=== PATIENT | female | born 1965 | race African-American/Black ===

== ENCOUNTER 2017-01-31 20:48 | Inpatient (IN) ==
--- NOTE | 2017-01-31 21:48 | General Surgery Consult Note ---
Assessment and Plan (1) ESRD on hemodialysis Status: Acute Assessment and plan: Impression: Bleeding left AV fistula Plan: Site of bleeding was oversewn in the emergency room. See the operative report. Patient had near syncopal episode and appeared disoriented for a brief time. She is being admitted. Current Visit: No History of Present Illness Chief complaint: Bleeding AV fistula History of present illness: Ms. Jiménez is a 51 year old female who presented to the emergency room with bleeding from an AV fistula. Reportedly patient lost 1-1-1/2 L of blood prior to arrival. There is currently a pressure dressing in place and it is not bleeding through. Home Medications Medication Instructions Recorded Confirmed Type Acetaminophen Tab [Tylenol Tab] 650 mg PO Q4H PRN 01/16/17 01/16/17 History Aspirin 325 mg PO DAILY 01/16/17 01/16/17 History Atorvastatin Calcium 40 mg PO BEDTIME 01/16/17 01/16/17 History Epoetin Bony [Procrit] 10,000 unit SUBCUT PRN PRN 01/16/17 01/16/17 History Fluticasone Propionate [Flonase 1 spray BOTH NARES BID 01/16/17 01/16/17 History Allergy Relief] HYDROcodone/ACETAMIN 5-325 [[place] 1 tablet PO Q4H PRN 01/16/17 01/16/17 History 5-325] Heparin Sodium,Porcine [Heparin 10 ml IV PRN PRN 01/16/17 01/16/17 History Sodium] Mag Hydrox/Aluminum Hyd/Simeth 30 ml PO Q6HR PRN 01/16/17 01/16/17 History [Maalox Maximum Strength Susp] Magnesium Hydroxide Susp [Milk of 45 ml PO PRN PRN 01/16/17 01/16/17 History Magnesia] OLANZapine [Olanzapine] 5 mg PO BEDTIME 01/16/17 01/16/17 History Sertraline HCl 50 mg PO DAILY 01/16/17 01/16/17 History Apixaban [Eliquis] 2.5 mg PO BID tablet 01/29/17 Rx hydrALAZINE TAB [Apresoline Tab] 75 mg PO BID tablet 01/29/17 Rx Allergies Allergy/AdvReac Type Severity Reaction Status Date / Time No Known Allergies Allergy Verified 01/16/17 11:43 Medical,Surgical,& Family Hx - Medical History Cardio: History of: Hypertension Neurology: History of: Cerebrovascular Accident HEENT: History of: Eye Problem (cataracts bilaterally) Endocrine: History of: Dyslipidemia Respiratory: History of: Bronchitis, Pneumonia Renal: History of: Renal Failure (Left upper graft, on Dialysis since 2002, goes --, followed by Dr. Caputo) Genitourinary: History of: Recurring Urinary Tract Infections Gastrointestinal: History of: GERD, Hemorrhoids, Hepatitis (Hepatitis C from blood transfusion) Musculoskeletal: History of: Musculoskeletal Problems (Left sided paralysis r/t stroke) Hematology: History of: Anemia (Previous blood transfusion) No history of: Blood Transfusion Reaction Reproductive: History of: Sexually Transmitted Disorders (Trichomoniasis) Other: No history of: Anesthesia Reactions - Surgical History Abdominal Surgeries: Surgical HX of: Abdominal Surgery (Peg tube placement and removal), EGD Reproductive Surgeries: Surgical HX of;: Section, Hysterectomy - Family History Family History: Reports;: Family Hypertension, Family Stroke (father) Denies;: Family Anesthesia Reaction, Family Cancer, Family Diabetes, Family Psychiatric Problems - Social History Smoking Status: Former smoker Frequency of Alcohol Use: None Type of Drug Use: None Exam - Constitutional Vitals: Period Temp Pulse Resp BP Sys/Vera Pulse Ox Last 24 Hr 98.1 F-98.1 F 104-106 17-17 100/53 100 General appearance: mild distress - Extremities Exam Extremities exam: Present: other (A pressure dressing was taken down there was active brisk bleeding from the left AV fistula. This was oversewn. See the operative report.) - Neurological Exam Neurological exam: Present: alert Speech: Present: normal Results - Labs Labs: Labs are pending
--- NOTE | 2017-01-31 21:48 | Emergency Department Note ---
ICamacho Mantricia, am scribing for, and in the presence of, Doreen Lozano DO 21:38. IBlake Debra, DO, personally performed the services described in this documentation, ascribed by Loulou Sauer in my presence, and it is both accurate and complete . Arrival - Arrival Chief Complaint: Non-Specific Stated Complaint: Bleeding ED Nursing Triage Note: Patient is a transfer from [facility] in [place]. Nurse states that patient bump her arm on the wall and her AV fistula began bleeding and would not stop. Reports that patient lost about 1/2 liter of blood. Hx HTN, ESRD, dialysis, CVA with left sided weakness. 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 Nurses report that pt bumped her arm on a wall and her AV fistula began to bleed and would not stop. They report that pt bled about 20 minutes before EMS and lost about a liter of blood. Pt dialyzes every M/W/F . Pt arrived to ED with a pressure dressing but blood is still visible. Pt states that she has been recently complaining that the area around her AV fistula has been swelling. While in ED, pt is diaphoretic but awake and alert and states that she is scared. Pt has a blood pressure of 100/ 53 taken on her let thigh. She is a Brown pt; however, she was brought to ED. Pt has a PMHx of HTN, ESRD, dialysis, and CVA with left sided weakness. No other complaints were reported to ED. Onset (ago): hour(s) Consistency: constant Severity: severe Date of Last Menstrual Period: hysterectomy Allergies/Adverse Reactions: Allergies Allergy/AdvReac Type Severity Reaction Status Date / Time No Known Allergies Allergy Verified 01/16/17 11:43 Home Medications: Home Medications Medication Instructions Recorded Confirmed Type Acetaminophen Tab [Tylenol Tab] 650 mg PO Q4H PRN 01/16/17 01/16/17 History Aspirin 325 mg PO DAILY 01/16/17 01/16/17 History Atorvastatin Calcium 40 mg PO BEDTIME 01/16/17 01/16/17 History Epoetin Bony [Procrit] 10,000 unit SUBCUT PRN PRN 01/16/17 01/16/17 History Fluticasone Propionate [Flonase 1 spray BOTH NARES BID 01/16/17 01/16/17 History Allergy Relief] HYDROcodone/ACETAMIN 5-325 [[place] 1 tablet PO Q4H PRN 01/16/17 01/16/17 History 5-325] Heparin Sodium,Porcine [Heparin 10 ml IV PRN PRN 01/16/17 01/16/17 History Sodium] Mag Hydrox/Aluminum Hyd/Simeth 30 ml PO Q6HR PRN 01/16/17 01/16/17 History [Maalox Maximum Strength Susp] Magnesium Hydroxide Susp [Milk of 45 ml PO PRN PRN 01/16/17 01/16/17 History Magnesia] OLANZapine [Olanzapine] 5 mg PO BEDTIME 01/16/17 01/16/17 History Sertraline HCl 50 mg PO DAILY 01/16/17 01/16/17 History Apixaban [Eliquis] 2.5 mg PO BID tablet 01/29/17 Rx hydrALAZINE TAB [Apresoline Tab] 75 mg PO BID tablet 01/29/17 Rx Review of System - Review of System 12 point system: reviewed and no additional remarkable complaints except as stated - Review of System Constitutional: Present: diaphoresis, other (AV fistula bleed). Absent: chills , fever Respiratory: Absent: cough Cardiovascular: Absent: chest pain Gastrointestinal: Absent: abdominal pain, nausea, vomiting, diarrhea Musculoskeletal: Present: other (LUE swelling). Absent: arm pain, back pain, leg pain, neck pain Medical,Surgical,& Family Hx - Medical History Cardio: History of: Hypertension Neurology: History of: Cerebrovascular Accident HEENT: History of: Eye Problem (cataracts bilaterally) Endocrine: History of: Dyslipidemia Respiratory: History of: Bronchitis, Pneumonia Renal: History of: Renal Failure (Left upper graft, on Dialysis since 2002, goes --, followed by Dr. Caputo) Genitourinary: History of: Recurring Urinary Tract Infections Gastrointestinal: History of: GERD, Hemorrhoids, Hepatitis (Hepatitis C from blood transfusion) Musculoskeletal: History of: Musculoskeletal Problems (Left sided paralysis r/t stroke) Hematology: History of: Anemia (Previous blood transfusion) No history of: Blood Transfusion Reaction Reproductive: History of: Sexually Transmitted Disorders (Trichomoniasis) Other: No history of: Anesthesia Reactions - Surgical History Abdominal Surgeries: Surgical HX of: Abdominal Surgery (Peg tube placement and removal), EGD Reproductive Surgeries: Surgical HX of;: Section, Hysterectomy - Family History Family History: Reports;: Family Hypertension, Family Stroke (father) Denies;: Family Anesthesia Reaction, Family Cancer, Family Diabetes, Family Psychiatric Problems - Social History Smoking Status: Former smoker Frequency of Alcohol Use: None Type of Drug Use: None Exam Vital Signs: Vital Signs Temperature 98.1 F 01/31/17 20:48 Pulse Rate 89 01/31/17 22:26 Respiratory Rate 19 01/31/17 22:26 Blood Pressure 89/53 01/31/17 22:26 O2 Sat by Pulse Oximetry 100 01/31/17 22:26 - General General appearance: alert, in distress (mild), obese - Head Head exam: Present: atraumatic, normocephalic - Eye Eye exam: Present: normal appearance, PERRL, EOMI - ENT ENT exam: Present: normal exam - Neck Neck exam: Present: normal inspection - Chest Chest inspection: Present: normal inspection - Respiratory Respiratory exam: Present: normal lung sounds bilaterally - Cardiovascular Cardiovascular exam: Present: regular rate, normal rhythm, normal heart sounds - Abdominal Exam Abdominal exam: Present: soft. Absent: distention, tenderness, guarding, rebound - Extremities Exam Extremities exam: Present: tenderness, other (open lacerations to left AV fistula; actively bleeding). Absent: normal capillary refill - Back Exam Back exam: Present: normal inspection - Neurological Exam Neurological exam: Present: alert, oriented X3, CN II-XII intact - Psychiatric Psychiatric exam: Present: normal affect, normal mood - Skin Skin exam: Present: warm, dry, intact, normal color Course Course Narrative: pt will be admitted to hospitalist for anemia. Results - Labs CBC & BMP: 01/31/17 21:38 Lab Results: I have reviewed the patients labs - EKG EKG results: interpreted by JAXON, sinus rhythm EKG shows: tachycardia Disposition Clinical Impression: Anemia Case discussed with: patient Disposition: Still a Patient Condition: Stable Time of Disposition: 22:34
--- NOTE | 2017-01-31 21:54 | Operative Note ---
Date of procedure: 01/31/17 Pre-op diagnosis: Hemorrhage from left AV fistula Post-op diagnosis: same Procedure: Procedure performed: Repair of bleeding AV fistula Procedure in detail: When the dressing was removed Betadine was quickly applied and pressure held proximal and distal to the active bleeding site on the fistula. This helped control the fistula bleeding somewhat. A 2-0 nylon suture was then used to repair the bleeding site by oversewing the skin and [id number] fashion. Pressure was released and there was no further bleeding. There is no evidence of hematoma formation. A thrill was auscultated in the fistula both proximal and distal to the repair site. Pressure dressing applied patient tolerated the procedure well. Anesthesia: none Surgeon / Physician: William Kilgore Estimated blood loss: other (50 cc) Specimens: none sent Condition: stable Disposition: no change Discharge Plan - Discharge Medications No Action Sertraline HCl 50 mg PO DAILY OLANZapine [Olanzapine] 5 mg PO BEDTIME HYDROcodone/ACETAMIN 5-325 [[place] 5-325] 1 tablet PO Q4H PRN PRN Reason: Pain Moderate To Severe (4-10) Acetaminophen Tab [Tylenol Tab] 650 mg PO Q4H PRN PRN Reason: Pain Mild (1-3) And/Or Fever Epoetin Bony [Procrit] 10,000 unit SUBCUT PRN PRN PRN Reason: Dialysis Heparin Sodium,Porcine [Heparin Sodium] 10 ml IV PRN PRN PRN Reason: Dialysis Mag Hydrox/Aluminum Hyd/Simeth [Maalox Maximum Strength Susp] 30 ml PO Q6HR PRN PRN Reason: Indigestion Magnesium Hydroxide Susp [Milk of Magnesia] 45 ml PO PRN PRN PRN Reason: Indigestion Fluticasone Propionate [Flonase Allergy Relief] 1 spray BOTH NARES BID Atorvastatin Calcium 40 mg PO BEDTIME Aspirin 325 mg PO DAILY Apixaban [Eliquis] 2.5 mg PO BID tablet hydrALAZINE TAB [Apresoline Tab] 75 mg PO BID tablet - Follow Up or Referral - Forms/Instructions
[2017-01-31 22:17] LABS: Basophils % 0.2 % (0.0-0.8); Eosinophils # 0.2 10*3/uL (0.0-0.87); Eosinophils % 1.4 % (0.00-10.9); Hematocrit 18.5 VOL% (35.7-47.0); Immature Granulocytes % 0.6 %; Immature Granulocytes Absolute 0.08 #; Lymphocytes # 2.1 10*3/uL (1.4-4.0); Lymphocytes % 15.3 % (21.3-54.2); Mean Corpuscular HGB Conc 31.4 GM/DL (32-36); Mean Corpuscular Hemoglobin 32 PG (27-34); Mean Corpuscular Volume 102.8 FL (87-102); Mean Platelet Volume 9.2 FL (9.6-12.0); Monocytes # 0.8 10*3/uL (0.11-0.8); Monocytes % 5.5 % (1.7-12.7); Neutrophils # 10.7 10*3/uL (1.4-7.4); Platelet Count 352 T/CUMM (130-400); Red Cell Distribution Width 14.7 % (9.3-17.3); White Blood Count 13.8 T/CUMM (4-12)
[2017-01-31 22:19] LABS: Hemoglobin 5.8 GM/DL (12.0-16.0)
[2017-01-31] MEDS ORDERED: ACETAMINOPHEN 325 MG TABLET PO PRN (22:45)
[2017-01-31] MEDS ORDERED: SODIUM CHLORIDE 0.9% 250 ML IV PRN (22:45)
[2017-01-31 22:46] LABS: Alanine Aminotransferase 14 U/L (13-56); Alkaline Phosphatase 67 U/L (45-117); Aspartate Amino Transferase 20 U/L (0-37); Bilirubin,Total < 0.39 MG/DL (0.2-1.0); Blood Urea Nitrogen 44 MG/DL (7-18); Calcium 7.2 MG/DL (8.5-10.1); Glucose 142 MG/DL (74-106); Osmolality,Calculated 287.7 MOS/KG (273-304); Sodium 138 MMOL/L (136-145); Total Protein 5.5 G/DL (6.4-8.3)
[2017-01-31 22:48] LABS: Troponin I Only 0.102 NG/ML (0.00-0.045)
[2017-01-31 22:49] LABS: Potassium 6.4 MMOL/L (3.5-5.1)
[2017-01-31] MEDS ORDERED: DEXTROSE 50% 25 GM/50 ML SYRINGE IV STA (23:05)
[2017-01-31] MEDS ORDERED: INSULIN REGULAR 100 UNIT/ML IV STA (23:06)
[2017-01-31] MEDS ORDERED: SODIUM POLYSTYRENE SULFATE 15 GM/60 ML BOTTLE PO STA (23:07)
[2017-01-31] MEDS ORDERED: ACETAMINOPHEN 325 MG TABLET ONE (23:08)
[2017-01-31] MEDS ORDERED: ONDANSETRON 4 MG/2 ML VIAL IV PRN (23:23)
[2017-01-31] MEDS ORDERED: GLUCAGON 1 MG VIAL IM PRN (23:31)
[2017-01-31] MEDS ORDERED: DEXTROSE 50% 25 GM/50 ML SYRINGE IV PRN (23:31)
--- NOTE | 2017-01-31 23:48 | Hospitalist History & Physical ---
Assessment and Plan (1) Bleeding Status: Acute Assessment and plan: Patient is a status post AV fistula repair after bleeding from injury. To be followed by Dr. Kilgore Current Visit: Yes (2) Anemia Status: Acute Assessment and plan: Patient has chronic anemia but now acute worsening due to left AV fistula bleeding . Packed RBCs being transfused will monitor hemoglobin and hematocrit Current Visit: Yes (3) Chest pain Status: Acute Assessment and plan: Patient had transient chest pain probably due to hypotension she was severe anemia with bleeding troponins seem to be elevated but patient has end-stage renal disease status and on dialysis will order serial EKG and cardiac enzymes Current Visit: Yes (4) Diabetes Status: Chronic Assessment and plan: Monitor blood sugar with a short acting insulin on as needed Current Visit: No (5) Hyperkalemia Status: Acute Assessment and plan: Patient has end-stage liver disease status and noted hyperkalemia will need to be monitored closely to not see any changes on EKG. Patient was given IV insulin and D50. Kayexalate was also given. Nephrology consulted for need of dialysis Current Visit: Yes (6) ESRD on hemodialysis Status: Chronic Assessment and plan: Nephrology consulted. 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 Jiménez is a 51 year old female with history of hypertension dyslipidemia CVA end-stage renal disease and anemia she has been on dialysis for 12 years and has left upper extremity AV fistula. She was recently admitted after stroke with left-sided weakness and resident at a half-way in [place]. She accidentally bumped her left arm with the food tray and started having bleeding from AV fistula she was reported to have profuse bleeding and approximately 1 L to 1.5 L of blood loss. Pressure dressing was applied prior to coming to the hospital. Patient was seen by Dr. Kilgore and immediately performed repair of a bleeding AV fistula. Bleeding has stopped now. Patient has been hypeotensive and she complained of chest pain which was resolved spontaneously. She had a lab work done which showed hemoglobin 5.8 hematocrit 18.5. This is low compared to recent hemoglobin of 8.2. Her chemistry was significant for potassium 6.4 and creatinine 7.10 and glucose 142 [id number] glucose was 188. EKG was done and did not show any obvious sign of hypokalemia. IV regular insulin and dextrose 50% was ordered along with Kayexalate to treat hypokalemia. Patient blood pressure was improved after fluid given in the ER. Blood was ordered and she is being transfused in the ER. She has no symptoms shortness of breath fever nausea vomiting. She does mention some loose stool today. She has been on dialysis for 12 years and does not make any urine. Home Medications Medication Instructions Recorded Confirmed Type Acetaminophen Tab [Tylenol Tab] 650 mg PO Q4H PRN 01/16/17 01/16/17 History Aspirin 325 mg PO DAILY 01/16/17 01/16/17 History Atorvastatin Calcium 40 mg PO BEDTIME 01/16/17 01/16/17 History Epoetin Bony [Procrit] 10,000 unit SUBCUT PRN PRN 01/16/17 01/16/17 History Fluticasone Propionate [Flonase 1 spray BOTH NARES BID 01/16/17 01/16/17 History Allergy Relief] HYDROcodone/ACETAMIN 5-325 [[place] 1 tablet PO Q4H PRN 01/16/17 01/16/17 History 5-325] Heparin Sodium,Porcine [Heparin 10 ml IV PRN PRN 01/16/17 01/16/17 History Sodium] Mag Hydrox/Aluminum Hyd/Simeth 30 ml PO Q6HR PRN 01/16/17 01/16/17 History [Maalox Maximum Strength Susp] Magnesium Hydroxide Susp [Milk of 45 ml PO PRN PRN 01/16/17 01/16/17 History Magnesia] OLANZapine [Olanzapine] 5 mg PO BEDTIME 01/16/17 01/16/17 History Sertraline HCl 50 mg PO DAILY 01/16/17 01/16/17 History Apixaban [Eliquis] 2.5 mg PO BID tablet 01/29/17 Rx hydrALAZINE TAB [Apresoline Tab] 75 mg PO BID tablet 01/29/17 Rx Allergies Allergy/AdvReac Type Severity Reaction Status Date / Time No Known Allergies Allergy Verified 01/16/17 11:43 Medical,Surgical,& Family Hx - Medical History Cardio: History of: Hypertension Neurology: History of: Cerebrovascular Accident HEENT: History of: Eye Problem (cataracts bilaterally) Endocrine: History of: Dyslipidemia Respiratory: History of: Bronchitis, Pneumonia Renal: History of: Renal Failure (Left upper graft, on Dialysis since 2002, goes -W-, followed by Dr. Caputo) Genitourinary: History of: Recurring Urinary Tract Infections Gastrointestinal: History of: GERD, Hemorrhoids, Hepatitis (Hepatitis C from blood transfusion) Musculoskeletal: History of: Musculoskeletal Problems (Left sided paralysis r/t stroke) Hematology: History of: Anemia (Previous blood transfusion) No history of: Blood Transfusion Reaction Reproductive: History of: Sexually Transmitted Disorders (Trichomoniasis) Other: No history of: Anesthesia Reactions - Surgical History Abdominal Surgeries: Surgical HX of: Abdominal Surgery (Peg tube placement and removal), EGD Reproductive Surgeries: Surgical HX of;: Section, Hysterectomy - Family History Family History: Reports;: Family Hypertension, Family Stroke (father) Denies;: Family Anesthesia Reaction, Family Cancer, Family Diabetes, Family Psychiatric Problems - Social History Smoking Status: Former smoker Frequency of Alcohol Use: None Type of Drug Use: None 12 point system: reviewed and no additional remarkable complaints except as stated (Mentioned in HPI) Exam - Constitutional Vitals: Period Temp Pulse Resp BP Sys/Vera Pulse Ox Last 24 Hr 98.1 F-98.6 F 87-106 17-19 80-104/45-66 98-100 General appearance: no acute distress, over weight - Head Head exam: Present: normal inspection, normocephalic, atraumatic - Eye Eye exam: Present: EOMI. Absent: conjunctival injection Pupils: Present: NEEL, normal accommodation - ENT ENT exam: Present: other (pale oral mucosa otherwise no significant abnormalities) - Neck Neck exam: Present: other (Supple) - Respiratory Respiratory exam: Present: clear to auscultation bilaterally. Absent: rales, rhonchi - Cardiovascular Cardiovascular exam: Present: regular rate and rhythm. Absent: tachycardia - GI/Abdominal GI/Abdominal exam: Present: normal bowel sounds, soft. Absent: distended, tenderness - Extremities Exam Extremities exam: Present: normal inspection. Absent: edema - Neurological Exam Neurological exam: Present: alert, oriented X3, motor sensory deficit (Left- sided weakness ) - Psychiatric Psychiatric exam: Present: normal affect, normal mood - Skin Skin exam: Present: pallor Results - Labs CBC & BMP: 01/31/17 21:38 01/31/17 21:38 Lab Results: I have reviewed the past 24 hour labs Quality Measures - VTE Contraindication to Pharmacological VTE Prophylaxis: Already on Theraputic Agent , No Prophylaxis Needed
[2017-02-01] MEDS ORDERED: INSULIN REGULAR 100 UNIT/ML ONE (00:06)
[2017-02-01] MEDS ORDERED: SODIUM POLYSTYRENE SULFATE 15 GM/60 ML BOTTLE ONE (00:06)
[2017-02-01] MEDS ORDERED: DEXTROSE 50% 25 GM/50 ML SYRINGE IV ONE (00:07)
--- NOTE | 2017-02-01 03:14 | Order Completion Report ---
See report scanned to EMR
[2017-02-01 03:34] LABS: Basophils % 0.3 % (0.0-0.8); Eosinophils % 0.1 % (0.00-10.9); Hematocrit 20.7 VOL% (35.7-47.0); Immature Granulocytes % 0.4 %; Immature Granulocytes Absolute 0.03 #; Lymphocytes # 0.6 10*3/uL (1.4-4.0); Lymphocytes % 8.2 % (21.3-54.2); Mean Corpuscular HGB Conc 30.9 GM/DL (32-36); Mean Corpuscular Hemoglobin 30 PG (27-34); Mean Corpuscular Volume 96.3 FL (87-102); Mean Platelet Volume 9.7 FL (9.6-12.0); Monocytes # 0.4 10*3/uL (0.11-0.8); Monocytes % 5.7 % (1.7-12.7); Neutrophils # 6.6 10*3/uL (1.4-7.4); Neutrophils % 85.3 % (38.7-73.9); Platelet Count 200 T/CUMM (130-400); Red Blood Count 2.15 MC/CUMM (3.8-5.5); Red Cell Distribution Width 19.3 % (9.3-17.3); White Blood Count 7.7 T/CUMM (4-12)
[2017-02-01 03:39] LABS: Hemoglobin 6.4 GM/DL (12.0-16.0)
[2017-02-01 03:51] LABS: Potassium 6.3 MMOL/L (3.5-5.1)
[2017-02-01] MEDS ORDERED: INSULIN REGULAR 100 UNIT/ML IV STA (03:53)
[2017-02-01] MEDS ORDERED: DEXTROSE 50% 25 GM/50 ML SYRINGE IV STA (03:55)
[2017-02-01 04:02] LABS: Albumin 2.3 G/DL (3.4-5.0); Calcium 9.5 MG/DL (8.5-10.1); Osmolality,Calculated 287.7 MOS/KG (273-304); Phosphorous 5.9 MG/DL (2.5-4.9)
[2017-02-01 04:18] LABS: Potassium 6.2 MMOL/L (3.5-5.1)
[2017-02-01] MEDS: INSULIN LISPRO 100 UNIT/ML SUBCUT SCH ×4 (07:08→20:52)
--- NOTE | 2017-02-01 08:46 | Order Completion Report ---
See report scanned to EMR
[2017-02-01] MEDS: PANTOPRAZOLE 40 MG TABLET PO SCH (09:41)
[2017-02-01] MEDS: ASPIRIN 325 MG TABLET PO SCH (09:41)
[2017-02-01] MEDS: FLUTICASONE 50 MCG NASAL SPRAY 16 GM BOTTLE BOTH NARES SCH ×2 (09:41→21:05)
[2017-02-01] MEDS: SERTRALINE 50 MG TABLET PO SCH (09:41)
[2017-02-01 10:38] LABS: Hematocrit 20.6 VOL% (35.7-47.0)
[2017-02-01 10:59] LABS: Calcium 9.4 MG/DL (8.5-10.1)
[2017-02-01 11:06] LABS: Potassium 6.2 MMOL/L (3.5-5.1)
[2017-02-01] MEDS ORDERED: SODIUM POLYSTYRENE SULFATE 15 GM/60 ML BOTTLE PO ONE ×2 (11:08→14:00)
--- NOTE | 2017-02-01 11:16 | Hospitalist Progress Note ---
Assessment and Plan (1) ESRD on hemodialysis Status: Chronic Assessment and plan: Patient is on hemodialysis Thursday. Nephrology is on the case Current Visit: No (2) Acute CVA (cerebrovascular accident) Status: Acute Current Visit: No (3) Anemia Status: Acute Current Visit: Yes Qualifiers: Anemia type: other cause Other causes of anemia: acute posthemorrhagic Qualified Code(s): D62 - Acute posthemorrhagic anemia (4) Hyperkalemia Status: Acute Assessment and plan: Patient will receive Kayexalate for now. Nephrology is attending to this at this point. Current Visit: Yes Hospitalist: Subjective Interval history: Patient has been seen interviewed and examined and chart has been reviewed. Admitted overnight following traumatic injury to dialysis fistula in the left upper extremity. Patient reported got hit in this area with a food tray. There was uncontrollable bleeding being that the patient was alert anticoagulated with anti-factor 10 product. This anticoagulant has since been discontinued. Patient is no longer bleeding. Repeat hematocrit at this point is around 21. Patient however maintains a high potassium and a nephrology is on the case to know about it. No other symptoms. Exam - Constitutional Vitals: Period Temp Pulse Resp BP Sys/Vera Pulse Ox Last 24 Hr 97.4 F-98.6 F 86-106 14-22 80-186/45-87 92-100 General appearance: over weight - Head Head exam: Present: normocephalic - Eye Eye exam: Present: other (Patient has a history of stroke with left-sided weakness of the facets.) - Respiratory Respiratory exam: Present: clear to auscultation bilaterally (Poor inspiratory pool) - Cardiovascular Cardiovascular exam: Present: regular rate and rhythm - Extremities Exam Extremities exam: Present: full ROM - Neurological Exam Neurological exam: Present: other (Chou is not vocalizing) - Skin Skin exam: Present: normal color, warm, dry Results - Labs CBC & BMP: 02/01/17 10:02 02/01/17 10:02 Lab Results: I have reviewed the past 24 hour labs Quality Measures - VTE Contraindication to Pharmacological VTE Prophylaxis: Already on Theraputic Agent , No Prophylaxis Needed
--- NOTE | 2017-02-01 11:34 | Nephrology Consult Note ---
History of Present Illness Chief complaint: End-stage renal disease History of present illness: Ms. Jiménez is a 51 year old female with history of end-stage renal disease due to hypertension diabetes currently dialyzes at the [facility] on a Thursday schedule. She presented on yesterday after her AV graft started hemorrhaging. She emergently had the dialysis site secured by surgery. She has received packed red blood cells and hemoglobin is now 7.0. Serum potassium noted to be 6.2. She is getting scheduled Kayexalate. She mentions that she is feeling better since since last night. No shortness of breath or chest pain. Nephrology is been consulted for renal issues. At this time plan to continue with Kayexalate. We will repeat potassium lab draw this afternoon. If potassium is below 5.9 will plan for hemodialysis on tomorrow. Patient appears to be hemodynamically stable. Home Medications Medication Instructions Recorded Confirmed Type Acetaminophen Tab [Tylenol Tab] 650 mg PO Q4H PRN 01/16/17 01/31/17 History Aspirin 325 mg PO DAILY 01/16/17 01/31/17 History Atorvastatin Calcium 40 mg PO BEDTIME 01/16/17 01/31/17 History Epoetin Bony [Procrit] 10,000 unit SUBCUT PRN PRN 01/16/17 01/31/17 History Fluticasone Propionate [Flonase 1 spray BOTH NARES BID 01/16/17 01/31/17 History Allergy Relief] HYDROcodone/ACETAMIN 5-325 [[place] 1 tablet PO Q4H PRN 01/16/17 01/31/17 History 5-325] Heparin Sodium,Porcine [Heparin 10 ml IV PRN PRN 01/16/17 01/31/17 History Sodium] Mag Hydrox/Aluminum Hyd/Simeth 30 ml PO Q6HR PRN 01/16/17 01/31/17 History [Maalox Maximum Strength Susp] Magnesium Hydroxide Susp [Milk of 45 ml PO PRN PRN 01/16/17 01/31/17 History Magnesia] OLANZapine [Olanzapine] 5 mg PO BEDTIME 01/16/17 01/31/17 History Sertraline HCl 50 mg PO DAILY 01/16/17 01/31/17 History Apixaban [Eliquis] 2.5 mg PO BID tablet 01/29/17 01/31/17 Rx hydrALAZINE TAB [Apresoline Tab] 75 mg PO BID tablet 01/29/17 01/31/17 Rx Allergies Allergy/AdvReac Type Severity Reaction Status Date / Time No Known Allergies Allergy Verified 01/16/17 11:43 Medical,Surgical,& Family Hx - Medical History Cardio: History of: Hypertension Neurology: History of: Cerebrovascular Accident HEENT: History of: Eye Problem (cataracts bilaterally) Endocrine: History of: Dyslipidemia Respiratory: History of: Bronchitis, Pneumonia Renal: History of: Renal Failure (Left upper graft, on Dialysis since 2002, goes --, followed by Dr. Caputo) Genitourinary: History of: Recurring Urinary Tract Infections Gastrointestinal: History of: GERD, Hemorrhoids, Hepatitis (Hepatitis C from blood transfusion) Musculoskeletal: History of: Musculoskeletal Problems (Left sided paralysis r/t stroke) Hematology: History of: Anemia (Previous blood transfusion) No history of: Blood Transfusion Reaction Reproductive: History of: Sexually Transmitted Disorders (Trichomoniasis) Other: No history of: Anesthesia Reactions - Surgical History Abdominal Surgeries: Surgical HX of: Abdominal Surgery (Peg tube placement and removal), EGD Reproductive Surgeries: Surgical HX of;: Section, Hysterectomy - Family History Family History: Reports;: Family Hypertension, Family Stroke (father) Denies;: Family Anesthesia Reaction, Family Cancer, Family Diabetes, Family Psychiatric Problems - Social History Smoking Status: Former smoker Frequency of Alcohol Use: None Type of Drug Use: None Review of Systems Constitutional: fatigue, no anorexia, no fever(s), no lethargy Nose, mouth and throat: no dysphagia Cardiovascular: no chest pain at rest, no chest pain with activity, no dyspnea Respiratory: no dyspnea Exam - Vital Signs Vital signs: Period Temp Pulse Resp BP Sys/Vera Pulse Ox Last 24 Hr 97.4 F-98.6 F 86-106 14-22 80-186/45-87 92-100 - General Appearance General appearance: well-developed, well-nourished EENT: ATNC Neck: supple Respiratory: clear Cardiology: edema, regular rate, regular rhythm Gastrointestinal: normoactive bowel sounds, no tenderness Neurologic: alert and oriented x3, CN 3-12 intact Musculoskeletal: no clubbing Psychiatric: mood/affect appropriate Results - Labs CBC & BMP: 02/01/17 10:02 02/01/17 10:02
[2017-02-01 15:13] LABS: Calcium 9.8 MG/DL (8.5-10.1); Osmolality,Calculated 291.5 MOS/KG (273-304); Potassium 5.5 MMOL/L (3.5-5.1)
[2017-02-01 19:46] LABS: Calcium 9.9 MG/DL (8.5-10.1); Osmolality,Calculated 292.4 MOS/KG (273-304); Potassium 4.3 MMOL/L (3.5-5.1)
[2017-02-01] MEDS: OLANZapine 5 MG TABLET PO SCH (21:05)
[2017-02-01] MEDS: ATORVASTATIN 40 MG TABLET PO SCH (21:06)
[2017-02-02 08:21] LABS: Basophils % 0.3 % (0.0-0.8); Eosinophils # 0.1 10*3/uL (0.0-0.87); Immature Granulocytes % 0.3 %; Immature Granulocytes Absolute 0.01 #; Lymphocytes # 0.4 10*3/uL (1.4-4.0); Lymphocytes % 11.6 % (21.3-54.2); Mean Corpuscular Hemoglobin 30 PG (27-34); Mean Corpuscular Volume 91.7 FL (87-102); Mean Platelet Volume 9.3 FL (9.6-12.0); Monocytes # 0.3 10*3/uL (0.11-0.8); Monocytes % 8.5 % (1.7-12.7); Neutrophils # 2.7 10*3/uL (1.4-7.4); Neutrophils % 77.3 % (38.7-73.9); Platelet Count 150 T/CUMM (130-400); Red Blood Count 1.92 MC/CUMM (3.8-5.5); Red Cell Distribution Width 19.8 % (9.3-17.3); White Blood Count 3.5 T/CUMM (4-12)
[2017-02-02] MEDS: INSULIN LISPRO 100 UNIT/ML SUBCUT SCH ×4 (08:30→20:38)
[2017-02-02 08:35] LABS: Hematocrit 17.6 VOL% (35.7-47.0); Hemoglobin 5.8 GM/DL (12.0-16.0)
[2017-02-02 08:43] LABS: Alanine Aminotransferase 16 U/L (13-56); Albumin 2.2 G/DL (3.4-5.0); Alkaline Phosphatase 44 U/L (45-117); Aspartate Amino Transferase 22 U/L (0-37); Bilirubin,Total < 0.39 MG/DL (0.2-1.0); Blood Urea Nitrogen 55 MG/DL (7-18); Calcium 9.2 MG/DL (8.5-10.1); Glucose 85 MG/DL (74-106); Magnesium 2.2 MG/DL (1.8-2.4); Osmolality,Calculated 288.7 MOS/KG (273-304); Phosphorous 6.8 MG/DL (2.5-4.9); Potassium 3.8 MMOL/L (3.5-5.1); Sodium 138 MMOL/L (136-145); Total Protein 5.8 G/DL (6.4-8.3)
--- NOTE | 2017-02-02 09:27 | Hospitalist Progress Note ---
Assessment and Plan (1) Anemia Status: Acute Assessment and plan: Hemoglobin and hematocrit noted at 5.8/17.6. The patient is scheduled for hemodialysis this a.m. Nephrology to manage. Current Visit: Yes Qualifiers: Anemia type: other cause Other causes of anemia: acute posthemorrhagic Qualified Code(s): D62 - Acute posthemorrhagic anemia (2) Hyperkalemia Status: Acute Assessment and plan: Potassium noted at 3.8 today. We agree with nephrology's plan for hemodialysis today. Current Visit: Yes (3) ESRD on hemodialysis Status: Chronic Assessment and plan: Nephrology to manage. Current Visit: No Hospitalist: Subjective Interval history: Patient seen and examined; chart reviewed. No significant overnight events reported per staff. Potassium 3.8 today; hemodialysis scheduled per nephrology. Exam - Constitutional Vitals: Period Temp Pulse Resp BP Sys/Vera Pulse Ox Last 24 Hr 98.3 F-99.3 F 94-106 17-20 116-140/61-87 95-98 General appearance: normal weight, no acute distress - Head Head exam: Present: normal inspection, normocephalic, atraumatic - Eye Eye exam: Present: EOMI. Absent: conjunctival injection Pupils: Present: NEEL, normal accommodation - ENT ENT exam: Present: normal exam, normal external ear exam, normal oropharynx - Neck Neck exam: Present: normal inspection. Absent: lymphadenopathy, meningismus, tenderness, thyromegaly - Respiratory Respiratory exam: Absent: rales, rhonchi - Cardiovascular Cardiovascular exam: Present: regular rate and rhythm - GI/Abdominal GI/Abdominal exam: Present: normal bowel sounds - Extremities Exam Extremities exam: Present: normal inspection, normal capillary refill, other ( AV fistula noted to left upper arm; positive bruit and thrill) - Back Exam Back exam: Present: normal inspection - Neurological Exam Neurological exam: Present: alert, oriented X3, CN II-XII intact - Psychiatric Psychiatric exam: Present: flat affect - Skin Skin exam: Present: normal color, warm, dry Results - Labs CBC & BMP: 02/02/17 08:03 02/02/17 08:03 Lab Results: I have reviewed the past 24 hour labs Quality Measures - VTE Contraindication to Pharmacological VTE Prophylaxis: Already on Theraputic Agent , No Prophylaxis Needed
--- NOTE | 2017-02-02 11:55 | Dialysis Note ---
Dialysis Note - Dialysis Note Ms. Lindquist is seen during her hemodialysis. Her blood pressures 200/90 and we are going to give her some clonidine 0.1 mg p.o. She is receiving packed cells. Overall she is stable. Her access is not bleeding.
[2017-02-02] MEDS ORDERED: cloNIDine 0.1 MG TABLET PO ONE (12:01)
[2017-02-02 13:35] LABS: Hemoglobin 7.4 GM/DL (12.0-16.0)
[2017-02-02] MEDS: ASPIRIN 325 MG TABLET PO SCH (15:10)
[2017-02-02] MEDS: PANTOPRAZOLE 40 MG TABLET PO SCH (15:31)
[2017-02-02] MEDS: FLUTICASONE 50 MCG NASAL SPRAY 16 GM BOTTLE BOTH NARES SCH ×2 (15:31→20:39)
[2017-02-02] MEDS: SERTRALINE 50 MG TABLET PO SCH (15:31)
[2017-02-02] MEDS: ACETAMINOPHEN 325 MG TABLET PO PRN (17:33)
[2017-02-02] MEDS: ATORVASTATIN 40 MG TABLET PO SCH (20:39)
[2017-02-02] MEDS: OLANZapine 5 MG TABLET PO SCH (20:39)
[2017-02-03 07:40] LABS: Basophils % 0.3 % (0.0-0.8); Eosinophils # 0.1 10*3/uL (0.0-0.87); Hematocrit 18.1 VOL% (35.7-47.0); Immature Granulocytes % 0.5 %; Immature Granulocytes Absolute 0.02 #; Lymphocytes # 0.5 10*3/uL (1.4-4.0); Mean Corpuscular HGB Conc 33.1 GM/DL (32-36); Mean Corpuscular Hemoglobin 31 PG (27-34); Mean Corpuscular Volume 92.3 FL (87-102); Mean Platelet Volume 9.6 FL (9.6-12.0); Monocytes # 0.4 10*3/uL (0.11-0.8); Monocytes % 9.3 % (1.7-12.7); Neutrophils % 75.9 % (38.7-73.9); Platelet Count 160 T/CUMM (130-400); Red Blood Count 1.96 MC/CUMM (3.8-5.5); Red Cell Distribution Width 18.2 % (9.3-17.3)
[2017-02-03 08:13] LABS: Albumin 2.1 G/DL (3.4-5.0); Bilirubin,Total 0.5 MG/DL (0.2-1.0); Calcium 9.4 MG/DL (8.5-10.1); Magnesium 1.9 MG/DL (1.8-2.4); Osmolality,Calculated 284.5 MOS/KG (273-304); Phosphorous 6.6 MG/DL (2.5-4.9); Potassium 3.4 MMOL/L (3.5-5.1); Total Protein 5.8 G/DL (6.4-8.3)
[2017-02-03] MEDS: PANTOPRAZOLE 40 MG TABLET PO SCH (08:28)
[2017-02-03] MEDS: INSULIN LISPRO 100 UNIT/ML SUBCUT SCH ×4 (08:28→20:52)
[2017-02-03] MEDS: FLUTICASONE 50 MCG NASAL SPRAY 16 GM BOTTLE BOTH NARES SCH ×2 (08:28→22:21)
[2017-02-03] MEDS: SERTRALINE 50 MG TABLET PO SCH (08:28)
[2017-02-03] MEDS: ASPIRIN 325 MG TABLET PO SCH (08:29)
--- NOTE | 2017-02-03 09:13 | Hospitalist Progress Note ---
<Anna Tomlinson - Last Filed: 02/03/17 09:10> Assessment and Plan (1) Anemia Status: Acute Assessment and plan: Hemoglobin and hematocrit noted at 5.8/17.6. The patient is scheduled for hemodialysis this a.m. Nephrology to manage. 02/03-hemoglobin hematocrit noted at 6.0/18.1. The patient was transfused during hemodialysis on yesterday and her hemoglobin and hematocrit level improved to 7.4/22.0. No obvious signs of bleeding noted. We will type and screen and transfuse 2 additional units of PRBCs today if okay with nephrology. Current Visit: Yes Qualifiers: Anemia type: other cause Other causes of anemia: acute posthemorrhagic Qualified Code(s): D62 - Acute posthemorrhagic anemia (2) Hyperkalemia Status: Acute Assessment and plan: Potassium noted at 3.8 today. We agree with nephrology's plan for hemodialysis today. Current Visit: Yes (3) ESRD on hemodialysis Status: Chronic Assessment and plan: Nephrology to manage. Current Visit: No Exam - Constitutional Vitals: Period Temp Pulse Resp BP Sys/Vera Pulse Ox Last 24 Hr 98.7 F-100.1 F 81-108 18-20 115-150/59-88 93-97 General appearance: normal weight, no acute distress - Head Head exam: Present: normal inspection, normocephalic, atraumatic - Eye Eye exam: Present: EOMI. Absent: conjunctival injection Pupils: Present: NEEL, normal accommodation - ENT ENT exam: Present: normal exam, normal external ear exam, normal oropharynx - Neck Neck exam: Present: normal inspection. Absent: lymphadenopathy, meningismus, thyromegaly - Respiratory Respiratory exam: Present: clear to auscultation bilaterally. Absent: rales, rhonchi, stridor - Cardiovascular Cardiovascular exam: Present: regular rate and rhythm. Absent: carotid bruit, diastolic murmur, gallop, JVD, rubs, systolic murmur - GI/Abdominal GI/Abdominal exam: Present: normal bowel sounds, soft - Extremities Exam Extremities exam: Present: normal inspection, other (AV fistula noted to left upper arm; positive bruit positive thrill) - Back Exam Back exam: Present: normal inspection - Neurological Exam Neurological exam: Present: alert, oriented X3, CN II-XII intact - Psychiatric Psychiatric exam: Present: normal affect, normal mood - Skin Skin exam: Present: normal color, warm, dry Results - Labs CBC & BMP: 02/03/17 05:31 02/03/17 05:31 Lab Results: I have reviewed the past 24 hour labs Quality Measures - VTE Contraindication to Pharmacological VTE Prophylaxis: Already on Theraputic Agent , No Prophylaxis Needed <Jarred Phillips - Last Filed: 02/03/17 10:47> Hospitalist: Subjective Interval history: I have interviewed and examined the patient and reviewed all available laboratory and radiographic test results. I agree with the assessment and plans as per nurse practitioner Anna Tomlinson. Exam - Constitutional Vitals: Period Temp Pulse Resp BP Sys/Vera Pulse Ox Last 24 Hr 98.7 F-100.1 F 81-108 18-20 115-150/59-88 93-97 Results - Labs CBC & BMP: 02/03/17 05:31 02/03/17 05:31
[2017-02-03] MEDS ORDERED: SODIUM CHLORIDE 0.9% 250 ML IV PRN (11:05)
--- NOTE | 2017-02-03 15:39 | Nephrology Progress Note ---
Nephrology - PN: Subj Interval history: Patient is resting. She did have low-grade temperature today. Hematocrit is still trending down. No active signs of bleeding. Tolerated dialysis on yesterday. Plan for dialysis tomorrow. Will transfuse 2 units packed red blood cells on dialysis tomorrow. Blood cultures are pending. Exam (PN)-Nephrology - Vital Signs Vital signs: Period Temp Pulse Resp BP Sys/Vera Pulse Ox Last 24 Hr 98.6 F-100.1 F 81-108 18-20 115-159/59-88 93-97 - General Appearance General appearance: well-developed, well-nourished EENT: ATNC Neck: supple Respiratory: clear Cardiology: regular rate, regular rhythm Gastrointestinal: normoactive bowel sounds, no tenderness, no guarding Neurologic: alert and oriented x3 Musculoskeletal: no clubbing Psychiatric: mood/affect appropriate - Lab 02/03/17 05:31 02/03/17 05:31 Most recent lab results Calcium 9.4 MG/DL (8.5-10.1) 02/03/17 05:31 Phosphorus 6.6 MG/DL (2.5-4.9) H 02/03/17 05:31 Magnesium 1.9 MG/DL (1.8-2.4) 02/03/17 05:31 Assessment and Plan (1) ESRD on hemodialysis Status: Chronic Current Visit: No (2) Anemia Status: Acute Current Visit: Yes Qualifiers: Anemia type: other cause Other causes of anemia: acute posthemorrhagic Qualified Code(s): D62 - Acute posthemorrhagic anemia (3) Bleeding Status: Acute Current Visit: Yes
[2017-02-03] MEDS ORDERED: EPOETIN ALFA 10,000 UNIT/1 ML VIAL SUBCUT ONE (15:40)
[2017-02-03] MEDS: ACETAMINOPHEN 325 MG TABLET PO PRN ×2 (15:43→20:52)
--- NOTE | 2017-02-03 16:41 | XRay Report ---
Exam: XR chest 1V portable Indication: Fever Comparison study: January 29, 2017 Findings: Cardiac silhouette is mildly enlarged, similar to prior . There has been development of minimal perihilar and right basilar interstitial airspace opacities. There is no focal consolidation, pneumothorax or pleural effusion identified. Prominent degenerative changes noted at the right glenohumeral joint appear similar to prior. No acute osseous abnormality. Impression: Similar mild cardiomegaly and development of slight prominence in the perihilar regions with right more so than left basilar interstitial airspace opacities may represent developing atelectasis or infectious/inflammatory infiltrates. Trace pleural effusions are also suspected. PROCEDURE INTERPRETED AT [facility] DEPARTMENT OF RADIOLOGY Final Report Signed by: Mika Boone
[2017-02-03] MEDS ORDERED: AZITHROMYCIN INJ 500 MG in SODIUM CHLORIDE 0.9% 250 ML IV SCH (18:30)
[2017-02-03] MEDS: LEVALBUTEROL 1.25 MG/3 ML NEB RESP TX SCH ×2 (19:38→23:34)
[2017-02-03] MEDS: ATORVASTATIN 40 MG TABLET PO SCH (20:52)
[2017-02-03] MEDS: OLANZapine 5 MG TABLET PO SCH (20:52)
[2017-02-04] MEDS: LEVALBUTEROL 1.25 MG/3 ML NEB RESP TX SCH ×6 (04:00→23:56)
[2017-02-04 06:43] LABS: Basophils % 0.2 % (0.0-0.8); Eosinophils % 0.5 % (0.00-10.9); Immature Granulocytes % 0.7 %; Immature Granulocytes Absolute 0.03 #; Lymphocytes # 0.5 10*3/uL (1.4-4.0); Lymphocytes % 11.6 % (21.3-54.2); Mean Corpuscular HGB Conc 33.7 GM/DL (32-36); Mean Corpuscular Hemoglobin 31 PG (27-34); Mean Platelet Volume 9.4 FL (9.6-12.0); Monocytes # 0.4 10*3/uL (0.11-0.8); Monocytes % 9.4 % (1.7-12.7); Neutrophils # 3.2 10*3/uL (1.4-7.4); Neutrophils % 77.6 % (38.7-73.9); Platelet Count 150 T/CUMM (130-400); Red Blood Count 1.87 MC/CUMM (3.8-5.5); Red Cell Distribution Width 17.2 % (9.3-17.3); White Blood Count 4.2 T/CUMM (4-12)
[2017-02-04 06:55] LABS: Hematocrit 17.2 VOL% (35.7-47.0); Hemoglobin 5.8 GM/DL (12.0-16.0); Magnesium 1.9 MG/DL (1.8-2.4); Phosphorous 7.8 MG/DL (2.5-4.9)
[2017-02-04] MEDS: ASPIRIN 325 MG TABLET PO SCH (09:18)
[2017-02-04] MEDS: PANTOPRAZOLE 40 MG TABLET PO SCH (09:18)
[2017-02-04] MEDS: SERTRALINE 50 MG TABLET PO SCH (09:18)
[2017-02-04] MEDS: INSULIN LISPRO 100 UNIT/ML SUBCUT SCH ×4 (09:18→20:39)
[2017-02-04] MEDS: FLUTICASONE 50 MCG NASAL SPRAY 16 GM BOTTLE BOTH NARES SCH ×2 (09:18→20:08)
[2017-02-04] MEDS: ACETAMINOPHEN 325 MG TABLET PO PRN ×2 (09:19→21:31)
--- NOTE | 2017-02-04 09:57 | General Surgery Consult Note ---
Assessment and Plan (1) Hemorrhage of arteriovenous fistula Status: Acute Assessment and plan: At this time, we will plan for AV fistula ligation and placement of a tunneled hemodialysis catheter. We will proceed after blood transfusion which is currently in progress per Current Visit: Yes History of Present Illness Chief complaint: bleeding left av fistula History of present illness: Ms. Jiménez is a 51 year old female with end-stage renal disease on hemodialysis who required oversewing of left AV fistula site on 01/31/2017. She was noted to have persistent bleeding from the AV fistula she is currently receiving packed red blood cell transfusion. Of note T-max 100.2 overnight and patient is on Rocephin and Zithromax with blood cultures pending. Home Medications Medication Instructions Recorded Confirmed Type Acetaminophen Tab [Tylenol Tab] 650 mg PO Q4H PRN 01/16/17 01/31/17 History Aspirin 325 mg PO DAILY 01/16/17 01/31/17 History Atorvastatin Calcium 40 mg PO BEDTIME 01/16/17 01/31/17 History Epoetin Bony [Procrit] 10,000 unit SUBCUT PRN PRN 01/16/17 01/31/17 History Fluticasone Propionate [Flonase 1 spray BOTH NARES BID 01/16/17 01/31/17 History Allergy Relief] HYDROcodone/ACETAMIN 5-325 [[place] 1 tablet PO Q4H PRN 01/16/17 01/31/17 History 5-325] Heparin Sodium,Porcine [Heparin 10 ml IV PRN PRN 01/16/17 01/31/17 History Sodium] Mag Hydrox/Aluminum Hyd/Simeth 30 ml PO Q6HR PRN 01/16/17 01/31/17 History [Maalox Maximum Strength Susp] Magnesium Hydroxide Susp [Milk of 45 ml PO PRN PRN 01/16/17 01/31/17 History Magnesia] OLANZapine [Olanzapine] 5 mg PO BEDTIME 01/16/17 01/31/17 History Sertraline HCl 50 mg PO DAILY 01/16/17 01/31/17 History Apixaban [Eliquis] 2.5 mg PO BID tablet 01/29/17 01/31/17 Rx hydrALAZINE TAB [Apresoline Tab] 75 mg PO BID tablet 01/29/17 01/31/17 Rx Allergies Allergy/AdvReac Type Severity Reaction Status Date / Time No Known Allergies Allergy Verified 01/16/17 11:43 Medical,Surgical,& Family Hx - Medical History Cardio: History of: Hypertension Neurology: History of: Cerebrovascular Accident HEENT: History of: Eye Problem (cataracts bilaterally) Endocrine: History of: Dyslipidemia Respiratory: History of: Bronchitis, Pneumonia Renal: History of: Renal Failure (Left upper graft, on Dialysis since 2002, goes --, followed by Dr. Caputo) Genitourinary: History of: Recurring Urinary Tract Infections Gastrointestinal: History of: GERD, Hemorrhoids, Hepatitis (Hepatitis C from blood transfusion) Musculoskeletal: History of: Musculoskeletal Problems (Left sided paralysis r/t stroke) Hematology: History of: Anemia (Previous blood transfusion) No history of: Blood Transfusion Reaction Reproductive: History of: Sexually Transmitted Disorders (Trichomoniasis) Other: No history of: Anesthesia Reactions - Surgical History Abdominal Surgeries: Surgical HX of: Abdominal Surgery (Peg tube placement and removal), EGD Reproductive Surgeries: Surgical HX of;: Section, Hysterectomy - Family History Family History: Reports;: Family Hypertension, Family Stroke (father) Denies;: Family Anesthesia Reaction, Family Cancer, Family Diabetes, Family Psychiatric Problems - Social History Smoking Status: Former smoker Frequency of Alcohol Use: None Type of Drug Use: None - Constitutional Constitutional: Present: fever(s), other (Currently feels very weak with severe anemia) - Cardiovascular Cardiovascular: Absent: chest pain at rest - Gastrointestinal Gastrointestinal: Absent: diarrhea, nausea, vomiting Exam - Constitutional Vitals: Period Temp Pulse Resp BP Sys/Vera Pulse Ox Last 24 Hr 98.3 F-102.9 F 65-115 16-20 122-179/63-99 92-99 - Respiratory Respiratory exam: Present: clear to auscultation bilaterally - Cardiovascular Cardiovascular exam: Present: RRR - GI/Abdominal GI/Abdominal exam: Present: normal bowel sounds, soft. Absent: distended, tenderness - Extremities Exam Extremities exam: Present: other (Oozing from left AV fistula site) - Neurological Exam Neurological exam: Present: alert, oriented X3 Speech: Present: normal - Skin Skin exam: Present: normal color Quality Measures - VTE Contraindication to Pharmacological VTE Prophylaxis: Already on Theraputic Agent , No Prophylaxis Needed Results - Labs CBC & BMP: 02/04/17 05:41 02/03/17 05:31 Lab Results: I have reviewed the past 24 hour labs
[2017-02-04] MEDS ORDERED: DEXTROSE 50% 25 GM/50 ML VIAL IV PRN (11:00)
--- NOTE | 2017-02-04 11:00 | Hospitalist Progress Note ---
<Anna Tomlinson - Last Filed: 02/04/17 10:58> Assessment and Plan (1) Anemia Status: Acute Assessment and plan: Hemoglobin and hematocrit noted at 5.8/17.6. The patient is scheduled for hemodialysis this a.m. Nephrology to manage. 02/03-hemoglobin hematocrit noted at 6.0/18.1. The patient was transfused during hemodialysis on yesterday and her hemoglobin and hematocrit level improved to 7.4/22.0. No obvious signs of bleeding noted. We will type and screen and transfuse 2 additional units of PRBCs today if okay with nephrology. 02/04-blood transfusion placed on hold on yesterday. Hemoglobin and hematocrit noted 5.8/17.2 today. The patient will be transfused during the hemodialysis treatment today per nephrology order. Current Visit: Yes Qualifiers: Anemia type: other cause Other causes of anemia: acute posthemorrhagic Qualified Code(s): D62 - Acute posthemorrhagic anemia (2) Hyperkalemia Status: Acute Assessment and plan: Potassium noted at 3.8 today. We agree with nephrology's plan for hemodialysis today. Current Visit: Yes (3) ESRD on hemodialysis Status: Chronic Assessment and plan: Nephrology to manage. 02/04-noted bloody drainage from left upper extremity AV fistula. General surgery has been consulted to evaluate for Vas-Cath placement. We appreciate the input. We will await further directions. Current Visit: No Exam - Constitutional Vitals: Period Temp Pulse Resp BP Sys/Vera Pulse Ox Last 24 Hr 98.3 F-102.9 F 65-115 16-20 122-179/63-99 92-99 General appearance: normal weight, no acute distress - Head Head exam: Present: normal inspection, normocephalic, atraumatic - Eye Eye exam: Present: EOMI. Absent: conjunctival injection Pupils: Present: NEEL, normal accommodation - ENT ENT exam: Present: normal exam, normal external ear exam, normal oropharynx - Neck Neck exam: Present: normal inspection. Absent: lymphadenopathy, meningismus, tenderness, thyromegaly - Respiratory Respiratory exam: Present: decreased breath sounds - Cardiovascular Cardiovascular exam: Present: regular rate and rhythm. Absent: carotid bruit, diastolic murmur, gallop, JVD, rubs, systolic murmur - GI/Abdominal GI/Abdominal exam: Present: normal bowel sounds, soft - Extremities Exam Extremities exam: Present: edema (Edema noted to left upper AV fistula site; small amount of bloody drainage noted) - Back Exam Back exam: Present: normal inspection - Neurological Exam Neurological exam: Present: alert, oriented X3, altered - Psychiatric Psychiatric exam: Present: normal affect, normal mood - Skin Skin exam: Present: normal color, warm, dry Results - Labs CBC & BMP: 02/04/17 05:41 02/03/17 05:31 Lab Results: I have reviewed the past 24 hour labs Quality Measures - VTE Contraindication to Pharmacological VTE Prophylaxis: Already on Theraputic Agent , No Prophylaxis Needed <Jarred Phillips - Last Filed: 02/04/17 14:22> Hospitalist: Subjective Interval history: Patient was seen and examined by me. I agree with the assessment and plans as per nurse practitioner Anna Tomlinson. Nephrology continues to manage her hemodialysis and anemia. Exam - Constitutional Vitals: Period Temp Pulse Resp BP Sys/Vera Pulse Ox Last 24 Hr 98.3 F-102.9 F 65-115 16-21 122-179/63-99 92-99 Results - Labs CBC & BMP: 02/04/17 05:41 02/03/17 05:31
[2017-02-04] MEDS ORDERED: HEPARIN 5,000 UNIT/1 ML VIAL ONE (12:19)
[2017-02-04] MEDS ORDERED: LIDOCAINE 1%/EPI INJ 20 ML VIAL ONE (12:20)
[2017-02-04] MEDS ORDERED: THROMBIN TOPICAL (RECOMBINANT) 5,000 UNIT VIAL TOP ONE (12:20)
[2017-02-04 12:54] LABS: Hepatitis A Ab IgM Quant 0.12 Index; Hepatitis A Ab IgM Result Negative (Negative); Hepatitis B Core IgM Quant 0.14 Index; Hepatitis B Core IgM Result Negative (Negative); Hepatitis B Surface Ag Quant 0.19 Index; Hepatitis B Surface Ag Result Negative (Negative); Hepatitis C Virus Ab Quant > 11.00 Index; Hepatitis C Virus Ab Result Positive (Negative)
[2017-02-04 12:55] LABS: HIV Antigen/Antibody Result Nonreactive (Nonreactive)
[2017-02-04] MEDS ORDERED: VANCOMYCIN INJ 2,000 MG in SODIUM CHLORIDE 0.9% 500 ML IV ONE ×2 (14:30→21:30)
[2017-02-04] MEDS ORDERED: PROPOFOL 200 MG/20 ML VIAL IV ONE (15:37)
[2017-02-04] MEDS ORDERED: KETAMINE 500 MG/10 ML VIAL ONE (15:38)
[2017-02-04] MEDS ORDERED: fentaNYL 100 MCG/2 ML VIAL ONE (15:38)
[2017-02-04] MEDS ORDERED: MIDAZOLAM 2 MG/2 ML VIAL ONE (15:38)
--- NOTE | 2017-02-04 15:54 | Operative Note ---
Date of procedure: 02/04/17 Pre-op diagnosis: End-stage renal disease, history of bleeding left aVF Post-op diagnosis: same Procedure: Procedure performed: #1 attempted right internal jugular hemodialysis catheter # 2 attempted left internal jugular hemodialysis catheter #3 left internal jugular venogram #4 attempted right femoral hemodialysis catheter #5 attempted left femoral hemodialysis catheter #6 venogram left iliac Procedure in detail: After informed consent was obtained the patient was taken operating suite and laid supine on the operating table. After monitored anesthesia was induced the bilateral neck and chest were prepped and draped in usual sterile fashion. After procedural pause the patient was placed in Trendelenburg position and ultrasound brought over through a sterile sleeve cover. Ultrasound the right neck revealed a dilated but compressible right internal jugular vein. The right internal jugular vein was then accessed using an 18-gauge Seldinger needle under ultrasound guidance. There was return of nonpulsatile dark red blood. Guidewire inserted with some resistance at approximately 3-4 cm beyond the expected tip of the needle. Ultrasound confirmed the guidewire to be in the right internal jugular vein and as I followed it down more proximally the right internal jugular vein collapsed. There was obvious stenosis at this level. The needle and guidewire were removed. Ultrasound of the left neck revealed a patent and compressible left internal jugular vein. Left internal jugular vein was accessed using an 18- gauge Seldinger needle under ultrasound guidance on the first attempt. Again the guidewire went easily at first and then encountered resistance. The guidewire was removed and contrast infused through the needle fluoroscopy demonstrated the left internal jugular vein field but collapsed more proximally indicating severe stenosis. There was either a small open area of the left internal jugular vein or collateralization to another vein that filled retrograde extending up the neck and could have been an anterior jugular. The needle and guidewire were removed. Sterile dressings applied to the bilateral neck. Next the bilateral groins were prepped and draped. Ultrasound again brought over in ultrasound the right groin revealed multiple collaterals confluencing into a predominant vein that appeared to be the femoral vein based on its location to the artery. This vein was accessed using an 18-gauge Seldinger needle under ultrasound guidance on the first attempt and there was return of nonpulsatile dark red blood. As the guidewire was advanced into the needle resistance was met. Attempted to reorient the needle but there was return of more bright red and pulsatile blood. The needle was removed and direct pressure was held at the right groin. There was never any hematoma formation. No active bleeding. The left femoral vein was identified and accessed in the same manner as the previous veins. There is nonpulsatile dark red blood. Again resistance was met at about 10 cm or so. The needle was removed and a smallest dilator was placed over the guidewire under Seldinger technique and fluoroscopic guidance. The guidewire was removed and contrast infused through the dilator. This demonstrated the left iliac vein had stenosis and occlusion with collateralization meandering over to what appeared to be either the right iliac or inferior vena cava. I was never able to get a guidewire in that region. The attempt at access was aborted. Because I was unsuccessful I elected not to ligate the left AV fistula which is not currently bleeding at this time. Sterile dressings applied to all access attempt sites. I placed in pressure dressing on the area of the left AV fistula. Again there is no hematoma in that region there are aneurysmal areas with excoriated skin. I discussed the case with Dr. Boone in interventional radiology who will attempt hemodialysis access. I suspect the bleeding from the left AV fistula is a combination of both repeated sticks and an aneurysmal segment as well as possible outflow stenosis creating increased pressure. There is no evidence of infection of her left arm access at this time. Anesthesia: MAC, local Surgeon / Physician: William Kilgore Estimated blood loss: other (Less than 25 cc) Specimens: none sent Condition: stable Disposition: PACU Results - Labs CBC & BMP: 02/04/17 05:41 02/03/17 05:31 Discharge Plan - Discharge Medications No Action Sertraline HCl 50 mg PO DAILY OLANZapine [Olanzapine] 5 mg PO BEDTIME HYDROcodone/ACETAMIN 5-325 [[place] 5-325] 1 tablet PO Q4H PRN PRN Reason: Pain Moderate To Severe (4-10) Acetaminophen Tab [Tylenol Tab] 650 mg PO Q4H PRN PRN Reason: Pain Mild (1-3) And/Or Fever Epoetin Bony [Procrit] 10,000 unit SUBCUT PRN PRN PRN Reason: Dialysis Heparin Sodium,Porcine [Heparin Sodium] 10 ml IV PRN PRN PRN Reason: Dialysis Mag Hydrox/Aluminum Hyd/Simeth [Maalox Maximum Strength Susp] 30 ml PO Q6HR PRN PRN Reason: Indigestion Magnesium Hydroxide Susp [Milk of Magnesia] 45 ml PO PRN PRN PRN Reason: Indigestion Fluticasone Propionate [Flonase Allergy Relief] 1 spray BOTH NARES BID Atorvastatin Calcium 40 mg PO BEDTIME Aspirin 325 mg PO DAILY Apixaban [Eliquis] 2.5 mg PO BID tablet hydrALAZINE TAB [Apresoline Tab] 75 mg PO BID tablet - Follow Up or Referral - Forms/Instructions
[2017-02-04] MEDS ORDERED: LABETALOL 20 MG/4 ML SYRINGE IV ONE ×3 (16:00→16:31)
--- NOTE | 2017-02-04 16:10 | XRay Report ---
XR chest 1V portable Indication: Multiple attempts for dialysis catheter Comparison: Chest x-ray February 03, 2017 Technique: Single frontal view of the chest. Findings: Continued mild cardiomegaly. Continued right infrahilar atelectasis/consolidation. Small pleural fluid not excluded. No pneumothorax. Visualized osseous and surrounding soft tissue structures appear grossly unchanged. IMPRESSION: No significant interval change. PROCEDURE INTERPRETED AT [facility] DEPARTMENT OF RADIOLOGY Final Report Signed by: Dr Tanner Back
--- NOTE | 2017-02-04 16:53 | Event Note ---
Ms. Lindquist is seen in the recovery room. She could not have her dialysis catheter placed after valiant attempts. She will be undergoing a fistulogram with hopeful salvage of the fistula tomorrow versus placement of a dialysis catheter. In any event she will have dialysis tomorrow. All been discussed with Dr. Boone and he has discussed the plan with the patient. She will be n.p.o. after midnight tonight
--- NOTE | 2017-02-04 17:08 | Inventional Radiology Consult ---
Assessment and Plan - Time spent with patient Time spent with patient: Less than 30 minutes (1) Hemorrhage of arteriovenous fistula Problem details: likely due to central venous stenosis Status: Acute Assessment and plan: will attempt central vein recannilzation tomorrow or place TDC if unsuccessful Current Visit: Yes (2) ESRD on hemodialysis Problem details: does not need dialylsis today Status: Chronic Assessment and plan: plan for dialysis tomorrow when access issues are resolved Current Visit: No IR Consult - Data of Consult Patient: new to practice Consult date: 02/04/17 Requesting Physician: William Kilgore - Consult Narrative Reason for consult: ESRD with excessvie bleeding from AVF and cntl venous stenosis History of present illness: Jessy is a 51 year old F with history of end-stage renal disease and multiple failed dialysis access cc requiring intervention and multiple placement of dialysis catheters and the bilateral neck and bilateral groin in the past. Recently she was admitted with excessive bleeding from the left arm arteriovenous fistula. This was treated with conservative measures but the bleeding recurred. Attempts at ligation of the fistula were aborted when a dialysis catheter could not be placed due to extensive central venous stenosis/ occlusions. Pressure dressing was placed at the fistula bleeding site with control of the hemorrhage. I discussed the case with Dr. Kilgore and will attempt fistulogram as the central venous stenosis is also likely causing excessive bleeding from the fistula. If the central veins can be recannulated, maybe this dialysis access can be preserved. If this is not possible, dialysis catheter placement will be pursued by any means necessary including transhepatic or translumbar. I discussed the risks with patient and she agrees to proceed. Patient is n.p.o. after midnight. - Home Medications and Allergies Home Medications: Home Medications Medication Instructions Recorded Confirmed Type Acetaminophen Tab [Tylenol Tab] 650 mg PO Q4H PRN 01/16/17 01/31/17 History Aspirin 325 mg PO DAILY 01/16/17 01/31/17 History Atorvastatin Calcium 40 mg PO BEDTIME 01/16/17 01/31/17 History Epoetin Bony [Procrit] 10,000 unit SUBCUT PRN PRN 01/16/17 01/31/17 History Fluticasone Propionate [Flonase 1 spray BOTH NARES BID 01/16/17 01/31/17 History Allergy Relief] HYDROcodone/ACETAMIN 5-325 [[place] 1 tablet PO Q4H PRN 01/16/17 01/31/17 History 5-325] Heparin Sodium,Porcine [Heparin 10 ml IV PRN PRN 01/16/17 01/31/17 History Sodium] Mag Hydrox/Aluminum Hyd/Simeth 30 ml PO Q6HR PRN 01/16/17 01/31/17 History [Maalox Maximum Strength Susp] Magnesium Hydroxide Susp [Milk of 45 ml PO PRN PRN 01/16/17 01/31/17 History Magnesia] OLANZapine [Olanzapine] 5 mg PO BEDTIME 01/16/17 01/31/17 History Sertraline HCl 50 mg PO DAILY 01/16/17 01/31/17 History Apixaban [Eliquis] 2.5 mg PO BID tablet 01/29/17 01/31/17 Rx hydrALAZINE TAB [Apresoline Tab] 75 mg PO BID tablet 01/29/17 01/31/17 Rx Allergies/Adverse Reactions: Allergies Allergy/AdvReac Type Severity Reaction Status Date / Time No Known Allergies Allergy Verified 01/16/17 11:43 12 point system: reviewed and no additional remarkable complaints except as stated - Neurological Neurological: Present: other (left arm weakness) Medical,Surgical,& Family Hx - Medical History Cardio: History of: Hypertension Neurology: History of: Cerebrovascular Accident No history of: Seizures HEENT: History of: Eye Problem (cataracts bilaterally) Endocrine: History of: Dyslipidemia Respiratory: History of: Bronchitis, Pneumonia Renal: History of: Renal Failure (Left upper graft, on Dialysis since 2002, goes -, followed by Dr. Caputo) Genitourinary: History of: Recurring Urinary Tract Infections Gastrointestinal: History of: GERD, Hemorrhoids, Hepatitis (Hepatitis C from blood transfusion) Musculoskeletal: History of: Musculoskeletal Problems (Left sided paralysis r/t stroke) Hematology: History of: Anemia (Previous blood transfusion) No history of: Blood Transfusion Reaction Reproductive: History of: Sexually Transmitted Disorders (Trichomoniasis) Other: No history of: Anesthesia Reactions - Surgical History Abdominal Surgeries: Surgical HX of: Abdominal Surgery (Peg tube placement and removal), EGD Reproductive Surgeries: Surgical HX of;: Section, Hysterectomy - Family History Family History: Reports;: Family Hypertension, Family Stroke (father) Denies;: Family Anesthesia Reaction, Family Cancer, Family Diabetes, Family Psychiatric Problems - Social History Smoking Status: Former smoker Frequency of Alcohol Use: None Type of Drug Use: None Exam - Labs CBC & BMP: 02/04/17 05:41 02/03/17 05:31 - Constitutional Vitals: Period Temp Pulse Resp BP Sys/Vera Pulse Ox Last 24 Hr 98.3 F-102.9 F 65-115 16-21 122-195/63-99 96-100 General appearance: over weight, morbidly obese - Eye Eye exam: Present: EOMI - Respiratory Respiratory exam: Present: clear to auscultation bilaterally - Cardiovascular Cardiovascular exam: Present: regular rate and rhythm - GI/Abdominal GI/Abdominal exam: Present: normal bowel sounds - Expanded Left Upper Extremity Upper Arm exam: Present: swelling Forearm wrist exam: Present: swelling (bandaging in place so could not assess the fistula directly.) - Neurological Exam Neurological exam: Present: alert, oriented X3 - Psychiatric Psychiatric exam: Present: normal affect, normal mood - Skin Skin exam: Present: normal color, dry
[2017-02-04] MEDS: cloNIDine 0.1 MG TABLET PO PRN (17:33)
--- NOTE | 2017-02-04 17:35 | Anesthesia Post-Op ---
Anesthesia Post OP - Post Ansesthetic Evaluation Patient seen in post op: Yes Resp: within normal limits CV: within normal limits Mental: within normal limits Temp: within normal limits [id number]: within normal limits Nausea and Vomiting: within normal limits Pain: within normal limits
[2017-02-04 19:32] LABS: Hematocrit 27.8 VOL% (35.7-47.0)
[2017-02-04 19:35] LABS: Hemoglobin 9.6 GM/DL (12.0-16.0)
--- NOTE | 2017-02-04 19:42 | Nephrology Progress Note ---
Nephrology - PN: Subj Interval history: Patient is resting. She did have low-grade temperature today. Hematocrit is still trending down. No active signs of bleeding. Tolerated dialysis on yesterday. Plan for dialysis tomorrow. Will transfuse 2 units packed red blood cells on dialysis tomorrow. Blood cultures are pending. 02/04/2017. The patient had an temp of a dialysis catheter placed today however she has several areas of stenosis and could not be placed. At this time interventional radiology has been consulted and making further preparations for a fistulogram and possible preserve the fistula that is in place. If not, a lumbar catheter or transhepatic catheter will be placed. Exam (PN)-Nephrology - Vital Signs Vital signs: Period Temp Pulse Resp BP Sys/Vera Pulse Ox Last 24 Hr 98.3 F-102.9 F 68-115 16-21 122-195/63-99 96-100 - General Appearance General appearance: well-developed EENT: ATNC Neck: supple Respiratory: clear Cardiology: edema, regular rate, regular rhythm Gastrointestinal: normoactive bowel sounds, no tenderness Neurologic: alert and oriented x3 Psychiatric: mood/affect appropriate, cooperative - Lab 02/04/17 18:30 02/03/17 05:31 Most recent lab results Calcium 9.4 MG/DL (8.5-10.1) 02/03/17 05:31 Phosphorus 7.8 MG/DL (2.5-4.9) H 02/04/17 05:41 Magnesium 1.9 MG/DL (1.8-2.4) 02/04/17 05:41 Assessment and Plan (1) ESRD on hemodialysis Problem details: does not need dialylsis today Status: Chronic Current Visit : No (2) Anemia Status: Acute Current Visit: Yes Qualifiers: Anemia type: other cause Other causes of anemia: acute posthemorrhagic Qualified Code(s): D62 - Acute posthemorrhagic anemia (3) Bleeding Status: Acute Current Visit: Yes
[2017-02-04] MEDS: OLANZapine 5 MG TABLET PO SCH (20:08)
[2017-02-04] MEDS: ATORVASTATIN 40 MG TABLET PO SCH (20:08)
--- NOTE | 2017-02-04 20:44 | Order Completion Report ---
See report scanned to EMR
[2017-02-05] MEDS: ACETAMINOPHEN 325 MG TABLET PO PRN (01:32)
[2017-02-05] MEDS: LEVALBUTEROL 1.25 MG/3 ML NEB RESP TX SCH ×6 (03:35→23:56)
[2017-02-05] MEDS: PANTOPRAZOLE 40 MG TABLET PO SCH (08:16)
[2017-02-05] MEDS: ASPIRIN 325 MG TABLET PO SCH (08:16)
[2017-02-05] MEDS: SERTRALINE 50 MG TABLET PO SCH (08:17)
[2017-02-05] MEDS: INSULIN LISPRO 100 UNIT/ML SUBCUT SCH ×4 (10:10→21:07)
[2017-02-05] MEDS: FLUTICASONE 50 MCG NASAL SPRAY 16 GM BOTTLE BOTH NARES SCH ×2 (10:10→20:31)
--- NOTE | 2017-02-05 10:46 | Hospitalist Progress Note ---
<Lu Tomlinsonda - Last Filed: 02/05/17 10:39> Assessment and Plan (1) Anemia Status: Acute Assessment and plan: Hemoglobin and hematocrit noted at 5.8/17.6. The patient is scheduled for hemodialysis this a.m. Nephrology to manage. 02/03-hemoglobin hematocrit noted at 6.0/18.1. The patient was transfused during hemodialysis on yesterday and her hemoglobin and hematocrit level improved to 7.4/22.0. No obvious signs of bleeding noted. We will type and screen and transfuse 2 additional units of PRBCs today if okay with nephrology. 02/04-blood transfusion placed on hold on yesterday. Hemoglobin and hematocrit noted 5.8/17.2 today. The patient will be transfused during the hemodialysis treatment today per nephrology order. 02/05-blood counts improved; hemoglobin hematocrit noted at 9.6 27.8. Awaiting fistulogram this a.m. Current Visit: Yes Qualifiers: Anemia type: other cause Other causes of anemia: acute posthemorrhagic Qualified Code(s): D62 - Acute posthemorrhagic anemia (2) Hyperkalemia Status: Acute Assessment and plan: Potassium noted at 3.8 today. We agree with nephrology's plan for hemodialysis today. Current Visit: Yes (3) ESRD on hemodialysis Problem details: does not need dialylsis today Status: Chronic Assessment and plan: Nephrology to manage. 02/04-noted bloody drainage from left upper extremity AV fistula. General surgery has been consulted to evaluate for Vas-Cath placement. We appreciate the input. We will await further directions. 02/05-multiple unsuccessful attempts to establish Vas-Cath placement on yesterday. Fistulogram this a.m. to evaluate left AV fistula function. We will await fistulogram results for further direction. Current Visit: No Hospitalist: Subjective Interval history: Patient seen and examined; chart reviewed. No significant overnight events reported per staff. Vascular catheter placement unsuccessful on yesterday after multiple attempts. Fistulogram scheduled today to assess left AV fistula function. Exam - Constitutional Vitals: Period Temp Pulse Resp BP Sys/Vera Pulse Ox Last 24 Hr 97.4 F-101.3 F 60-95 16-21 123-195/71-96 95-100 General appearance: normal weight, no acute distress - Head Head exam: Present: normal inspection, normocephalic, atraumatic - Eye Eye exam: Present: EOMI, conjunctival injection Pupils: Present: NEEL, normal accommodation - ENT ENT exam: Present: normal exam, normal external ear exam, normal oropharynx - Neck Neck exam: Present: normal inspection. Absent: lymphadenopathy, meningismus, tenderness, thyromegaly - Respiratory Respiratory exam: Present: decreased breath sounds. Absent: rales, rhonchi, stridor, wheezes - Cardiovascular Cardiovascular exam: Present: regular rate and rhythm. Absent: carotid bruit, diastolic murmur, gallop, JVD, rubs, systolic murmur - GI/Abdominal GI/Abdominal exam: Present: normal bowel sounds, soft - Extremities Exam Extremities exam: Present: normal inspection, normal capillary refill, full ROM , edema (+2 edema noted to left upper extremity), other - Expanded Left Upper Extremity General: Present: normal inspection Shoulder exam: Present: normal inspection, full ROM Upper Arm exam: Present: full ROM, tenderness Elbow exam: Present: normal inspection, full ROM Forearm wrist exam: Present: normal inspection, full ROM Hand wrist exam: Present: normal inspection, full ROM Neuro motor exam: Present: fingers 2-5 abduction intact, thumb adduction intact , thumb IP flexion intact, thumb opposition intact, wrist extension intact Neurosensory exam: Present: 2-point discrimination, median nerve intact, radial nerve intact, ulnar nerve intact Vascular: Present: brachial pulse, normal capillary refill, radial pulse, ulnar pulse - Back Exam Back exam: Present: normal inspection - Neurological Exam Neurological exam: Present: alert, oriented X3, CN II-XII intact - Psychiatric Psychiatric exam: Present: flat affect - Skin Skin exam: Present: normal color, warm, dry Results - Labs CBC & BMP: 02/04/17 18:30 02/03/17 05:31 Lab Results: I have reviewed the past 24 hour labs Quality Measures - VTE Contraindication to Pharmacological VTE Prophylaxis: Already on Theraputic Agent , No Prophylaxis Needed <Jarred Phillips - Last Filed: 02/05/17 14:54> Hospitalist: Subjective Interval history: I have seen and examined the patient. I have reviewed the chart. I agree with the assessment and plans as per nurse practitioner Anna Tomlinson. Exam - Constitutional Vitals: Period Temp Pulse Resp BP Sys/Vera Pulse Ox Last 24 Hr 97.4 F-101.3 F 60-87 14-20 136-214/75-112 95-100 Results - Labs CBC & BMP: 02/04/17 18:30 02/03/17 05:31
[2017-02-05] MEDS: cloNIDine 0.1 MG TABLET PO PRN (14:25)
[2017-02-05] MEDS ORDERED: VANCOMYCIN INJ 750 MG in SODIUM CHLORIDE 0.9% 250 ML IV PRN (14:38)
--- NOTE | 2017-02-05 14:52 | Post Interventional Procedure ---
Pre-op diagnosis: left arm AVF with aneurysms and excessive bleeding Post-op diagnosis: same Procedure: fistulagram with endovascular stent graft repair of the large aneurysmal segment of the AVF Contrast: 120 mL Omni 300 Flouroscopy: 19.9 min Radiologist: Mika Boone Anesthesia: local Specimens: none sent Estimated blood loss: minimal (50 mL) Complications: none Condition: stable Description/Findings: see formal dictation Assessment and Plan - Time spent with patient Time spent with patient: Greater than 30 minutes (1) Hemorrhage of arteriovenous fistula Problem details: likely due to central venous stenosis Status: Acute Assessment and plan: will attempt central vein recannilzation tomorrow or place TDC if unsuccessful Current Visit: Yes (2) ESRD on hemodialysis Problem details: does not need dialylsis today Status: Chronic Assessment and plan: plan for dialysis tomorrow when access issues are resolved Current Visit: No
--- NOTE | 2017-02-05 14:52 | Nephrology Progress Note ---
Nephrology - PN: Subj Interval history: Patient is seen on hemodialysis, she is tolerating this well. I spoke to Dr. Boone who did her vascular intervention today. He placed a stent throughout the aneurysmal changes in her AV shunt. The location of the stent is indicated by the X keenan on the overlying skin. Dr. Boone asked that we try and avoid sticking this area for 7-10 days if possible to allow the stent to heal in place. This stent material is stickable for AV access eventually however the longer we can give it to rest the better. Perhaps the patient could go without dialysis till Thursday and we could retry sticking her access outside of the X marked areas, if unsuccessful perhaps radiology could place him access under ultrasound guidance if the patient is still in the hospital. If the patient is discharged prior to then and we are unable to access the AV shunt outside of the X marked area we could try and stick the stent area at that time. Exam (PN)-Nephrology - Vital Signs Vital signs: Period Temp Pulse Resp BP Sys/Vera Pulse Ox Last 24 Hr 97.4 F-101.3 F 60-87 14-20 136-214/75-112 95-100 - Lab 02/04/17 18:30 02/03/17 05:31 Most recent lab results Calcium 9.4 MG/DL (8.5-10.1) 02/03/17 05:31 Phosphorus 7.8 MG/DL (2.5-4.9) H 02/04/17 05:41 Magnesium 1.9 MG/DL (1.8-2.4) 02/04/17 05:41
--- NOTE | 2017-02-05 15:36 | Interventional Radiology Rpt ---
IR Dialysis Angio w Stent IR Fistulagram Clinical Information: 51-year-old female with end-stage renal disease and dialysis via a left arm fistula. Left arm fistula demonstrates 2 large areas of aneurysmal dilatation with excoriation excessive bleeding. Previous attempts at catheter placement with ligation of the filter had failed. Physician(s): Dr. Boone Procedure: The patient was advised of the benefits, risks, and alternatives of the procedure and informed consent was obtained. A time out was performed with verification of the patient's name, MRN, site of procedure, and type of procedure to be performed. The patient was positioned in the supine position on the angiographic table. The site was prepped and draped in the usual sterile fashion. Local anesthesia only was used for the procedure. A manager union radiograph reveals no relevant abnormality. Lidocaine was injected for local anesthesia. The left arm fistula was accessed with a microintroducer kit and a 4 Fr sheath was placed. A fistulagram demonstrates large aneurysmal segment within the arm with active extravasation to the skin at the area of superficial excoriation. Central venography demonstrates patent, normal caliber central veins without filling defects. Reflux angiogram demonstrates a patent, non-stenotic arterial anastomosis. A Glidewire was passed into the central venous circulation and a 6 Fr short sheath was placed. Measurements were obtained and 10 mm endovascular stent graft placement was chosen to exclude the aneurysmal segment. 3 separate 10 mm fluency stents were placed in a distal proximally overlapping fashion. However, when angioplasty was performed of the proximal extent, the graft did not seat and there was brisk bleeding from the vascular injury. The stent graft was then extended with a 9 mm x 6 cm fluency stent graft. At this point, there was minimal continued filling of the aneurysmal sac with marked decrease in bleeding. A 10 minute delayed image demonstrates no further bleeding/extravasation. All catheters, wires and sheaths were removed. Pressure was held at the puncture site for 10 minutes to obtain hemostasis. The patient tolerated the procedure well and was transferred to the post procedure observation area in stable condition. EBL: <5 ml Complications: None. Fluoroscopy time: 19.9 minutes. Total number of images for this study: 235 Conclusion: 1. Fistulogram demonstrates large aneurysmal segment with areas of active extravasation. 2. Successful endovascular stent graft exclusion of the aneurysmal segment within the arm. Widely patent central venous drainage from the fistula. PROCEDURE INTERPRETED AT [facility] DEPARTMENT OF RADIOLOGY Final Report Signed by: Mika Boone
--- NOTE | 2017-02-05 17:05 | Infectious Disease Consult ---
Assessment and Plan (1) MRSA (methicillin resistant Staphylococcus aureus) septicemia Status: Acute Assessment and plan: Patient predisposed to this infection being a dialysis patient. Further she was recently in hospital after a stroke. We need to make sure there is no complications from this infection, particularly endocarditis. Recommendations: 1. Agree with vancomycin therapy. Goal trough level ~20 2. Echocardiogram to look for endocarditis 3. Repeat blood cultures tomorrow 4. Patient will need aggressive intravenous antibiotic therapy for at least 4 weeks from date of negative blood cultures, longer if the echocardiogram is positive for endocarditis. Following completion of IV antibiotic therapy, because she has catheters in the left of her dialysis which had to be placed while she was still bacteremic, will probably need prolonged suppression with oral antibiotic. Thank you very much for the consult. Will follow. 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 Patient developed quite significant anemia and had blood transfusion. Continue to monitor. Current Visit: Yes (3) Hypertension Status: Acute Current Visit: No (4) ESRD on hemodialysis Problem details: does not need dialylsis today Status: Chronic Current Visit : No History of Present Illness Chief complaint: Positive blood cultures History of present illness: Ms. Jiménez is a 51 year old female with multiple comorbid including end-stage renal disease on hemodialysis for more than 10 years. Patient was recently hospital a few weeks ago after she had a massive stroke which left her with left -sided paralysis. Since then she has been in a assisted. Apparently over the weekend she bumped her left arm on a food tray, this is where she has her AV fistula. After the trauma he sustained profuse bleeding and had to be brought to the hospital. She is admitted 5 days ago. The bleeding was so profuse that she had to have emergency surgery in the emergency room on the fistula. Since being in hospital attempts were made to place hemodialysis catheters however she has had occlusions in all the potential access sites and so this had to be aborted. She had fever 2 days ago and blood cultures were done and today there, positive MRSA so I am asked to assist with management. However he missed dialysis yesterday the patient had interventional radiology place catheters in her fistula today to enable her dialysis. She did not have any specific complaints and I spoke to her today. Home Medications Medication Instructions Recorded Confirmed Type Acetaminophen Tab [Tylenol Tab] 650 mg PO Q4H PRN 01/16/17 01/31/17 History Aspirin 325 mg PO DAILY 01/16/17 01/31/17 History Atorvastatin Calcium 40 mg PO BEDTIME 01/16/17 01/31/17 History Epoetin Bony [Procrit] 10,000 unit SUBCUT PRN PRN 01/16/17 01/31/17 History Fluticasone Propionate [Flonase 1 spray BOTH NARES BID 01/16/17 01/31/17 History Allergy Relief] HYDROcodone/ACETAMIN 5-325 [[place] 1 tablet PO Q4H PRN 01/16/17 01/31/17 History 5-325] Heparin Sodium,Porcine [Heparin 10 ml IV PRN PRN 01/16/17 01/31/17 History Sodium] Mag Hydrox/Aluminum Hyd/Simeth 30 ml PO Q6HR PRN 01/16/17 01/31/17 History [Maalox Maximum Strength Susp] Magnesium Hydroxide Susp [Milk of 45 ml PO PRN PRN 01/16/17 01/31/17 History Magnesia] OLANZapine [Olanzapine] 5 mg PO BEDTIME 01/16/17 01/31/17 History Sertraline HCl 50 mg PO DAILY 01/16/17 01/31/17 History Apixaban [Eliquis] 2.5 mg PO BID tablet 01/29/17 01/31/17 Rx hydrALAZINE TAB [Apresoline Tab] 75 mg PO BID tablet 01/29/17 01/31/17 Rx Allergies Allergy/AdvReac Type Severity Reaction Status Date / Time No Known Allergies Allergy Verified 01/16/17 11:43 12 point system: reviewed and no additional remarkable complaints except as stated (Per HPI) Medical,Surgical,& Family Hx - Medical History Cardio: History of: Hypertension Neurology: History of: Cerebrovascular Accident No history of: Seizures HEENT: History of: Eye Problem (cataracts bilaterally) Endocrine: History of: Dyslipidemia Respiratory: History of: Bronchitis, Pneumonia Renal: History of: Renal Failure (Left upper graft, on Dialysis since 2002, goes --, followed by Dr. Caputo) Genitourinary: History of: Recurring Urinary Tract Infections Gastrointestinal: History of: GERD, Hemorrhoids, Hepatitis (Hepatitis C from blood transfusion) Musculoskeletal: History of: Musculoskeletal Problems (Left sided paralysis r/t stroke) Hematology: History of: Anemia (Previous blood transfusion) No history of: Blood Transfusion Reaction Reproductive: History of: Sexually Transmitted Disorders (Trichomoniasis) Other: No history of: Anesthesia Reactions - Surgical History Abdominal Surgeries: Surgical HX of: Abdominal Surgery (Peg tube placement and removal), EGD Reproductive Surgeries: Surgical HX of;: Section, Hysterectomy - Family History Family History: Reports;: Family Hypertension, Family Stroke (father) Denies;: Family Anesthesia Reaction, Family Cancer, Family Diabetes, Family Psychiatric Problems - Social History Smoking Status: Former smoker Frequency of Alcohol Use: None Type of Drug Use: None Infectious Disease Exam H&P - Constitutional Vitals: Vital Signs Temp Pulse Resp BP Pulse Ox 97.4 F L 69 20 199/103 93 L 02/05/17 07:50 02/05/17 14:40 02/05/17 14:40 02/05/17 13:57 02/05/17 14:40 Intake and Output 02/05/17 02/05/17 02/05/17 07:59 15:59 23:59 Intake Total 620 / 620 Balance 620 / 620 Intake: IV 500 / 500 Vancomycin Inj 5,000 mg 500 / 500 In Ns 500 ml @ 166.667 mls/hr IV ONCE ONE Rx#: [id number] Oral 120 / 120 Other: # Voids 0 Exam: General: Patient relatively comfortable on dialysis, but chronically ill looking HEENT: Mucous membranes pink and moist, anicteric acyanotic, NEEL, no oral exudates Neck: Supple, no thyroid gland enlargement Respiratory system: Breath sounds vesicular, no crepitations or wheezes Cardiovascular: Normal S1 and S2, no murmurs appreciated Abdomen: Normal bowel sounds, soft nontender throughout, no organomegaly or mass Genitourinary: No suprapubic pain or bladder distention, clear urine from Soto catheter Extremities: Severe edema to left upper extremity, dialysis catheters going into the left arm superiorly and inferiorly, there does not appear to be any induration or erythema to that left arm Skin: No rash Reports - Labs CBC & BMP: 02/04/17 18:30 02/03/17 05:31 Labs: Laboratory Results - last 24 hr 02/04/17 02/04/17 02/04/17 17:36 18:30 19:26 Hgb 9.6 L D Hct 27.8 L POC Glucose 318 H 138 H 02/05/17 02/05/17 07:13 10:56 Hgb Hct POC Glucose 146 H 105 - Reports Microbiology: Microbiology 02/03/17 16:43 Blood Culture - Preliminary Blood Gram Positive Cocci 02/04/17 Unknown MRSA (PCR) - Final Blood Mrsa Positive Staph aureus Positive 02/04/17 Unknown MRSA (PCR) - Final Blood Mrsa Positive Staph aureus Positive - Diagnostic Findings Procedure: Chest x-ray: report reviewed by me
[2017-02-05] MEDS: OLANZapine 5 MG TABLET PO SCH (20:31)
[2017-02-05] MEDS: ATORVASTATIN 40 MG TABLET PO SCH (20:31)
[2017-02-05] MEDS ORDERED: VANCOMYCIN INJ 750 MG in SODIUM CHLORIDE 0.9% 250 ML IV ONE (21:30)
[2017-02-06] MEDS: LEVALBUTEROL 1.25 MG/3 ML NEB RESP TX SCH ×6 (03:16→23:30)
--- NOTE | 2017-02-06 08:01 | Event Note ---
Patient seen and examined. She underwent intervention by interventional radiology for her left AV fistula yesterday. Bilateral neck and groin without swelling or bleeding. No obvious hematoma. Left arm fistula has good thrill with no obvious bleeding. I have recommended the patient follow-up with her access surgeon in [place] upon discharge to keep a close eye on the left AV access. If she requires catheter placement would recommend consulting interventional radiology she will need something more complex than typically done in the operating room. She failed bilateral IJ and femoral vein attempts at catheterization.
[2017-02-06] MEDS: ASPIRIN 325 MG TABLET PO SCH (08:22)
[2017-02-06] MEDS: INSULIN LISPRO 100 UNIT/ML SUBCUT SCH ×5 (08:22→23:19)
[2017-02-06] MEDS: SERTRALINE 50 MG TABLET PO SCH (08:22)
[2017-02-06] MEDS: PANTOPRAZOLE 40 MG TABLET PO SCH (08:22)
[2017-02-06] MEDS: FLUTICASONE 50 MCG NASAL SPRAY 16 GM BOTTLE BOTH NARES SCH ×2 (08:22→23:19)
[2017-02-06] MEDS ORDERED: VANCOMYCIN INJ 750 MG in SODIUM CHLORIDE 0.9% 250 ML IV PRN (09:00)
--- NOTE | 2017-02-06 11:05 | Hospitalist Progress Note ---
<Anna Tomlinson - Last Filed: 02/06/17 11:03> Assessment and Plan (1) Anemia Status: Acute Assessment and plan: Hemoglobin and hematocrit noted at 5.8/17.6. The patient is scheduled for hemodialysis this a.m. Nephrology to manage. 02/03-hemoglobin hematocrit noted at 6.0/18.1. The patient was transfused during hemodialysis on yesterday and her hemoglobin and hematocrit level improved to 7.4/22.0. No obvious signs of bleeding noted. We will type and screen and transfuse 2 additional units of PRBCs today if okay with nephrology. 02/04-blood transfusion placed on hold on yesterday. Hemoglobin and hematocrit noted 5.8/17.2 today. The patient will be transfused during the hemodialysis treatment today per nephrology order. 02/05-blood counts improved; hemoglobin hematocrit noted at 9.6 27.8. Awaiting fistulogram this a.m. 10/-hemoglobin and hematocrit remained stable and are noted at 9.6/27.8. No obvious or overt bleeding noted. We will monitor closely. Current Visit: Yes Qualifiers: Anemia type: other cause Other causes of anemia: acute posthemorrhagic Qualified Code(s): D62 - Acute posthemorrhagic anemia (2) Hyperkalemia Status: Acute Assessment and plan: Potassium noted at 3.8 today. We agree with nephrology's plan for hemodialysis today. Current Visit: Yes (3) ESRD on hemodialysis Problem details: does not need dialylsis today Status: Chronic Assessment and plan: Nephrology to manage. 02/04-noted bloody drainage from left upper extremity AV fistula. General surgery has been consulted to evaluate for Vas-Cath placement. We appreciate the input. We will await further directions. 02/05-multiple unsuccessful attempts to establish Vas-Cath placement on yesterday. Fistulogram this a.m. to evaluate left AV fistula function. We will await fistulogram results for further direction. 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 We appreciate the input. Nephrology to resume hemodialysis when indicated. Current Visit: No (4) MRSA bacteremia Status: Acute Assessment and plan: Contact precautions remain in order. Blood cultures positive for MRSA bacteremia. Infectious disease has been consulted and recommendations have been given. We appreciate the input. We will continue vancomycin per infectious disease order. Current Visit: Yes Exam - Constitutional Vitals: Period Temp Pulse Resp BP Sys/Vera Pulse Ox Last 24 Hr 98.4 F-100.1 F 63-92 14-20 150-214/64-112 92-100 General appearance: normal weight, no acute distress - Head Head exam: Present: normal inspection, normocephalic, atraumatic - Eye Eye exam: Present: EOMI. Absent: conjunctival injection Pupils: Present: NEEL, normal accommodation - ENT ENT exam: Present: normal exam, normal external ear exam, normal oropharynx - Neck Neck exam: Present: normal inspection. Absent: lymphadenopathy, meningismus, tenderness, thyromegaly - Respiratory Respiratory exam: Present: clear to auscultation bilaterally. Absent: rales, rhonchi, stridor, wheezes - Cardiovascular Cardiovascular exam: Present: JVD, regular rate and rhythm. Absent: carotid bruit, diastolic murmur, gallop, systolic murmur, tachycardia - GI/Abdominal GI/Abdominal exam: Present: normal bowel sounds, soft - Extremities Exam Extremities exam: Present: normal inspection, other (Left upper extremity AV fistula positive bruit positive thrill noted) - Expanded Left Upper Extremity General: Present: normal inspection Shoulder exam: Present: normal inspection Upper Arm exam: Present: normal inspection Elbow exam: Present: normal inspection Forearm wrist exam: Present: normal inspection Hand wrist exam: Present: normal inspection Neurosensory exam: Present: 2-point discrimination, median nerve intact, radial nerve intact, ulnar nerve intact Vascular: Present: normal capillary refill, radial pulse, ulnar pulse - Back Exam Back exam: Present: normal inspection - Neurological Exam Neurological exam: Present: alert, oriented X3, CN II-XII intact - Psychiatric Psychiatric exam: Present: flat affect - Skin Skin exam: Present: normal color, warm, dry Results - Labs CBC & BMP: 02/04/17 18:30 02/03/17 05:31 Lab Results: I have reviewed the past 24 hour labs Quality Measures - VTE Contraindication to Pharmacological VTE Prophylaxis: Already on Theraputic Agent , No Prophylaxis Needed <Jarred Phillips - Last Filed: 02/06/17 12:29> Hospitalist: Subjective Interval history: I have seen and examined the patient. I reviewed all available laboratory and radiographic test results. I agree with the assessment and plans as per nurse practitioner Anna Tomlinson. Exam - Constitutional Vitals: Period Temp Pulse Resp BP Sys/Vera Pulse Ox Last 24 Hr 98.4 F-100.1 F 63-96 14-20 150-214/64-108 92-100 Results - Labs CBC & BMP: 02/04/17 18:30 02/03/17 05:31
--- NOTE | 2017-02-06 11:23 | Infectious Disease Progress ---
Assessment and Plan (1) MRSA (methicillin resistant Staphylococcus aureus) septicemia Status: Acute Assessment and plan: Patient clinically seems to be doing okay. Recommendations: 1. Continue vancomycin therapy. Goal trough level ~20 2. Follow-up results of echocardiogram 3. Repeat blood cultures today 4. Patient will need aggressive intravenous antibiotic therapy for at least 4 weeks from date of negative blood cultures, longer if the echocardiogram is positive for endocarditis. Following completion of IV antibiotic therapy, because she has catheters in the left of her dialysis which had to be placed while she was still bacteremic, will probably need prolonged suppression with oral antibiotic. 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 Patient developed quite significant anemia and had blood transfusion. Continue to monitor. Current Visit: Yes (3) Hypertension Status: Acute Current Visit: No (4) ESRD on hemodialysis Problem details: does not need dialylsis today Status: Chronic Current Visit : No Infectious Disease - PN: Subj Interval history: Low-grade temperature spike to 100.9 last night, but patient feels very well. No chills, no significant pain to left upper extremity, no nausea vomiting or diarrhea, good appetite. Infectious Disease Exam (PN) - Constitutional Vitals: Temp Pulse Resp BP Pulse Ox 98.4 F 83 20 150/64 97 02/06/17 08:20 02/06/17 08:20 02/06/17 08:20 02/06/17 08:20 02/06/17 08:20 General appearance: normal weight, no acute distress Exam: General appearance: no acute distress, much more alert and interactive today - Eye Eye exam: Present: EOMI. no icterus Pupils: Present: NEEL - ENT ENT exam: no oral exudates - Respiratory Respiratory exam: vesicular BS, no crepitations or wheezes - Cardiovascular Cardiovascular exam: regular rate and rhythm, no murmurs - GI/Abdominal GI/Abdominal exam: normal bowel sounds, soft, non-tender, no organomegaly or mass - Extremities Exam Extremities exam: Severe edema to left upper extremity, bandage over fistula, no induration - Skin Skin exam: no rash Results - Labs CBC & BMP: 02/04/17 18:30 02/03/17 05:31 Lab Results: I have reviewed the past 24 hour labs Quality Measures - VTE Contraindication to Pharmacological VTE Prophylaxis: Already on Theraputic Agent , No Prophylaxis Needed
[2017-02-06] MEDS ORDERED: MAGNESIUM HYDROXIDE SUSP 30 ML UDCUP PO PRN (14:44)
--- NOTE | 2017-02-06 15:30 | Nephrology Progress Note ---
Nephrology - PN: Subj Interval history: Ms Lindquist denies SOB/pain. She is undergoing bedside echocardiogram to rule out endocarditis as she has bacteremia with MRSA on blood cultures last two days. She had endovascular stent placed in [facility] while bacteremic. Multiple attempts at catheter placement were unsuccessful. She had dialysis yesterday for 4.5hrs via the stented fistula s apparent complications. Exam (PN)-Nephrology - Vital Signs Vital signs: Period Temp Pulse Resp BP Sys/Vera Pulse Ox Last 24 Hr 98.4 F-100.1 F 63-96 16-20 150-179/64-84 91-99 - General Appearance General appearance: well-developed, chronically ill EENT: ATNC, PERRL, mucous membranes moist, hearing intact, vision intact Neck: no JVD, no thyromegaly Respiratory: no kyphosis, clear Cardiology: no murmurs, no rub, edema (right arm hematoma, BLE with only trace edema) Gastrointestinal: normoactive bowel sounds, no tenderness Integumentary: no rash, warm and dry Neurologic: no asterixis, hemiplegic (left sided hemiparesis since stroke last month) Musculoskeletal: no deformities, no erythema Psychiatric: mood/affect appropriate, cooperative - Lab 02/04/17 18:30 02/03/17 05:31 Most recent lab results Calcium 9.4 MG/DL (8.5-10.1) 02/03/17 05:31 Phosphorus 7.8 MG/DL (2.5-4.9) H 02/04/17 05:41 Magnesium 1.9 MG/DL (1.8-2.4) 02/04/17 05:41 Assessment and Plan (1) ESRD on hemodialysis Problem details: No acute indication for HD today. Status: Chronic Assessment and plan: Rest fistula over the weekend. Resume next week as indicated. EDW 94 kg. 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
--- NOTE | 2017-02-06 20:02 | Order Completion Report ---
See report scanned to EMR
[2017-02-06] MEDS: ATORVASTATIN 40 MG TABLET PO SCH (20:57)
[2017-02-06] MEDS: OLANZapine 5 MG TABLET PO SCH (20:57)
[2017-02-07] MEDS: LEVALBUTEROL 1.25 MG/3 ML NEB RESP TX SCH ×6 (03:19→23:46)
[2017-02-07] MEDS: INSULIN LISPRO 100 UNIT/ML SUBCUT SCH ×4 (07:47→20:35)
[2017-02-07] MEDS: SERTRALINE 50 MG TABLET PO SCH (08:11)
[2017-02-07] MEDS: PANTOPRAZOLE 40 MG TABLET PO SCH (08:11)
[2017-02-07] MEDS: cloNIDine 0.1 MG TABLET PO PRN (08:11)
[2017-02-07] MEDS: ASPIRIN 325 MG TABLET PO SCH (08:12)
[2017-02-07] MEDS: FLUTICASONE 50 MCG NASAL SPRAY 16 GM BOTTLE BOTH NARES SCH ×2 (08:12→20:35)
--- NOTE | 2017-02-07 10:03 | Hospitalist Progress Note ---
<Anna Tomlinson - Last Filed: 02/07/17 09:58> Assessment and Plan (1) Anemia Status: Acute Assessment and plan: Hemoglobin and hematocrit noted at 5.8/17.6. The patient is scheduled for hemodialysis this a.m. Nephrology to manage. 02/03-hemoglobin hematocrit noted at 6.0/18.1. The patient was transfused during hemodialysis on yesterday and her hemoglobin and hematocrit level improved to 7.4/22.0. No obvious signs of bleeding noted. We will type and screen and transfuse 2 additional units of PRBCs today if okay with nephrology. 02/04-blood transfusion placed on hold on yesterday. Hemoglobin and hematocrit noted 5.8/17.2 today. The patient will be transfused during the hemodialysis treatment today per nephrology order. 02/05-blood counts improved; hemoglobin hematocrit noted at 9.6 27.8. Awaiting fistulogram this a.m. 02/06-hemoglobin and hematocrit remained stable and are noted at 9.6/27.8. No obvious or overt bleeding noted. We will monitor closely. Current Visit: Yes Qualifiers: Anemia type: other cause Other causes of anemia: acute posthemorrhagic Qualified Code(s): D62 - Acute posthemorrhagic anemia (2) Hyperkalemia Status: Acute Assessment and plan: Potassium noted at 3.8 today. We agree with nephrology's plan for hemodialysis today. Current Visit: Yes (3) ESRD on hemodialysis Problem details: No acute indication for HD today. Status: Chronic Assessment and plan: Nephrology to manage. 02/04-noted bloody drainage from left upper extremity AV fistula. General surgery has been consulted to evaluate for Vas-Cath placement. We appreciate the input. We will await further directions. 02/05-multiple unsuccessful attempts to establish Vas-Cath placement on yesterday. Fistulogram this a.m. to evaluate left AV fistula function. We will await fistulogram results for further direction. 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 We appreciate the input. Nephrology to resume hemodialysis when indicated. 02/07-nephrology to manage hemodialysis Current Visit: No (4) MRSA bacteremia Status: Acute Assessment and plan: Contact precautions remain in order. Blood cultures positive for MRSA bacteremia. Infectious disease has been consulted and recommendations have been given. We appreciate the input. We will continue vancomycin per infectious disease order. Current Visit: Yes Hospitalist: Subjective Interval history: Patient seen and examined; chart reviewed. No significant overnight events reported per staff. Exam - Constitutional Vitals: Period Temp Pulse Resp BP Sys/Vera Pulse Ox Last 24 Hr 97.9 F-99.3 F 64-100 16-20 148-190/82-90 91-99 General appearance: normal weight, no acute distress - Head Head exam: Present: normal inspection, normocephalic, atraumatic - Eye Eye exam: Present: EOMI. Absent: conjunctival injection Pupils: Present: NEEL, normal accommodation - ENT ENT exam: Present: normal exam, normal external ear exam, normal oropharynx - Neck Neck exam: Present: normal inspection. Absent: lymphadenopathy, meningismus, thyromegaly - Respiratory Respiratory exam: Present: decreased breath sounds. Absent: rales, rhonchi, stridor, wheezes - Cardiovascular Cardiovascular exam: Present: regular rate and rhythm - GI/Abdominal GI/Abdominal exam: Present: normal bowel sounds, soft - Extremities Exam Extremities exam: Present: normal inspection, normal capillary refill, other ( AV fistula noted to left upper extremity) - Expanded Left Upper Extremity General: Present: normal inspection Shoulder exam: Present: normal inspection Upper Arm exam: Present: normal inspection Elbow exam: Present: normal inspection Forearm wrist exam: Present: normal inspection Hand wrist exam: Present: normal inspection Neurosensory exam: Present: 2-point discrimination, median nerve intact, radial nerve intact, ulnar nerve intact Vascular: Present: brachial pulse, normal capillary refill, radial pulse, ulnar pulse - Back Exam Back exam: Present: normal inspection - Neurological Exam Neurological exam: Present: alert, oriented X3, CN II-XII intact - Psychiatric Psychiatric exam: Present: normal affect, normal mood - Skin Skin exam: Present: normal color, warm, dry Results - Labs CBC & BMP: 02/04/17 18:30 02/03/17 05:31 Lab Results: I have reviewed the past 24 hour labs Quality Measures - VTE Contraindication to Pharmacological VTE Prophylaxis: Already on Theraputic Agent , No Prophylaxis Needed <Jarred Phillips - Last Filed: 02/07/17 11:33> Hospitalist: Subjective Interval history: I have seen and examined the patient. I reviewed all available laboratory and radiographic test results. I agree with the assessment and plans as per Anna Tomlinson CNP. Exam - Constitutional Vitals: Period Temp Pulse Resp BP Sys/Vera Pulse Ox Last 24 Hr 97.9 F-99.3 F 64-100 16-20 148-190/82-90 91-99 Results - Labs CBC & BMP: 02/04/17 18:30 02/03/17 05:31
--- NOTE | 2017-02-07 11:30 | Nephrology Progress Note ---
Nephrology - PN: Subj Interval history: She denies shortness of breath. No bleeding from left arm access Exam (PN)-Nephrology - Vital Signs Vital signs: Period Temp Pulse Resp BP Sys/Vera Pulse Ox Last 24 Hr 97.9 F-99.3 F 64-100 16-20 148-190/82-90 91-99 Exam: Gen.: Alert and oriented x3. ENT: Pupils equal round reactive to light. EOMs intact. Mucous membranes moist. Neck: Supple. No JVD or bruit. Cardiovascular: Regular rate and rhythm. No murmur rub or gallop Lungs: Clear Abdomen: Soft. Nontender. Positive bowel sounds. No organomegaly Extremities: 1+ left upper arm edema - Lab 02/04/17 18:30 02/03/17 05:31 Most recent lab results Calcium 9.4 MG/DL (8.5-10.1) 02/03/17 05:31 Phosphorus 7.8 MG/DL (2.5-4.9) H 02/04/17 05:41 Magnesium 1.9 MG/DL (1.8-2.4) 02/04/17 05:41 Assessment and Plan (1) ESRD on hemodialysis Status: Chronic Assessment and plan: 51-year-old woman with: * ESRD. * Bleeding dialysis access. No further bleeding today. * Hyperkalemia. Resolved * Bacteremia. 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
[2017-02-07] MEDS: ACETAMINOPHEN 325 MG TABLET PO PRN (17:37)
[2017-02-07] MEDS: ATORVASTATIN 40 MG TABLET PO SCH (20:35)
[2017-02-07] MEDS: OLANZapine 5 MG TABLET PO SCH (20:35)
[2017-02-08] MEDS: LEVALBUTEROL 1.25 MG/3 ML NEB RESP TX SCH ×5 (02:59→19:34)
[2017-02-08 05:26] LABS: Basophils % 0.7 % (0.0-0.8); Eosinophils # 0.3 10*3/uL (0.0-0.87); Eosinophils % 8.8 % (0.00-10.9); Hematocrit 21.8 VOL% (35.7-47.0); Hemoglobin 7.3 GM/DL (12.0-16.0); Immature Granulocytes % 0.3 %; Immature Granulocytes Absolute 0.01 #; Lymphocytes # 0.7 10*3/uL (1.4-4.0); Mean Corpuscular HGB Conc 33.5 GM/DL (32-36); Mean Corpuscular Hemoglobin 31 PG (27-34); Mean Corpuscular Volume 92.4 FL (87-102); Mean Platelet Volume 8.9 FL (9.6-12.0); Monocytes # 0.3 10*3/uL (0.11-0.8); Monocytes % 9.8 % (1.7-12.7); Neutrophils # 1.7 10*3/uL (1.4-7.4); Neutrophils % 56.4 % (38.7-73.9); Platelet Count 171 T/CUMM (130-400); Red Blood Count 2.36 MC/CUMM (3.8-5.5); Red Cell Distribution Width 15.4 % (9.3-17.3)
[2017-02-08 05:58] LABS: Microcytosis Slight
[2017-02-08 05:59] LABS: Hypochromasia Slight; Platelet Estimate Adequate
[2017-02-08] MEDS: INSULIN LISPRO 100 UNIT/ML SUBCUT SCH ×4 (07:42→20:56)
[2017-02-08] MEDS: FLUTICASONE 50 MCG NASAL SPRAY 16 GM BOTTLE BOTH NARES SCH ×2 (08:05→20:57)
[2017-02-08] MEDS: ASPIRIN 325 MG TABLET PO SCH (08:05)
[2017-02-08] MEDS: PANTOPRAZOLE 40 MG TABLET PO SCH (08:07)
[2017-02-08] MEDS: SERTRALINE 50 MG TABLET PO SCH (08:07)
[2017-02-08] MEDS ORDERED: diphenhydrAMINE 50 MG/1 ML VIAL IV ONE (10:50)
[2017-02-08] MEDS ORDERED: SODIUM CHLORIDE 0.9% 250 ML IV PRN (10:50)
[2017-02-08] MEDS ORDERED: methylPREDNISolone SOD SUC 40 MG/1 ML VIAL IV ONE (10:51)
[2017-02-08] MEDS ORDERED: ACETAMINOPHEN 325 MG TABLET PO ONE (10:51)
--- NOTE | 2017-02-08 10:55 | Hospitalist Progress Note ---
<Anna Tomlinson - Last Filed: 02/08/17 11:59> Assessment and Plan (1) Anemia Status: Acute Assessment and plan: Hemoglobin and hematocrit noted at 5.8/17.6. The patient is scheduled for hemodialysis this a.m. Nephrology to manage. 02/03-hemoglobin hematocrit noted at 6.0/18.1. The patient was transfused during hemodialysis on yesterday and her hemoglobin and hematocrit level improved to 7.4/22.0. No obvious signs of bleeding noted. We will type and screen and transfuse 2 additional units of PRBCs today if okay with nephrology. 02/04-blood transfusion placed on hold on yesterday. Hemoglobin and hematocrit noted 5.8/17.2 today. The patient will be transfused during the hemodialysis treatment today per nephrology order. 02/05-blood counts improved; hemoglobin hematocrit noted at 9.6 27.8. Awaiting fistulogram this a.m. 02/06-hemoglobin and hematocrit remained stable and are noted at 9.6/27.8. No obvious or overt bleeding noted. We will monitor closely. 02/08-hemoglobin and hematocrit noted at 7.3/21.8; we will transfuse 2 units of packed red blood cells. We will premedicate with Tylenol 650 mg, Solu-Medrol 40 mg IV, and Benadryl 50 mg prior to transfusion. Current Visit: Yes Qualifiers: Anemia type: other cause Other causes of anemia: acute posthemorrhagic Qualified Code(s): D62 - Acute posthemorrhagic anemia (2) Hyperkalemia Status: Acute Assessment and plan: Potassium noted at 3.8 today. We agree with nephrology's plan for hemodialysis today. Current Visit: Yes (3) ESRD on hemodialysis Problem details: No acute indication for HD today. Status: Chronic Assessment and plan: Nephrology to manage. 02/04-noted bloody drainage from left upper extremity AV fistula. General surgery has been consulted to evaluate for Vas-Cath placement. We appreciate the input. We will await further directions. 02/05-multiple unsuccessful attempts to establish Vas-Cath placement on yesterday. Fistulogram this a.m. to evaluate left AV fistula function. We will await fistulogram results for further direction. 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 We appreciate the input. Nephrology to resume hemodialysis when indicated. 02/07-nephrology to manage hemodialysis Current Visit: No (4) MRSA bacteremia Status: Acute Assessment and plan: Contact precautions remain in order. Blood cultures positive for MRSA bacteremia. Infectious disease has been consulted and recommendations have been given. We appreciate the input. We will continue vancomycin per infectious disease order. Current Visit: Yes Hospitalist: Subjective Interval history: Patient seen and examined; chart reviewed. No significant overnight events reported per staff. Hemoglobin and hematocrit noted at 7.3/21.8. We will transfuse 2 units packed red blood cells and recheck CBC in a.m. Exam - Constitutional Vitals: Period Temp Pulse Resp BP Sys/Vera Pulse Ox Last 24 Hr 97.1 F-98.9 F 70-87 16-20 116-187/64-94 95-99 General appearance: normal weight, no acute distress - Head Head exam: Present: normal inspection, normocephalic, atraumatic - Eye Eye exam: Present: EOMI. Absent: conjunctival injection Pupils: Present: NEEL, normal accommodation - ENT ENT exam: Present: normal exam, normal external ear exam, normal oropharynx - Neck Neck exam: Present: normal inspection. Absent: lymphadenopathy, meningismus, tenderness, thyromegaly - Respiratory Respiratory exam: Present: clear to auscultation bilaterally. Absent: rales, rhonchi, stridor, wheezes - Cardiovascular Cardiovascular exam: Present: regular rate and rhythm. Absent: carotid bruit, diastolic murmur, gallop, JVD, rubs, systolic murmur - GI/Abdominal GI/Abdominal exam: Present: normal bowel sounds, soft - Extremities Exam Extremities exam: Present: normal inspection, normal capillary refill, other ( AVF to left upper extremity) - Expanded Left Upper Extremity General: Present: normal inspection Shoulder exam: Present: normal inspection Upper Arm exam: Present: normal inspection Elbow exam: Present: normal inspection Forearm wrist exam: Present: normal inspection Hand wrist exam: Present: normal inspection Neuro motor exam: Present: fingers 2-5 abduction intact, thumb adduction intact , thumb IP flexion intact, thumb opposition intact, wrist extension intact Neurosensory exam: Present: 2-point discrimination, median nerve intact, radial nerve intact, ulnar nerve intact Vascular: Present: brachial pulse, normal capillary refill, radial pulse, ulnar pulse - Back Exam Back exam: Present: normal inspection - Neurological Exam Neurological exam: Present: alert, oriented X3, CN II-XII intact - Psychiatric Psychiatric exam: Present: flat affect - Skin Skin exam: Present: normal color, warm, dry Results - Labs CBC & BMP: 02/08/17 05:10 02/03/17 05:31 Lab Results: I have reviewed the past 24 hour labs Quality Measures - VTE Contraindication to Pharmacological VTE Prophylaxis: Already on Theraputic Agent , No Prophylaxis Needed <Jarred Phillips - Last Filed: 02/09/17 08:04> Hospitalist: Subjective Interval history: I have seen and examined the patient. I reviewed all available laboratory and radiographic test results. I agree with the assessment and plans of Anna HERNANDEZ. Exam - Constitutional Vitals: Period Temp Pulse Resp BP Sys/Vera Pulse Ox Last 24 Hr 97.7 F-98.5 F 70-86 16-20 148-172/79-110 95-100 Results - Labs CBC & BMP: 02/09/17 05:36 02/03/17 05:31
--- NOTE | 2017-02-08 11:30 | Nephrology Progress Note ---
Nephrology - PN: Subj Interval history: No shortness of breath. No uremic symptoms Exam (PN)-Nephrology - Vital Signs Vital signs: Period Temp Pulse Resp BP Sys/Vera Pulse Ox Last 24 Hr 97.1 F-98.9 F 70-87 16-20 116-187/64-94 95-99 Exam: Gen.: Alert and oriented x3. ENT: Pupils equal round reactive to light. EOMs intact. Mucous membranes moist. Neck: Supple. No JVD or bruit. Cardiovascular: Regular rate and rhythm. No murmur rub or gallop Lungs: Clear Abdomen: Soft. Nontender. Positive bowel sounds. No organomegaly Extremities: 1+ left upper arm edema - Lab 02/08/17 05:10 02/03/17 05:31 Most recent lab results Calcium 9.4 MG/DL (8.5-10.1) 02/03/17 05:31 Phosphorus 7.8 MG/DL (2.5-4.9) H 02/04/17 05:41 Magnesium 1.9 MG/DL (1.8-2.4) 02/04/17 05:41 Assessment and Plan (1) ESRD on hemodialysis Status: Chronic Assessment and plan: 51-year-old woman with: * ESRD. * Bleeding dialysis access. No further bleeding. Probable transfusion with dialysis tomorrow * Hyperkalemia. Resolved * Bacteremia. 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
[2017-02-08] MEDS: ATORVASTATIN 40 MG TABLET PO SCH (21:41)
[2017-02-08] MEDS: OLANZapine 5 MG TABLET PO SCH (21:41)
[2017-02-09] MEDS: LEVALBUTEROL 1.25 MG/3 ML NEB RESP TX SCH ×7 (00:06→23:10)
[2017-02-09 05:53] LABS: Basophils % 0.6 % (0.0-0.8); Eosinophils # 0.2 10*3/uL (0.0-0.87); Eosinophils % 6.8 % (0.00-10.9); Hematocrit 21.7 VOL% (35.7-47.0); Hemoglobin 7.1 GM/DL (12.0-16.0); Immature Granulocytes % 0.3 %; Immature Granulocytes Absolute 0.01 #; Lymphocytes # 0.8 10*3/uL (1.4-4.0); Lymphocytes % 23.7 % (21.3-54.2); Mean Corpuscular HGB Conc 32.7 GM/DL (32-36); Mean Corpuscular Hemoglobin 30 PG (27-34); Mean Corpuscular Volume 92.3 FL (87-102); Mean Platelet Volume 8.9 FL (9.6-12.0); Monocytes # 0.3 10*3/uL (0.11-0.8); Monocytes % 8.9 % (1.7-12.7); Neutrophils % 59.7 % (38.7-73.9); Platelet Count 179 T/CUMM (130-400); Red Blood Count 2.35 MC/CUMM (3.8-5.5); Red Cell Distribution Width 15.2 % (9.3-17.3); White Blood Count 3.4 T/CUMM (4-12)
[2017-02-09] MEDS ORDERED: methylPREDNISolone SOD SUC 40 MG/1 ML VIAL IV ONE (07:00)
[2017-02-09] MEDS ORDERED: diphenhydrAMINE 50 MG/1 ML VIAL IV ONE (07:00)
[2017-02-09] MEDS ORDERED: ACETAMINOPHEN 325 MG TABLET PO ONE (07:00)
[2017-02-09] MEDS: PANTOPRAZOLE 40 MG TABLET PO SCH (08:27)
[2017-02-09] MEDS: ASPIRIN 325 MG TABLET PO SCH (08:27)
[2017-02-09] MEDS: SERTRALINE 50 MG TABLET PO SCH (08:27)
--- NOTE | 2017-02-09 09:01 | Hospitalist Progress Note ---
Assessment and Plan (1) ESRD on hemodialysis Problem details: No acute indication for HD today. Status: Chronic Assessment and plan: She continues hemodialysis under the management of nephrology. There is no evidence of bleeding from her left arm today. Current Visit: No (2) Anemia Status: Acute Assessment and plan: Her hematocrit and hemoglobin were 21.8 and 7.3 yesterday. They are 21.7 and 7.1 today. Current Visit: Yes Qualifiers: Anemia type: other cause Other causes of anemia: acute posthemorrhagic Qualified Code(s): D62 - Acute posthemorrhagic anemia (3) MRSA bacteremia Status: Acute Assessment and plan: Today is day 5 of intravenous vancomycin. I expect that she will require at least 10 days of antibiotics. Current Visit: Yes Hospitalist: Subjective Interval history: Patient spent an uneventful night. She has no new complaints. She continues to complain of pain in the left arm. She continues hemodialysis under the management of nephrology. Exam - Constitutional Vitals: Period Temp Pulse Resp BP Sys/Vera Pulse Ox Last 24 Hr 97.7 F-98.5 F 70-86 16-20 148-172/79-110 95-100 General appearance: no acute distress - Head Head exam: Present: normal inspection - Neck Neck exam: Present: normal inspection - Respiratory Respiratory exam: Present: clear to auscultation bilaterally - Cardiovascular Cardiovascular exam: Present: regular rate and rhythm - GI/Abdominal GI/Abdominal exam: Present: normal bowel sounds, soft, other (Nontender with no palpable masses or hepatosplenomegaly.) - Extremities Exam Extremities exam: Present: other (Edematous tender left upper extremity.) - Expanded Left Upper Extremity Neurosensory exam: Present: 2-point discrimination, median nerve intact, radial nerve intact, ulnar nerve intact - Skin Skin exam: Present: normal color, warm, intact Results - Labs CBC & BMP: 02/09/17 05:36 02/03/17 05:31 Quality Measures - VTE Contraindication to Pharmacological VTE Prophylaxis: Already on Theraputic Agent , No Prophylaxis Needed
[2017-02-09] MEDS: INSULIN LISPRO 100 UNIT/ML SUBCUT SCH ×4 (09:17→21:18)
[2017-02-09] MEDS: FLUTICASONE 50 MCG NASAL SPRAY 16 GM BOTTLE BOTH NARES SCH ×2 (09:18→21:18)
--- NOTE | 2017-02-09 12:37 | Infectious Disease Progress ---
Assessment and Plan (1) MRSA (methicillin resistant Staphylococcus aureus) septicemia Status: Acute Assessment and plan: Recommendations: 1. Repeat blood cultures 2 sets today [forgot to order this end of last week] 2. Continue vancomycin therapy. Goal trough level ~20. We need to get a vancomycin level. 3. Patient will need aggressive intravenous antibiotic therapy for at least 4 weeks from date of negative blood cultures, so until March 09 assuming cultures from today are negative. This of course can be given with dialysis. Following completion of IV antibiotic therapy, because she has catheters in the left of her dialysis which had to be placed while she was still bacteremic, will probably need a period of prolonged suppression with oral antibiotic. 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 Status: Chronic Current Visit: No Infectious Disease - PN: Subj Interval history: Patient doing fairly well, had an uneventful weekend. No more bleeding from the left. Afebrile. Infectious Disease Exam (PN) - Constitutional Vitals: Temp Pulse Resp BP Pulse Ox 98.2 F 77 18 145/93 99 02/09/17 11:05 02/09/17 11:40 02/09/17 11:40 02/09/17 11:05 02/09/17 11:40 General appearance: no acute distress Exam: General appearance: no acute distress, met her doing physical therapy - Eye Eye exam: Present: EOMI. no icterus Pupils: Present: NEEL - ENT ENT exam: no oral exudates - Respiratory Respiratory exam: vesicular BS, no crepitations or wheezes - Cardiovascular Cardiovascular exam: regular rate and rhythm, no murmurs - GI/Abdominal GI/Abdominal exam: normal bowel sounds, soft, non-tender, no organomegaly or mass - Extremities Exam Extremities exam: edema to left upper extremity, bandage over fistula, no induration - Skin Skin exam: no rash Results - Labs CBC & BMP: 02/09/17 05:36 02/03/17 05:31 Lab Results: I have reviewed the past 24 hour labs (TTE without mention of endocarditis) Quality Measures - VTE Contraindication to Pharmacological VTE Prophylaxis: Already on Theraputic Agent , No Prophylaxis Needed
[2017-02-09] MEDS ORDERED: VANCOMYCIN INJ 750 MG in SODIUM CHLORIDE 0.9% 250 ML IV ONE (16:00)
--- NOTE | 2017-02-09 17:29 | Dialysis Note ---
Dialysis Note - Dialysis Note Patient seen on dialysis. She is tolerating the procedure. She will gets 2 units packed red blood cells on dialysis. Blood pressure noted be 209/104. Cardiovascular regular rate. Lungs clear to auscultation. Abdomen is soft.
[2017-02-09] MEDS: cloNIDine 0.1 MG TABLET PO PRN ×2 (18:20→23:01)
[2017-02-09] MEDS ORDERED: EPOETIN ALFA 10,000 UNIT/1 ML VIAL IV PRN (19:56)
[2017-02-09] MEDS ORDERED: cloNIDine 0.1 MG TABLET PO ONE (20:14)
[2017-02-09] MEDS ORDERED: cloNIDine 0.1 MG TABLET PO STA (20:31)
[2017-02-09] MEDS: OLANZapine 5 MG TABLET PO SCH (21:18)
[2017-02-09] MEDS: ATORVASTATIN 40 MG TABLET PO SCH (21:18)
[2017-02-10] MEDS: LEVALBUTEROL 1.25 MG/3 ML NEB RESP TX SCH ×6 (03:10→23:10)
[2017-02-10] MEDS: cloNIDine 0.1 MG TABLET PO PRN ×3 (03:24→11:57)
[2017-02-10] MEDS: ACETAMINOPHEN 325 MG TABLET PO PRN (05:56)
[2017-02-10] MEDS: INSULIN LISPRO 100 UNIT/ML SUBCUT SCH ×4 (08:11→20:45)
[2017-02-10] MEDS: FLUTICASONE 50 MCG NASAL SPRAY 16 GM BOTTLE BOTH NARES SCH ×2 (08:19→22:39)
[2017-02-10] MEDS: PANTOPRAZOLE 40 MG TABLET PO SCH (08:19)
[2017-02-10] MEDS: ASPIRIN 325 MG TABLET PO SCH (08:19)
[2017-02-10] MEDS: SERTRALINE 50 MG TABLET PO SCH (08:19)
--- NOTE | 2017-02-10 08:25 | Hospitalist Progress Note ---
Assessment and Plan (1) ESRD on hemodialysis Problem details: No acute indication for HD today. Status: Chronic Assessment and plan: She continues hemodialysis under the management of nephrology. There is no evidence of bleeding from her left arm today. Current Visit: No (2) Anemia Status: Acute Assessment and plan: Her hematocrit and hemoglobin were 21.7 and 7.1 yesterday. Current Visit: Yes Qualifiers: Anemia type: other cause Other causes of anemia: acute posthemorrhagic Qualified Code(s): D62 - Acute posthemorrhagic anemia (3) MRSA bacteremia Status: Acute Assessment and plan: Patient continues on intravenous vancomycin. Repeat blood cultures are pending. Arrangements are being made for 4 weeks of intravenous vancomycin to be done as an outpatient. Current Visit: Yes (4) Leg pain, left Status: Acute Assessment and plan: I will obtain an x-ray and ultrasound of the left lower extremity today. Current Visit: Yes (5) Hypertension Status: Acute Assessment and plan: Blood pressure today is 192/97. I will start clonidine 0.1 mg p.o. every 8 hours. Current Visit: Yes Qualifiers: Hypertension type: essential hypertension Qualified Code(s): I10 - Essential (primary) hypertension Hospitalist: Subjective Interval history: Patient complains today of left leg pain. I will obtain an x-ray and an ultrasound of the left lower extremity. She continues to be followed by Dr. Reis of infectious disease. Repeat blood cultures are pending. Dr. Reis is recommended 4 weeks of intravenous vancomycin therapy postdischarge. Exam - Constitutional Vitals: Period Temp Pulse Resp BP Sys/Vera Pulse Ox Last 24 Hr 97.5 F-98.6 F 64-86 17-20 133-208/88-106 95-100 General appearance: no acute distress - Head Head exam: Present: normal inspection - Neck Neck exam: Present: normal inspection - Respiratory Respiratory exam: Present: clear to auscultation bilaterally - Cardiovascular Cardiovascular exam: Present: regular rate and rhythm - GI/Abdominal GI/Abdominal exam: Present: normal bowel sounds, soft, other - Extremities Exam Extremities exam: Present: normal inspection, other (Nontender.) - Expanded Left Upper Extremity Neurosensory exam: Present: 2-point discrimination, median nerve intact, radial nerve intact, ulnar nerve intact - Skin Skin exam: Present: normal color, warm, intact Results - Labs CBC & BMP: 02/09/17 05:36 02/03/17 05:31 Quality Measures - VTE Contraindication to Pharmacological VTE Prophylaxis: Already on Theraputic Agent , No Prophylaxis Needed
[2017-02-10] MEDS: cloNIDine 0.1 MG TABLET PO SCH ×3 (08:45→20:45)
--- NOTE | 2017-02-10 08:55 | Nephrology Progress Note ---
Nephrology - PN: Subj Interval history: Patient is resting. She did have low-grade temperature today. Hematocrit is still trending down. No active signs of bleeding. Tolerated dialysis on yesterday. Plan for dialysis tomorrow. Will transfuse 2 units packed red blood cells on dialysis tomorrow. Blood cultures are pending. 02/04/2017. The patient had an temp of a dialysis catheter placed today however she has several areas of stenosis and could not be placed. At this time interventional radiology has been consulted and making further preparations for a fistulogram and possible preserve the fistula that is in place. If not, a lumbar catheter or transhepatic catheter will be placed. 02/10/2017. The patient is resting comfortably. She tolerated dialysis on yesterday. No shortness of breath or chest pain. She is hemodynamically stable. She did receive 2 units packed red blood cells on dialysis on yesterday. Will check CBC in a.m. Exam (PN)-Nephrology - Vital Signs Vital signs: Period Temp Pulse Resp BP Sys/Vera Pulse Ox Last 24 Hr 97.5 F-98.6 F 64-80 17-20 133-208/88-106 95-100 - General Appearance General appearance: well-developed, well-nourished EENT: ATNC Neck: supple Respiratory: clear Cardiology: regular rate, regular rhythm Gastrointestinal: normoactive bowel sounds, no tenderness Neurologic: alert and oriented x3, CN 3-12 intact Musculoskeletal: no clubbing Psychiatric: mood/affect appropriate, cooperative - Lab 02/09/17 05:36 02/03/17 05:31 Most recent lab results Calcium 9.4 MG/DL (8.5-10.1) 02/03/17 05:31 Phosphorus 7.8 MG/DL (2.5-4.9) H 02/04/17 05:41 Magnesium 1.9 MG/DL (1.8-2.4) 02/04/17 05:41 Assessment and Plan (1) ESRD on hemodialysis Problem details: No acute indication for HD today. Status: Chronic Current Visit: No (2) Anemia Status: Acute Current Visit: Yes Qualifiers: Anemia type: other cause Other causes of anemia: acute posthemorrhagic Qualified Code(s): D62 - Acute posthemorrhagic anemia (3) Bleeding Status: Acute Current Visit: Yes
--- NOTE | 2017-02-10 10:07 | Infectious Disease Progress ---
Assessment and Plan (1) MRSA (methicillin resistant Staphylococcus aureus) septicemia Status: Acute Assessment and plan: Recommendations: 1. Follow-up results of repeat blood cultures 2. Continue vancomycin therapy. Goal trough level ~20. Intravenous antibiotic therapy will be until March 09. Will consider oral antibiotic suppression afterwards since she has a catheter in the left arm. 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 Patient developed quite significant anemia and had blood transfusion. Continue to monitor. Current Visit: Yes (3) Hypertension Status: Acute Current Visit: No (4) ESRD on hemodialysis Problem details: No acute indication for HD today. Status: Chronic Current Visit: No Infectious Disease - PN: Subj Interval history: Patient seen and examined this morning. She was doing well. No complaints, afebrile, less swelling to left upper extremity. Infectious Disease Exam (PN) - Constitutional Vitals: Temp Pulse Resp BP Pulse Ox 97.0 F L 59 L 18 202/109 99 02/10/17 07:35 02/10/17 07:35 02/10/17 07:35 02/10/17 07:35 02/10/17 07:35 General appearance: no acute distress Exam: General appearance: no acute distress - Eye Eye exam: Present: EOMI. no icterus Pupils: Present: NEEL - ENT ENT exam: no oral exudates - Respiratory Respiratory exam: vesicular BS, no crepitations or wheezes - Cardiovascular Cardiovascular exam: regular rate and rhythm, no murmurs - GI/Abdominal GI/Abdominal exam: normal bowel sounds, soft, non-tender, no organomegaly or mass - Extremities Exam Extremities exam: edema to left upper extremity improving, bandage over fistula , no induration - Skin Skin exam: no rash Results - Labs CBC & BMP: 02/09/17 05:36 02/03/17 05:31 Lab Results: I have reviewed the past 24 hour labs Quality Measures - VTE Contraindication to Pharmacological VTE Prophylaxis: Already on Theraputic Agent , No Prophylaxis Needed
--- NOTE | 2017-02-10 10:42 | Ultrasound Report ---
History is left leg swelling and pain Grayscale, spectral Doppler, and color flow analysis performed and interpreted There is echogenic noncompressible nonocclusive thrombus in left common femoral vein with partial flow. Small amount of thrombus extends into the saphenous vein no evidence of thrombus seen in the left superficial femoral or popliteal veins Critical test results personally discussed with the ordering physician at 10:35 AM Impression: left lower extremity DVT PROCEDURE INTERPRETED AT [facility] DEPARTMENT OF RADIOLOGY Final Report Signed by: Dr. Stephanie Linares
--- NOTE | 2017-02-10 10:52 | XRay Report ---
XR tibia fibula LT, 2 views; XR ankle 2V LT, XR foot 2V LT Clinical Information: ^pain Comparison: None available Findings: There is no acute fracture or evidence of dislocation. There is no joint effusion. No suspicious osseous or soft tissue lesions are identified. Visualized joint spaces appear relatively preserved. Impression: No acute findings. PROCEDURE INTERPRETED AT [facility] DEPARTMENT OF RADIOLOGY Final Report Signed by: Mika Boone
[2017-02-10] MEDS: APIXABAN 2.5 MG TABLET PO SCH ×2 (11:56→20:46)
[2017-02-10] MEDS: hydrALAZINE 20 MG/1 ML VIAL IV PRN (12:57)
[2017-02-10] MEDS: ATORVASTATIN 40 MG TABLET PO SCH (20:45)
[2017-02-10] MEDS: OLANZapine 5 MG TABLET PO SCH (20:45)
[2017-02-11] MEDS: LEVALBUTEROL 1.25 MG/3 ML NEB RESP TX SCH ×6 (03:00→23:55)
[2017-02-11] MEDS: hydrALAZINE 20 MG/1 ML VIAL IV PRN (06:33)
[2017-02-11 06:43] LABS: Basophils % 0.6 % (0.0-0.8); Eosinophils # 0.3 10*3/uL (0.0-0.87); Eosinophils % 5.5 % (0.00-10.9); Hematocrit 28.1 VOL% (35.7-47.0); Immature Granulocytes % 0.6 %; Immature Granulocytes Absolute 0.03 #; Lymphocytes % 20.3 % (21.3-54.2); Mean Corpuscular HGB Conc 32.7 GM/DL (32-36); Mean Corpuscular Hemoglobin 31 PG (27-34); Mean Platelet Volume 8.7 FL (9.6-12.0); Monocytes # 0.4 10*3/uL (0.11-0.8); Monocytes % 8.9 % (1.7-12.7); Neutrophils % 64.1 % (38.7-73.9); Red Cell Distribution Width 15.6 % (9.3-17.3)
[2017-02-11 06:55] LABS: Red Blood Count 3.02 MC/CUMM (3.8-5.5); White Blood Count 4.7 T/CUMM (4-12)
[2017-02-11 06:56] LABS: Hemoglobin 9.2 GM/DL (12.0-16.0); Platelet Count 218 T/CUMM (130-400)
[2017-02-11] MEDS: INSULIN LISPRO 100 UNIT/ML SUBCUT SCH ×4 (08:13→21:08)
[2017-02-11] MEDS: APIXABAN 2.5 MG TABLET PO SCH ×2 (08:14→21:08)
[2017-02-11] MEDS: ASPIRIN 325 MG TABLET PO SCH (08:14)
[2017-02-11] MEDS: PANTOPRAZOLE 40 MG TABLET PO SCH (08:15)
[2017-02-11] MEDS: cloNIDine 0.1 MG TABLET PO SCH ×2 (08:15→14:03)
[2017-02-11] MEDS: FLUTICASONE 50 MCG NASAL SPRAY 16 GM BOTTLE BOTH NARES SCH ×2 (08:15→21:08)
[2017-02-11] MEDS: SERTRALINE 50 MG TABLET PO SCH (08:15)
--- NOTE | 2017-02-11 09:13 | Hospitalist Progress Note ---
Assessment and Plan (1) ESRD on hemodialysis Problem details: No acute indication for HD today. Status: Chronic Assessment and plan: She continues hemodialysis under the management of nephrology. Current Visit: No (2) Anemia Status: Acute Assessment and plan: Her hematocrit and hemoglobin menjivar 28.1 and 9.2 today. Current Visit: Yes Qualifiers: Anemia type: other cause Other causes of anemia: acute posthemorrhagic Qualified Code(s): D62 - Acute posthemorrhagic anemia (3) MRSA bacteremia Status: Acute Assessment and plan: Patient continues on intravenous vancomycin. Repeat blood cultures are pending. Arrangements are being made for 4 weeks of intravenous vancomycin to be done as an outpatient. Current Visit: Yes (4) Leg pain, left Status: Acute Assessment and plan: Venous duplex Doppler examination demonstrated deep vein thrombophlebitis of the left lower extremity. She has been restarted on apixaban 2.5 mg p.o. twice daily. We will monitor her left arm closely for possible recurrent bleeding from the AV fistula. Current Visit: Yes (5) Hypertension Status: Acute Assessment and plan: Blood pressure today is 168/94. I will increase clonidine to 0.2 mg p.o. every 8 hours. Current Visit: Yes Qualifiers: Hypertension type: essential hypertension Qualified Code(s): I10 - Essential (primary) hypertension Hospitalist: Subjective Interval history: Patient complains of pain of her left leg yesterday. A venous duplex Doppler examination demonstrated her to have evidence of deep vein thrombophlebitis of the left lower extremity. She was restarted on her apixaban 2.5 mg p.o. twice daily. Exam - Constitutional Vitals: Period Temp Pulse Resp BP Sys/Vera Pulse Ox Last 24 Hr 96.8 F-98.3 F 59-92 16-20 148-180/72-105 95-100 General appearance: no acute distress - Head Head exam: Present: normal inspection - Neck Neck exam: Present: normal inspection - Respiratory Respiratory exam: Present: clear to auscultation bilaterally - Cardiovascular Cardiovascular exam: Present: regular rate and rhythm - GI/Abdominal GI/Abdominal exam: Present: normal bowel sounds, soft, other (Nontender with no palpable masses or hepatosplenomegaly.) - Extremities Exam Extremities exam: Present: other (There is less tenderness of the left leg today. There was no evident edema.) - Expanded Left Upper Extremity Neurosensory exam: Present: 2-point discrimination, median nerve intact, radial nerve intact, ulnar nerve intact - Skin Skin exam: Present: normal color, warm, intact Results - Labs CBC & BMP: 02/11/17 05:32 02/03/17 05:31 Quality Measures - VTE Contraindication to Pharmacological VTE Prophylaxis: Already on Theraputic Agent , No Prophylaxis Needed
--- NOTE | 2017-02-11 09:30 | Dialysis Note ---
Dialysis Note - Dialysis Note Patient seen on dialysis she is tolerating the procedure. Blood pressure is 169 /80. Cardiovascular regular rate. Lungs clear to auscultation. Abdomen is soft.
--- NOTE | 2017-02-11 10:54 | Infectious Disease Progress ---
Assessment and Plan (1) MRSA (methicillin resistant Staphylococcus aureus) septicemia Status: Acute Assessment and plan: Patient clinically doing better with repeat blood cultures from the ninth negative today. Recommendations: Continue vancomycin therapy, 750 mg after each dialysis, until March 09. Patient will get this when she goes for dialysis. Will consider oral antibiotic suppression afterwards since she has a graft in the left arm. 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 Status: Chronic Current Visit: No Infectious Disease - PN: Subj Interval history: Patient doing okay. No issues over the past 24 hours. Has been afebrile. Infectious Disease Exam (PN) - Constitutional Vitals: Temp Pulse Resp BP Pulse Ox 97.6 F 59 L 20 168/94 99 02/11/17 08:07 02/11/17 08:07 02/11/17 08:07 02/11/17 08:07 02/11/17 08:07 General appearance: no acute distress Exam: General appearance: no acute distress, was on dialysis - Eye Eye exam: Present: EOMI. no icterus Pupils: Present: NEEL - ENT ENT exam: no oral exudates - Respiratory Respiratory exam: vesicular BS, no crepitations or wheezes - Cardiovascular Cardiovascular exam: regular rate and rhythm, no murmurs - GI/Abdominal GI/Abdominal exam: normal bowel sounds, soft, non-tender, no organomegaly or mass - Extremities Exam Extremities exam: Decreasing edema to left upper extremity, bandage over fistula , no induration - Skin Skin exam: no rash Results - Labs CBC & BMP: 02/11/17 05:32 02/03/17 05:31 Lab Results: I have reviewed the past 24 hour labs Quality Measures - VTE Contraindication to Pharmacological VTE Prophylaxis: Already on Theraputic Agent , No Prophylaxis Needed
[2017-02-11] MEDS ORDERED: VANCOMYCIN INJ 750 MG in SODIUM CHLORIDE 0.9% 250 ML IV ONE (14:00)
[2017-02-11] MEDS: ATORVASTATIN 40 MG TABLET PO SCH (21:08)
[2017-02-11] MEDS: OLANZapine 5 MG TABLET PO SCH (21:08)
[2017-02-12] MEDS: LEVALBUTEROL 1.25 MG/3 ML NEB RESP TX SCH ×3 (02:50→10:56)
[2017-02-12] MEDS: INSULIN LISPRO 100 UNIT/ML SUBCUT SCH ×2 (07:45→13:21)
[2017-02-12] MEDS: SERTRALINE 50 MG TABLET PO SCH (08:06)
[2017-02-12] MEDS: APIXABAN 2.5 MG TABLET PO SCH (08:06)
[2017-02-12] MEDS: PANTOPRAZOLE 40 MG TABLET PO SCH (08:06)
[2017-02-12] MEDS: FLUTICASONE 50 MCG NASAL SPRAY 16 GM BOTTLE BOTH NARES SCH (08:06)
[2017-02-12] MEDS: ASPIRIN 325 MG TABLET PO SCH (08:06)
--- NOTE | 2017-02-12 08:56 | Hospitalist Progress Note ---
Assessment and Plan (1) ESRD on hemodialysis Problem details: No acute indication for HD today. Status: Chronic Assessment and plan: She continues hemodialysis under the management of nephrology. Current Visit: No (2) Anemia Status: Acute Assessment and plan: Her hematocrit and hemoglobin menjivar 28.1 and 9.2 yesterday. Current Visit: Yes Qualifiers: Anemia type: other cause Other causes of anemia: acute posthemorrhagic Qualified Code(s): D62 - Acute posthemorrhagic anemia (3) MRSA bacteremia Status: Acute Assessment and plan: Patient continues on intravenous vancomycin. Repeat blood cultures are negative. Arrangements are being made for 4 weeks of intravenous vancomycin to be done as an outpatient. Current Visit: Yes (4) Leg pain, left Status: Acute Assessment and plan: Venous duplex Doppler examination demonstrated deep vein thrombophlebitis of the left lower extremity. She has been restarted on apixaban 2.5 mg p.o. twice daily. We will monitor her left arm closely for possible recurrent bleeding from the AV fistula. Current Visit: Yes (5) Hypertension Status: Acute Assessment and plan: Blood pressure today is 141/79. I will continue clonidine 0.2 mg p.o. every 8 hours. Current Visit: Yes Qualifiers: Hypertension type: essential hypertension Qualified Code(s): I10 - Essential (primary) hypertension Hospitalist: Subjective Interval history: Patient is much more comfortable today. She is not experiencing pain in her left leg. She was restarted on apixaban for deep vein thrombophlebitis of the left leg, as demonstrated by venous duplex Doppler examination. She continues receiving intravenous vancomycin, as per infectious diseases. I will make appropriate arrangements so that she can be discharged tomorrow and continue to receive as an outpatient at hemodialysis her vancomycin. Exam - Constitutional Vitals: Period Temp Pulse Resp BP Sys/Vera Pulse Ox Last 24 Hr 97.2 F-98.5 F 59-77 16-20 131-169/75-92 95-100 General appearance: no acute distress - Head Head exam: Present: normal inspection - Neck Neck exam: Present: normal inspection - Respiratory Respiratory exam: Present: clear to auscultation bilaterally - Cardiovascular Cardiovascular exam: Present: regular rate and rhythm - GI/Abdominal GI/Abdominal exam: Present: normal bowel sounds, soft, other (Nontender with no palpable masses or hepatosplenomegaly.) - Extremities Exam Extremities exam: Present: normal inspection, other (No tenderness or edema of the left lower extremity.) - Expanded Left Upper Extremity Neurosensory exam: Present: 2-point discrimination, median nerve intact, radial nerve intact, ulnar nerve intact - Neurological Exam Neurological exam: Present: alert, oriented X3 - Skin Skin exam: Present: normal color, warm, intact Results - Labs CBC & BMP: 02/11/17 05:32 02/03/17 05:31 Quality Measures - VTE Contraindication to Pharmacological VTE Prophylaxis: Already on Theraputic Agent , No Prophylaxis Needed Specialty Discharge - Follow Up or Referrals Follow up with: Danyell Reis MD [Physician] - 2 Weeks
--- NOTE | 2017-02-12 09:31 | Nephrology Progress Note ---
Nephrology - PN: Subj Interval history: Patient is resting. She did have low-grade temperature today. Hematocrit is still trending down. No active signs of bleeding. Tolerated dialysis on yesterday. Plan for dialysis tomorrow. Will transfuse 2 units packed red blood cells on dialysis tomorrow. Blood cultures are pending. 02/04/2017. The patient had an temp of a dialysis catheter placed today however she has several areas of stenosis and could not be placed. At this time interventional radiology has been consulted and making further preparations for a fistulogram and possible preserve the fistula that is in place. If not, a lumbar catheter or transhepatic catheter will be placed. 02/10/2017. The patient is resting comfortably. She tolerated dialysis on yesterday. No shortness of breath or chest pain. She is hemodynamically stable. She did receive 2 units packed red blood cells on dialysis on yesterday. Will check CBC in a.m. 02/12/2017. Patient is resting comfortably no acute changes. She has been doing acceptable. No shortness of breath or chest pain. Exam (PN)-Nephrology - Vital Signs Vital signs: Period Temp Pulse Resp BP Sys/Vera Pulse Ox Last 24 Hr 97.2 F-98.5 F 59-77 16-20 131-169/75-92 95-100 - General Appearance General appearance: well-developed, well-nourished EENT: ATNC Neck: supple Respiratory: clear Cardiology: no edema, regular rate, regular rhythm Gastrointestinal: normoactive bowel sounds, no tenderness Musculoskeletal: no clubbing Psychiatric: mood/affect appropriate, cooperative - Lab 02/11/17 05:32 02/03/17 05:31 Most recent lab results Calcium 9.4 MG/DL (8.5-10.1) 02/03/17 05:31 Phosphorus 7.8 MG/DL (2.5-4.9) H 02/04/17 05:41 Magnesium 1.9 MG/DL (1.8-2.4) 02/04/17 05:41 Assessment and Plan (1) ESRD on hemodialysis Problem details: No acute indication for HD today. Status: Chronic Current Visit: No (2) Anemia Status: Acute Current Visit: Yes Qualifiers: Anemia type: other cause Other causes of anemia: acute posthemorrhagic Qualified Code(s): D62 - Acute posthemorrhagic anemia (3) Bleeding Status: Acute Current Visit: Yes Specialty Discharge - Follow Up or Referrals Follow up with: Danyell Reis MD [Physician] - 2 Weeks
[2017-02-12 10:59] VITALS: BP 150/92
--- NOTE | 2017-02-12 11:09 | Discharge Summary ---
Hospital Course - Hospital Course Hospital Course: Pt is a 51 y/o black female arriving to ED by EMS from a [facility] in [place] with c/o bleed that onset an hour [employer]. Nurses report that pt bumped her arm on a wall and her AV fistula began to bleed and would not stop. They report that pt bled about 20 minutes before EMS and lost about a liter of blood. Pt dialyzes every M/W/F . Pt arrived to ED with a pressure dressing but blood is still visible. Pt states that she has been recently complaining that the area around her AV fistula has been swelling. While in ED, pt is diaphoretic but awake and alert and states that she is scared. Pt has a blood pressure of 100/ 53 taken on her let thigh. She is a Brown pt; however, she was brought to ED. Pt has a PMHx of HTN, ESRD, dialysis, and CVA with left sided weakness. No other complaints were reported to ED She was seen in consultations by Dr. Crawford of general surgery, Dr. Bello of nephrology, and Dr. Carlos Douglas of infectious diseases. She experienced significant problems with her AV fistula including bleeding, necessitating temporary discontinuation of her apixaban, and stenosis for which he underwent attempted dilation.Blood cultures were positive for MRSA. Echocardiographic did not demonstrate evidence of valvular endocarditis. She was treated with intravenous vancomycin. She subsequently developed deep vein thrombophlebitis of the left lower extremity, confirmed by venous duplex Doppler exam. Her apixaban was restarted. At the time of her discharge she was stable. Diagnosis - Discharge Diagnosis (1) ESRD on hemodialysis Status: Chronic (2) Anemia Status: Acute (3) MRSA bacteremia Status: Acute (4) Leg pain, left Status: Acute (5) Hypertension Status: Acute (6) DVT (deep venous thrombosis) Status: Acute Specialty Discharge - Follow Up or Referrals Follow up with: Danyell Reis MD [Physician] - 2 Weeks Discharge Plan - Discharge Data Disposition: Disch To Home/Self Care Condition at Discharge: Stable Discharge Diet: advance to your usual diet Activity: resume usual activities as tolerated - Discharge Medications Continue Sertraline HCl 50 mg PO DAILY OLANZapine [Olanzapine] 5 mg PO BEDTIME HYDROcodone/ACETAMIN 5-325 [[place] 5-325] 1 tablet PO Q4H PRN PRN Reason: Pain Moderate To Severe (4-10) Acetaminophen Tab [Tylenol Tab] 650 mg PO Q4H PRN PRN Reason: Pain Mild (1-3) And/Or Fever Epoetin Bony [Procrit] 10,000 unit SUBCUT PRN PRN PRN Reason: Dialysis Heparin Sodium,Porcine [Heparin Sodium] 10 ml IV PRN PRN PRN Reason: Dialysis Mag Hydrox/Aluminum Hyd/Simeth [Maalox Maximum Strength Susp] 30 ml PO Q6HR PRN PRN Reason: Indigestion Magnesium Hydroxide Susp [Milk of Magnesia] 45 ml PO PRN PRN PRN Reason: Indigestion Fluticasone Propionate [Flonase Allergy Relief] 1 spray BOTH NARES BID Atorvastatin Calcium 40 mg PO BEDTIME Aspirin 325 mg PO DAILY Apixaban [Eliquis] 2.5 mg PO BID tablet hydrALAZINE TAB [Apresoline Tab] 75 mg PO BID tablet - Follow Up or Referral Follow Up: Danyell Reis MD [Physician] - 2 Weeks - Forms/Instructions Exam - Constitutional Vitals: Period Temp Pulse Resp BP Sys/Vera Pulse Ox Last 24 Hr 97.2 F-98.5 F 59-77 16-20 131-169/75-92 95-100 Discharge Results Procedures and tests throughout hospitalization: Pending Orders 02/09/17 08:15 Blood Culture Stat 02/13/17 04:00 Comp Blood Count Auto Diff IN AM Comprehensive Metabolic Panel IN AM Labs on day of discharge: Labs from last 24 hours 02/12/17 02/11/17 02/11/17 07:29 18:57 15:47 POC Glucose 146 H 109 H 129 H 02/11/17 13:19 POC Glucose 113 H Preliminary micro results at discharge 02/09/17 08:15 Blood Culture - Preliminary Blood No growth at 3 days 02/09/17 08:15 Blood Culture - Preliminary Blood No growth at 3 days DS: Provider Date of admission: 01/31/17 23:24 Primary care physician: . No PCP Attending physician on admission: Serafin Martini MD Consults: 01/31/17 23:36 Consult to Physician [CONS] Routine Comment: dialysis pt with hyperkalemia Consulting Provider: Joaquin Bello Jr. Consulting Provider Notified: No When should Consulting Provider be notified: In am Person Notified: dr bello Date Notified: 02/01/17 Time Notified: 11:13 02/03/17 18:30 Consult to Occupational Therapy [CONS] Routine Reason for Occupational Therapy: Evaluate and Treat PT [Consult to Physical Therapy] [CONS] Routine Reason for Physical Therapy: Evaluate and Treat 02/04/17 08:44 Consult to Physician [CONS] Routine Comment: Consulting Provider: William Kilgore Person Notified: MD roger Date Notified: 02/04/17 Time Notified: 08:44 02/04/17 12:28 Consult to Pharmacy [CONS] Routine Reason for Pharmacy Consult: Dose/Manage Vancomycin 02/05/17 07:27 Consult to Physician [CONS] Routine Comment: Consulting Provider: Danyell Reis When should Consulting Provider be notified: In am Person Notified: ARLETH Date Notified: 02/05/17 Time Notified: 09:18 02/10/17 08:09 Consult to Case Mgmt/Social Srvs [CONS] Routine Reason for Case Mgmt/Social Srvs: Discharge Planning Consult Comment: IV vanco at dialysis. Ready for discharge. 02/12/17 08:40 Consult to Case Mgmt/Social Srvs [CONS] Routine Reason for Case Mgmt/Social Srvs: Discharge Planning Consult Comment: IV vanco at dialysis. Ready for discharge. Discharging clinician: Jarred Phillips
== END 2017-02-12 13:10 | DRG 314 ==
LOC: EDUNIT# → EDBD → N.ED 20:48 → SUATTDRO 23:23 → N.EDINP 23:23 → SUATTDRO 23:24 → N.5E 02-01 00:22
PROVIDERS: ADMIT Internal Medicine

== ENCOUNTER 2017-08-17 05:48 | Inpatient (IN) ==
[2017-08-17] MEDS ORDERED: niCARdipine 25 MG/10 ML VIAL IV ONE (06:17)
[2017-08-17] MEDS ORDERED: FUROSEMIDE 40 MG/4 ML VIAL IV STA (06:23)
[2017-08-17] MEDS ORDERED: FUROSEMIDE 100 MG/10 ML VIAL ONE (06:32)
[2017-08-17] MEDS: niCARdipine INJ 25 MG in SODIUM CHLORIDE 0.9% 240 ML IV PRN ×2 (06:33→09:29)
[2017-08-17 06:43] LABS: Calcium 9.1 MG/DL (8.5-10.1); Osmolality,Calculated 304.8 MOS/KG (273-304)
[2017-08-17 06:45] LABS: Potassium 6.5 MMOL/L (3.5-5.1)
[2017-08-17 06:45] LABS: Basophils % 0.7 % (0.0-0.8); Eosinophils # 0.2 10*3/uL (0.0-0.87); Eosinophils % 3.1 % (0.00-10.9); Hematocrit 29.8 VOL% (35.7-47.0); Hemoglobin 9.2 GM/DL (12.0-16.0); Immature Granulocytes % 0.4 %; Immature Granulocytes Absolute 0.02 #; Lymphocytes # 0.7 10*3/uL (1.4-4.0); Lymphocytes % 12.3 % (21.3-54.2); Mean Corpuscular HGB Conc 30.9 GM/DL (32-36); Mean Corpuscular Hemoglobin 31 PG (27-34); Mean Corpuscular Volume 98.7 FL (87-102); Mean Platelet Volume 9.9 FL (9.6-12.0); Monocytes # 0.4 10*3/uL (0.11-0.8); Monocytes % 6.8 % (1.7-12.7); Neutrophils # 4.2 10*3/uL (1.4-7.4); Neutrophils % 76.7 % (38.7-73.9); Platelet Count 153 T/CUMM (130-400); Red Blood Count 3.02 MC/CUMM (3.8-5.5); Red Cell Distribution Width 18.1 % (9.3-17.3); White Blood Count 5.4 T/CUMM (4-12)
[2017-08-17] MEDS ORDERED: INSULIN REGULAR 100 UNIT/ML IV STA (06:54)
[2017-08-17] MEDS ORDERED: CALCIUM CHLORIDE 1,000 MG/10 ML SYRINGE IV STA (06:54)
[2017-08-17] MEDS ORDERED: DEXTROSE 50% 25 GM/50 ML VIAL IV STA (06:54)
[2017-08-17] MEDS ORDERED: SODIUM BICARBONATE 50 MEQ/50 ML VIAL IV STA (06:54)
[2017-08-17] MEDS ORDERED: DEXTROSE 50% 25 GM/50 ML SYRINGE IV ONE (07:02)
[2017-08-17] MEDS ORDERED: CALCIUM CHLORIDE 1,000 MG/10 ML SYRINGE IV ONE (07:02)
[2017-08-17] MEDS ORDERED: SODIUM BICARBONATE 50 MEQ/50 ML SYRINGE IV ONE (07:02)
[2017-08-17] MEDS ORDERED: INSULIN REGULAR 100 UNIT/ML ONE (07:03)
[2017-08-17] MEDS ORDERED: EPOETIN ALFA 10,000 UNIT/1 ML VIAL SUBCUT PRN (07:36)
[2017-08-17] MEDS ORDERED: HEPARIN 1,000 UNIT/1 ML VIAL IV PRN (07:36)
[2017-08-17] MEDS ORDERED: ACETAMINOPHEN 325 MG TABLET PO PRN (08:09)
[2017-08-17] MEDS ORDERED: ONDANSETRON 4 MG/2 ML VIAL IV PRN (08:09)
[2017-08-17] MEDS: ASPIRIN 325 MG TABLET PO SCH (09:36)
[2017-08-17] MEDS: APIXABAN 2.5 MG TABLET PO SCH ×2 (09:36→20:05)
[2017-08-17] MEDS: hydrALAZINE 25 MG TABLET PO SCH ×3 (09:36→20:19)
[2017-08-17] MEDS: FLUTICASONE 50 MCG NASAL SPRAY 16 GM BOTTLE BOTH NARES SCH ×2 (09:37→20:04)
[2017-08-17] MEDS: DOCUSATE SODIUM 100 MG CAPSULE PO SCH ×2 (09:37→20:03)
[2017-08-17] MEDS: PANTOPRAZOLE 40 MG TABLET PO SCH (09:37)
[2017-08-17] MEDS: SERTRALINE 50 MG TABLET PO SCH (09:37)
[2017-08-17] MEDS ORDERED: niCARdipine INJ 50 MG in SODIUM CHLORIDE 0.9% 230 ML IV PRN (11:30)
[2017-08-17] MEDS ORDERED: PNEUMOCOCCAL VACCINE (13 VALENT) 0.5 ML SYRINGE IM ONE (13:49)
[2017-08-17] MEDS ORDERED: ATORVASTATIN 40 MG TABLET PO SCH (21:00)
[2017-08-17] MEDS ORDERED: OLANZapine 5 MG TABLET PO SCH (21:00)
[2017-08-18 06:35] LABS: Calcium 9.3 MG/DL (8.5-10.1); Osmolality,Calculated 290.8 MOS/KG (273-304); Potassium 5.2 MMOL/L (3.5-5.1)
[2017-08-18] MEDS ORDERED: CINACALCET 30 MG TABLET PO SCH (09:00)
[2017-08-18] MEDS: hydrALAZINE 25 MG TABLET PO SCH (09:26)
[2017-08-18] MEDS: SEVELAMER CARBONATE 800 MG TABLET PO SCH ×2 (09:26→12:59)
[2017-08-18] MEDS: SERTRALINE 50 MG TABLET PO SCH (09:27)
[2017-08-18] MEDS: APIXABAN 2.5 MG TABLET PO SCH (09:27)
[2017-08-18] MEDS: DOCUSATE SODIUM 100 MG CAPSULE PO SCH (09:27)
[2017-08-18] MEDS: ASPIRIN 325 MG TABLET PO SCH (09:27)
[2017-08-18] MEDS: PANTOPRAZOLE 40 MG TABLET PO SCH (09:27)
[2017-08-18] MEDS: FLUTICASONE 50 MCG NASAL SPRAY 16 GM BOTTLE BOTH NARES SCH (09:39)
[2017-08-18 11:54] VITALS: BP 135/106
== END 2017-08-18 13:08 | disposition home or self-care (01) | DRG 189 ==
LOC: EDBD → EDUNIT# → N.ED 05:48 → N.EDINP 07:31 → N.ICU 07:56 → N.2E 23:06
PROVIDERS: ADMIT Family Medicine; ATTEND Family Medicine

== ENCOUNTER 2017-08-23 20:55 | Inpatient (IN) ==
[2017-08-23] MEDS ORDERED: ONDANSETRON 4 MG/2 ML VIAL IV STA (21:15)
[2017-08-23] MEDS ORDERED: ALBUTEROL 2.5 MG/3 ML NEB RESP TX SCH (21:30)
[2017-08-23] MEDS ORDERED: LEVOFLOXACIN INJ 750 MG in PREMIX 1 EACH IV STA (21:48)
[2017-08-23 22:03] LABS: Partial Thromboplastin Time 24.5 SECS (0-40)
[2017-08-23 22:08] LABS: Alanine Aminotransferase 17 U/L (13-56); Alkaline Phosphatase 183 U/L (45-117); Aspartate Amino Transferase 29 U/L (0-37); Blood Urea Nitrogen 103 MG/DL (7-18); Calcium 9.7 MG/DL (8.5-10.1); Glucose 105 MG/DL (74-106); Osmolality,Calculated 304.8 MOS/KG (273-304); Sodium 137 MMOL/L (136-145); Total Protein 9.4 G/DL (6.4-8.3); Troponin I Only 0.025 NG/ML (0.00-0.045)
[2017-08-23] MEDS ORDERED: LEVOFLOXACIN INJ 150 ML IV ONE (22:10)
[2017-08-23] MEDS ORDERED: ONDANSETRON 4 MG/2 ML VIAL ONE (22:10)
[2017-08-23 22:15] LABS: Potassium 6.6 MMOL/L (3.5-5.1)
[2017-08-23] MEDS ORDERED: CALCIUM CHLORIDE 1,000 MG/10 ML SYRINGE IV STA (22:16)
[2017-08-23 22:36] LABS: Basophils # 0.1 10*3/uL (0.0-0.2); Basophils % 0.7 % (0.0-0.8); Eosinophils # 0.2 10*3/uL (0.0-0.87); Hematocrit 33.7 VOL% (35.7-47.0); Hemoglobin 10.2 GM/DL (12.0-16.0); Immature Granulocytes % 0.4 %; Immature Granulocytes Absolute 0.03 #; Lymphocytes # 0.8 10*3/uL (1.4-4.0); Lymphocytes % 10.6 % (21.3-54.2); Mean Corpuscular HGB Conc 30.3 GM/DL (32-36); Mean Corpuscular Hemoglobin 30 PG (27-34); Mean Corpuscular Volume 97.4 FL (87-102); Monocytes # 0.4 10*3/uL (0.11-0.8); Monocytes % 5.2 % (1.7-12.7); Neutrophils # 6.1 10*3/uL (1.4-7.4); Neutrophils % 81.1 % (38.7-73.9); Platelet Count 206 T/CUMM (130-400); Red Blood Count 3.46 MC/CUMM (3.8-5.5); White Blood Count 7.5 T/CUMM (4-12)
[2017-08-23 22:47] LABS: ABG Base Excess 0.5 MMOL/L (-2.5-2.5); ABG HCO3 24.9 MMOL/L (20-26); ABG Oxygen Saturation 98.9 % (95-100); ABG PCO2 39.5 MM HG (35-48); ABG PH 7.409 (7.35-7.45); ABG TCO2 22.8 MMOL/L (23-27)
[2017-08-23] MEDS ORDERED: CALCIUM CHLORIDE 1,000 MG/10 ML SYRINGE IV ONE (22:48)
[2017-08-23] MEDS ORDERED: INSULIN REGULAR 100 UNIT/ML IV STA (22:56)
[2017-08-23] MEDS ORDERED: DEXTROSE 50% 25 GM/50 ML VIAL IV STA (22:56)
[2017-08-23] MEDS ORDERED: hydrALAZINE 20 MG/1 ML VIAL IV STA (23:31)
[2017-08-23] MEDS ORDERED: hydrALAZINE 20 MG/1 ML VIAL ONE (23:32)
[2017-08-23] MEDS ORDERED: DEXTROSE 50% 25 GM/50 ML SYRINGE IV ONE (23:49)
[2017-08-23] MEDS ORDERED: INSULIN REGULAR 100 UNIT/ML ONE (23:51)
[2017-08-24] MEDS ORDERED: ONDANSETRON 4 MG/2 ML VIAL IV PRN (00:43)
[2017-08-24] MEDS ORDERED: SODIUM POLYSTYRENE SULFATE 15 GM/60 ML BOTTLE PO ONE (00:43)
[2017-08-24] MEDS ORDERED: ALBUTEROL 2.5 MG/3 ML NEB RESP TX PRN (00:43)
[2017-08-24] MEDS ORDERED: METOPROLOL TARTRATE 5 MG/5 ML VIAL IV STA (00:57)
[2017-08-24] MEDS ORDERED: hydrALAZINE 20 MG/1 ML VIAL IV PRN (00:57)
[2017-08-24] MEDS ORDERED: ALBUTEROL/IPRATROPIUM 3 ML NEB RESP TX SCH (01:00)
[2017-08-24] MEDS ORDERED: METOPROLOL TARTRATE 5 MG/5 ML VIAL IV ONE (01:10)
[2017-08-24] MEDS ORDERED: SODIUM POLYSTYRENE SULFATE 15 GM/60 ML BOTTLE ONE (02:17)
[2017-08-24] MEDS: LABETALOL 20 MG/4 ML SYRINGE IV PRN ×2 (03:13→07:17)
[2017-08-24 07:30] LABS: Basophils % 0.8 % (0.0-0.8); Eosinophils # 0.1 10*3/uL (0.0-0.87); Eosinophils % 1.1 % (0.00-10.9); Hematocrit 29.2 VOL% (35.7-47.0); Immature Granulocytes % 0.4 %; Immature Granulocytes Absolute 0.02 #; Lymphocytes # 0.7 10*3/uL (1.4-4.0); Lymphocytes % 13.9 % (21.3-54.2); Mean Corpuscular HGB Conc 30.8 GM/DL (32-36); Mean Corpuscular Hemoglobin 29 PG (27-34); Mean Corpuscular Volume 94.2 FL (87-102); Mean Platelet Volume 9.2 FL (9.6-12.0); Monocytes # 0.6 10*3/uL (0.11-0.8); Monocytes % 10.7 % (1.7-12.7); Neutrophils # 3.9 10*3/uL (1.4-7.4); Neutrophils % 73.1 % (38.7-73.9); Platelet Count 177 T/CUMM (130-400); White Blood Count 5.3 T/CUMM (4-12)
[2017-08-24] MEDS: LEVALBUTEROL 1.25 MG/3 ML NEB RESP TX SCH ×3 (07:30→19:49)
[2017-08-24 08:00] LABS: Calcium 9.3 MG/DL (8.5-10.1); Osmolality,Calculated 311.4 MOS/KG (273-304)
[2017-08-24 08:10] LABS: Potassium 6.1 MMOL/L (3.5-5.1)
[2017-08-24] MEDS: PANTOPRAZOLE 40 MG TABLET PO SCH (08:22)
[2017-08-24] MEDS: SEVELAMER CARBONATE 800 MG TABLET PO SCH ×5 (08:22→21:36)
[2017-08-24] MEDS: ENOXAPARIN 30 MG/0.3 ML SYRINGE SUBCUT SCH (08:23)
[2017-08-24] MEDS: ASPIRIN EC 81 MG TABLET PO SCH (08:23)
[2017-08-24 11:10] LABS: Hepatitis A Ab IgM Quant 0.17 Index; Hepatitis A Ab IgM Result Negative (Negative); Hepatitis B Core IgM Quant 0.18 Index; Hepatitis B Core IgM Result Negative (Negative); Hepatitis B Surface Ag Quant < 0.10 Index; Hepatitis B Surface Ag Result Negative (Negative); Hepatitis C Virus Ab Quant > 11.00 Index; Hepatitis C Virus Ab Result Positive (Negative)
[2017-08-24] MEDS: ZALEPLON 5 MG CAPSULE PO PRN (21:36)
[2017-08-24] MEDS ORDERED: ACETAMINOPHEN 325 MG TABLET PO PRN (21:44)
[2017-08-25] MEDS: LEVALBUTEROL 1.25 MG/3 ML NEB RESP TX SCH ×4 (01:16→19:15)
[2017-08-25] MEDS ORDERED: SEVELAMER CARBONATE 800 MG TABLET PO SCH (07:00)
[2017-08-25] MEDS: SEVELAMER CARBONATE 800 MG TABLET PO SCH ×3 (08:06→17:09)
[2017-08-25] MEDS: ASPIRIN EC 81 MG TABLET PO SCH (08:06)
[2017-08-25] MEDS: PANTOPRAZOLE 40 MG TABLET PO SCH (08:06)
[2017-08-25] MEDS: ENOXAPARIN 30 MG/0.3 ML SYRINGE SUBCUT SCH (08:06)
[2017-08-25 11:20] LABS: Calcium 9.2 MG/DL (8.5-10.1); Osmolality,Calculated 274.1 MOS/KG (273-304)
[2017-08-25] MEDS: ZALEPLON 5 MG CAPSULE PO PRN (20:52)
[2017-08-25] MEDS ORDERED: LEVOFLOXACIN INJ 500 MG in PREMIX 1 EACH IV SCH (21:00)
[2017-08-26] MEDS: LEVALBUTEROL 1.25 MG/3 ML NEB RESP TX SCH ×3 (00:48→14:26)
[2017-08-26 06:10] LABS: Eosinophils # 0.2 10*3/uL (0.0-0.87); Eosinophils % 4.4 % (0.00-10.9); Hematocrit 27.8 VOL% (35.7-47.0); Hemoglobin 8.9 GM/DL (12.0-16.0); Immature Granulocytes % 0.2 %; Immature Granulocytes Absolute 0.01 #; Lymphocytes # 0.7 10*3/uL (1.4-4.0); Lymphocytes % 17.9 % (21.3-54.2); Mean Corpuscular Hemoglobin 30 PG (27-34); Mean Corpuscular Volume 93.3 FL (87-102); Mean Platelet Volume 10.3 FL (9.6-12.0); Monocytes # 0.5 10*3/uL (0.11-0.8); Monocytes % 12.3 % (1.7-12.7); Neutrophils # 2.7 10*3/uL (1.4-7.4); Neutrophils % 64.2 % (38.7-73.9); Platelet Count 189 T/CUMM (130-400); Red Blood Count 2.98 MC/CUMM (3.8-5.5); Red Cell Distribution Width 17.2 % (9.3-17.3); White Blood Count 4.1 T/CUMM (4-12)
[2017-08-26 06:37] LABS: Albumin 2.6 G/DL (3.4-5.0); Calcium 9.6 MG/DL (8.5-10.1); Osmolality,Calculated 276.1 MOS/KG (273-304); Potassium 4.9 MMOL/L (3.5-5.1)
[2017-08-26] MEDS: SEVELAMER CARBONATE 800 MG TABLET PO SCH ×2 (08:55→12:04)
[2017-08-26] MEDS: ENOXAPARIN 30 MG/0.3 ML SYRINGE SUBCUT SCH (09:41)
[2017-08-26] MEDS: PANTOPRAZOLE 40 MG TABLET PO SCH (09:41)
[2017-08-26] MEDS: ASPIRIN EC 81 MG TABLET PO SCH (09:41)
[2017-08-26 20:16] VITALS: BP 161/89
== END 2017-08-26 16:50 | disposition home or self-care (01) | DRG 640 ==
LOC: EDUNIT# → EDBD → N.ED 20:55 → N.CC 23:43 → N.EDINP 08-24 00:43 → N.CC 08-24 01:40 → N.2E 08-24 16:04
PROVIDERS: ADMIT Internal Medicine; ATTEND Internal Medicine

== ENCOUNTER 2017-10-04 09:34 | Inpatient (IN) ==
[2017-10-04] MEDS: ALBUTEROL 2.5 MG/3 ML NEB RESP TX SCH ×3 (10:30→11:00)
[2017-10-04] MEDS ORDERED: ONDANSETRON 4 MG/2 ML VIAL ONE (10:30)
[2017-10-04] MEDS ORDERED: ONDANSETRON 4 MG/2 ML VIAL IV STA (10:31)
[2017-10-04 10:36] LABS: Basophils % 0.8 % (0.0-0.8); Eosinophils % 0.8 % (0.00-10.9); Hematocrit 25.3 VOL% (35.7-47.0); Immature Granulocytes % 0.6 %; Immature Granulocytes Absolute 0.03 #; Lymphocytes # 0.8 10*3/uL (1.4-4.0); Lymphocytes % 15.6 % (21.3-54.2); Mean Corpuscular HGB Conc 31.6 GM/DL (32-36); Mean Corpuscular Hemoglobin 29 PG (27-34); Mean Corpuscular Volume 90.7 FL (87-102); Mean Platelet Volume 10.5 FL (9.6-12.0); Monocytes # 0.5 10*3/uL (0.11-0.8); Monocytes % 9.8 % (1.7-12.7); Neutrophils # 3.6 10*3/uL (1.4-7.4); Neutrophils % 72.4 % (38.7-73.9); Platelet Count 235 T/CUMM (130-400); Red Blood Count 2.79 MC/CUMM (3.8-5.5); Red Cell Distribution Width 17.7 % (9.3-17.3)
[2017-10-04 10:50] LABS: Albumin 3.3 G/DL (3.4-5.0); Bilirubin,Total 0.4 MG/DL (0.2-1.0); Calcium 10.2 MG/DL (8.5-10.1); Osmolality,Calculated 288.9 MOS/KG (273-304); Total Protein 8.9 G/DL (6.4-8.3)
[2017-10-04 10:52] LABS: Potassium 7.5 MMOL/L (3.5-5.1)
[2017-10-04] MEDS ORDERED: DEXTROSE 50% 25 GM/50 ML VIAL IV STA (10:52)
[2017-10-04] MEDS ORDERED: INSULIN REGULAR 100 UNIT/ML IV STA (10:52)
[2017-10-04] MEDS ORDERED: DEXTROSE 50% 25 GM/50 ML SYRINGE IV ONE (11:13)
[2017-10-04] MEDS ORDERED: ALBUTEROL 2.5 MG/3 ML NEB RESP TX PRN (11:32)
[2017-10-04] MEDS ORDERED: ONDANSETRON 4 MG/2 ML VIAL IV PRN (11:32)
[2017-10-04] MEDS ORDERED: BISACODYL 5 MG TABLET PO PRN (11:32)
[2017-10-04] MEDS ORDERED: CALCIUM CHLORIDE 1,000 MG/10 ML SYRINGE IV STA (11:41)
[2017-10-04] MEDS ORDERED: SEVELAMER CARBONATE 800 MG TABLET PO SCH (13:17)
[2017-10-04] MEDS: SEVELAMER CARBONATE 800 MG TABLET PO SCH ×2 (13:57→17:11)
[2017-10-04] MEDS: levETIRAcetam 500 MG TABLET PO SCH (21:00)
[2017-10-04] MEDS: ATORVASTATIN 10 MG TABLET PO SCH (21:01)
[2017-10-04] MEDS: OLANZapine 5 MG TABLET PO SCH (21:02)
[2017-10-05 04:48] LABS: Basophils % 0.6 % (0.0-0.8); Eosinophils # 0.1 10*3/uL (0.0-0.87); Eosinophils % 2.4 % (0.00-10.9); Hemoglobin 6.8 GM/DL (12.0-16.0); Immature Granulocytes % 0.3 %; Immature Granulocytes Absolute 0.01 #; Lymphocytes # 0.8 10*3/uL (1.4-4.0); Lymphocytes % 22.3 % (21.3-54.2); Mean Corpuscular HGB Conc 32.4 GM/DL (32-36); Mean Corpuscular Hemoglobin 29 PG (27-34); Mean Platelet Volume 10.4 FL (9.6-12.0); Monocytes # 0.5 10*3/uL (0.11-0.8); Monocytes % 14.6 % (1.7-12.7); NRBC # 0.02 10*3/uL; Neutrophils % 59.8 % (38.7-73.9); Platelet Count 198 T/CUMM (130-400); Red Blood Count 2.36 MC/CUMM (3.8-5.5); Red Cell Distribution Width 17.8 % (9.3-17.3); White Blood Count 3.4 T/CUMM (4-12)
[2017-10-05 05:05] LABS: INR 1.5; PT Patient Result 16.1 SECS
[2017-10-05 05:20] LABS: Albumin 2.5 G/DL (3.4-5.0); Bilirubin,Total 0.7 MG/DL (0.2-1.0); Calcium 9.5 MG/DL (8.5-10.1); Osmolality,Calculated 284.2 MOS/KG (273-304); Total Protein 7.6 G/DL (6.4-8.3)
[2017-10-05] MEDS: ASPIRIN EC 81 MG TABLET PO SCH (08:21)
[2017-10-05] MEDS: SEVELAMER CARBONATE 800 MG TABLET PO SCH ×3 (08:21→17:53)
[2017-10-05] MEDS: PANTOPRAZOLE 40 MG TABLET PO SCH (08:21)
[2017-10-05] MEDS: levETIRAcetam 500 MG TABLET PO SCH ×2 (08:21→20:17)
[2017-10-05] MEDS ORDERED: EPOETIN ALFA 2,000 UNIT/1 ML VIAL IV PRN (08:49)
[2017-10-05] MEDS: APIXABAN 2.5 MG TABLET PO SCH (20:17)
[2017-10-05] MEDS: ATORVASTATIN 10 MG TABLET PO SCH (20:17)
[2017-10-05] MEDS: OLANZapine 5 MG TABLET PO SCH (20:17)
[2017-10-06] MEDS: ASPIRIN EC 81 MG TABLET PO SCH (08:15)
[2017-10-06] MEDS: SEVELAMER CARBONATE 800 MG TABLET PO SCH ×3 (08:15→17:38)
[2017-10-06] MEDS: levETIRAcetam 500 MG TABLET PO SCH ×2 (08:15→20:15)
[2017-10-06] MEDS: predniSONE 20 MG TABLET PO SCH (08:16)
[2017-10-06] MEDS: PANTOPRAZOLE 40 MG TABLET PO SCH (08:16)
[2017-10-06] MEDS: APIXABAN 2.5 MG TABLET PO SCH ×2 (08:16→20:15)
[2017-10-06] MEDS: OLANZapine 5 MG TABLET PO SCH (20:14)
[2017-10-06] MEDS: ATORVASTATIN 10 MG TABLET PO SCH (20:15)
[2017-10-07 05:41] LABS: Basophils % 0.4 % (0.0-0.8); Eosinophils # 0.1 10*3/uL (0.0-0.87); Hematocrit 23.4 VOL% (35.7-47.0); Hemoglobin 7.5 GM/DL (12.0-16.0); Immature Granulocytes % 0.4 %; Immature Granulocytes Absolute 0.02 #; Lymphocytes # 0.7 10*3/uL (1.4-4.0); Lymphocytes % 13.6 % (21.3-54.2); Mean Corpuscular HGB Conc 32.1 GM/DL (32-36); Mean Corpuscular Hemoglobin 29 PG (27-34); Mean Corpuscular Volume 91.1 FL (87-102); Mean Platelet Volume 9.4 FL (9.6-12.0); Monocytes # 0.7 10*3/uL (0.11-0.8); Monocytes % 13.8 % (1.7-12.7); NRBC # 0.02 10*3/uL; Neutrophils # 3.5 10*3/uL (1.4-7.4); Neutrophils % 69.8 % (38.7-73.9); Platelet Count 260 T/CUMM (130-400); Red Blood Count 2.57 MC/CUMM (3.8-5.5); Red Cell Distribution Width 17.7 % (9.3-17.3)
[2017-10-07 06:07] LABS: Albumin 2.5 G/DL (3.4-5.0); Calcium 8.9 MG/DL (8.5-10.1); Osmolality,Calculated 272.7 MOS/KG (273-304); Potassium 4.9 MMOL/L (3.5-5.1)
[2017-10-07 06:09] LABS: Osmolality,Calculated 270.8 MOS/KG (273-304); Potassium 4.9 MMOL/L (3.5-5.1)
[2017-10-07] MEDS: ASPIRIN EC 81 MG TABLET PO SCH (08:19)
[2017-10-07] MEDS: APIXABAN 2.5 MG TABLET PO SCH ×2 (08:19→20:50)
[2017-10-07] MEDS: SEVELAMER CARBONATE 800 MG TABLET PO SCH ×3 (08:20→18:03)
[2017-10-07] MEDS: predniSONE 20 MG TABLET PO SCH (08:21)
[2017-10-07] MEDS: PANTOPRAZOLE 40 MG TABLET PO SCH (08:21)
[2017-10-07] MEDS: levETIRAcetam 500 MG TABLET PO SCH ×2 (08:21→20:37)
[2017-10-07] MEDS: hydrALAZINE 25 MG TABLET PO SCH ×3 (13:40→20:37)
[2017-10-07] MEDS: OLANZapine 5 MG TABLET PO SCH (20:36)
[2017-10-07] MEDS: ATORVASTATIN 10 MG TABLET PO SCH (20:36)
[2017-10-08 05:57] LABS: Basophils # 0.1 10*3/uL (0.0-0.2); Basophils % 0.8 % (0.0-0.8); Eosinophils # 0.1 10*3/uL (0.0-0.87); Eosinophils % 1.4 % (0.00-10.9); Hematocrit 25.4 VOL% (35.7-47.0); Hemoglobin 7.8 GM/DL (12.0-16.0); Immature Granulocytes % 0.5 %; Immature Granulocytes Absolute 0.03 #; Lymphocytes # 0.9 10*3/uL (1.4-4.0); Lymphocytes % 13.9 % (21.3-54.2); Mean Corpuscular HGB Conc 30.7 GM/DL (32-36); Mean Corpuscular Hemoglobin 29 PG (27-34); Mean Corpuscular Volume 94.4 FL (87-102); Mean Platelet Volume 9.8 FL (9.6-12.0); Monocytes # 0.8 10*3/uL (0.11-0.8); Neutrophils # 4.7 10*3/uL (1.4-7.4); Neutrophils % 71.4 % (38.7-73.9); Platelet Count 290 T/CUMM (130-400); Red Blood Count 2.69 MC/CUMM (3.8-5.5); Red Cell Distribution Width 18.4 % (9.3-17.3); White Blood Count 6.6 T/CUMM (4-12)
[2017-10-08 06:22] LABS: Albumin 2.5 G/DL (3.4-5.0); Calcium 9.2 MG/DL (8.5-10.1); Osmolality,Calculated 269.5 MOS/KG (273-304); Potassium 4.8 MMOL/L (3.5-5.1)
[2017-10-08] MEDS: SEVELAMER CARBONATE 800 MG TABLET PO SCH (07:48)
[2017-10-08 08:17] VITALS: BP 128/84
[2017-10-08] MEDS ORDERED: amLODIPine 5 MG TABLET PO SCH (09:00)
[2017-10-08] MEDS: PANTOPRAZOLE 40 MG TABLET PO SCH (09:31)
[2017-10-08] MEDS: predniSONE 20 MG TABLET PO SCH (09:32)
[2017-10-08] MEDS: levETIRAcetam 500 MG TABLET PO SCH (09:32)
[2017-10-08] MEDS: hydrALAZINE 25 MG TABLET PO SCH (09:32)
[2017-10-08] MEDS: APIXABAN 2.5 MG TABLET PO SCH (09:32)
[2017-10-08] MEDS: ASPIRIN EC 81 MG TABLET PO SCH (09:32)
== END 2017-10-08 11:30 | disposition home or self-care (01) | DRG 640 ==
LOC: EDUNIT# → N.ED 09:34 → N.EDINP 11:00 → SUATTDRO 11:00 → N.CC 11:49 → N.4E 10-07 06:57
PROVIDERS: ADMIT Family Medicine; ATTEND Internal Medicine

== ENCOUNTER 2017-11-06 02:36 | Inpatient (IN) ==
[2017-11-13 12:04] VITALS: BP 152/95
== END 2017-11-13 12:25 | DRG 207 ==
LOC: EDUNIT# → N.ED 02:36 → N.EDINP 05:21 → SUATTDRO 05:21 → N.ICU 12:45
PROVIDERS: ADMIT Internal Medicine Nephrology; ATTEND Internal Medicine Cardiovascular Disease

== ENCOUNTER 2018-05-04 22:44 | Inpatient (IN) ==
[2018-05-04 23:29] LABS: Basophils # 0.1 10*3/uL (0.0-0.2); Eosinophils # 0.1 10*3/uL (0.0-0.87); Eosinophils % 2.1 % (0.00-10.9); Hematocrit 36.5 VOL% (35.7-47.0); Immature Granulocytes % 0.6 %; Immature Granulocytes Absolute 0.03 #; Lymphocytes # 0.8 10*3/uL (1.4-4.0); Lymphocytes % 14.6 % (21.3-54.2); Mean Corpuscular HGB Conc 30.1 GM/DL (32-36); Mean Corpuscular Hemoglobin 29 PG (27-34); Mean Corpuscular Volume 95.1 FL (87-102); Mean Platelet Volume 10.3 FL (9.6-12.0); Monocytes # 0.2 10*3/uL (0.11-0.8); Monocytes % 3.7 % (1.7-12.7); Platelet Count 154 T/CUMM (130-400); Red Blood Count 3.84 MC/CUMM (3.8-5.5); Red Cell Distribution Width 17.5 % (9.3-17.3); White Blood Count 5.1 T/CUMM (4-12)
[2018-05-04 23:56] LABS: ABG Base Excess 5.6 MMOL/L (-2.5-2.5); ABG HCO3 29.1 MMOL/L (20-26); ABG Oxygen Saturation 75.4 % (95-100); ABG PCO2 40.9 MM HG (35-48); ABG PH 7.469 (7.35-7.45); ABG PO2 44.2 MM HG (80-95); ABG TCO2 27.3 MMOL/L (23-27); Allen Test Positive; Pt O2 Delivery Device BIPAP
[2018-05-05 00:03] LABS: Albumin 3.2 G/DL (3.4-5.0); Bilirubin,Total 0.7 MG/DL (0.2-1.0); Calcium 9.5 MG/DL (8.5-10.1); Osmolality,Calculated 295.3 MOS/KG (273-304); Potassium 4.1 MMOL/L (3.5-5.1); Total Protein 9.6 G/DL (6.4-8.3)
[2018-05-05] MEDS ORDERED: ALBUTEROL 2.5 MG/3 ML NEB RESP TX PRN (01:43)
[2018-05-05] MEDS ORDERED: ACETAMINOPHEN 325 MG TABLET PO PRN ×2 (01:43→14:34)
[2018-05-05] MEDS ORDERED: TISSUE ADHESIVE 1 EACH APPLICATOR TOP ONE (02:12)
[2018-05-05] MEDS: hydrALAZINE 20 MG/1 ML VIAL IV PRN ×3 (03:22→07:29)
[2018-05-05 06:56] LABS: Basophils # 0.1 10*3/uL (0.0-0.2); Basophils % 1.2 % (0.0-0.8); Eosinophils % 0.9 % (0.00-10.9); Hemoglobin 8.1 GM/DL (12.0-16.0); Immature Granulocytes % 0.5 %; Immature Granulocytes Absolute 0.02 #; Lymphocytes # 0.7 10*3/uL (1.4-4.0); Lymphocytes % 15.4 % (21.3-54.2); Mean Corpuscular HGB Conc 31.2 GM/DL (32-36); Mean Corpuscular Hemoglobin 29 PG (27-34); Mean Corpuscular Volume 93.2 FL (87-102); Mean Platelet Volume 10.7 FL (9.6-12.0); Monocytes # 0.2 10*3/uL (0.11-0.8); Monocytes % 4.9 % (1.7-12.7); Neutrophils # 3.3 10*3/uL (1.4-7.4); Neutrophils % 77.1 % (38.7-73.9); Platelet Count 151 T/CUMM (130-400); Red Blood Count 2.79 MC/CUMM (3.8-5.5); Red Cell Distribution Width 17.3 % (9.3-17.3); White Blood Count 4.3 T/CUMM (4-12)
[2018-05-05 07:07] LABS: Calcium 9.1 MG/DL (8.5-10.1); Osmolality,Calculated 294.4 MOS/KG (273-304); Potassium 4.3 MMOL/L (3.5-5.1)
[2018-05-05] MEDS: PANTOPRAZOLE 40 MG TABLET PO SCH (07:59)
[2018-05-05] MEDS ORDERED: PANTOPRAZOLE 40 MG TABLET PO SCH (09:00)
[2018-05-05 13:26] LABS: Hepatitis A Ab IgM Quant 0.12 Index; Hepatitis A Ab IgM Result Negative (Negative); Hepatitis B Core IgM Quant 0.07 Index; Hepatitis B Core IgM Result Negative (Negative); Hepatitis B Surface Ag Quant < 0.10 Index; Hepatitis B Surface Ag Result Negative (Negative); Hepatitis C Virus Ab Quant > 11.00 Index; Hepatitis C Virus Ab Result Positive (Negative)
[2018-05-05] MEDS ORDERED: GLUCAGON 1 MG VIAL IM PRN (14:34)
[2018-05-05] MEDS ORDERED: SEVELAMER CARBONATE 800 MG TABLET PO SCH (14:34)
[2018-05-05] MEDS: SEVELAMER CARBONATE 800 MG TABLET PO SCH (16:36)
[2018-05-05] MEDS: METOPROLOL TARTRATE 50 MG TABLET PO SCH (20:56)
[2018-05-05] MEDS: levETIRAcetam 500 MG TABLET PO SCH (20:56)
[2018-05-05] MEDS: APIXABAN 2.5 MG TABLET PO SCH (20:57)
[2018-05-05] MEDS ORDERED: levETIRAcetam 500 MG TABLET PO SCH (21:00)
[2018-05-05] MEDS ORDERED: ATORVASTATIN 10 MG TABLET PO SCH (21:00)
[2018-05-05] MEDS ORDERED: OLANZapine 5 MG TABLET PO SCH (21:00)
[2018-05-05] MEDS: FLUTICASONE 50 MCG NASAL SPRAY 16 GM BOTTLE BOTH NARES SCH (21:42)
[2018-05-06 06:56] LABS: Basophils # 0.1 10*3/uL (0.0-0.2); Basophils % 1.6 % (0.0-0.8); Eosinophils # 0.1 10*3/uL (0.0-0.87); Eosinophils % 3.5 % (0.00-10.9); Hematocrit 27.9 VOL% (35.7-47.0); Hemoglobin 8.5 GM/DL (12.0-16.0); Immature Granulocytes % 0.3 %; Immature Granulocytes Absolute 0.01 #; Lymphocytes % 32.4 % (21.3-54.2); Mean Corpuscular HGB Conc 30.5 GM/DL (32-36); Mean Corpuscular Hemoglobin 29 PG (27-34); Mean Corpuscular Volume 94.9 FL (87-102); Monocytes # 0.3 10*3/uL (0.11-0.8); Monocytes % 7.9 % (1.7-12.7); Neutrophils # 1.7 10*3/uL (1.4-7.4); Neutrophils % 54.3 % (38.7-73.9); Platelet Count 167 T/CUMM (130-400); Red Blood Count 2.94 MC/CUMM (3.8-5.5); Red Cell Distribution Width 17.3 % (9.3-17.3); White Blood Count 3.2 T/CUMM (4-12)
[2018-05-06 07:23] LABS: Calcium 9.2 MG/DL (8.5-10.1); Osmolality,Calculated 278.2 MOS/KG (273-304); Potassium 4.3 MMOL/L (3.5-5.1)
[2018-05-06] MEDS: APIXABAN 2.5 MG TABLET PO SCH (08:13)
[2018-05-06] MEDS: PANTOPRAZOLE 40 MG TABLET PO SCH (08:13)
[2018-05-06] MEDS: SEVELAMER CARBONATE 800 MG TABLET PO SCH ×2 (08:13→12:05)
[2018-05-06] MEDS: levETIRAcetam 500 MG TABLET PO SCH (08:13)
[2018-05-06] MEDS: METOPROLOL TARTRATE 50 MG TABLET PO SCH (08:13)
[2018-05-06] MEDS ORDERED: ASPIRIN EC 81 MG TABLET PO SCH (09:00)
[2018-05-06] MEDS ORDERED: amLODIPine 5 MG TABLET PO SCH ×2 (09:00)
[2018-05-06] MEDS ORDERED: SERTRALINE 50 MG TABLET PO SCH (09:00)
[2018-05-06] MEDS: FLUTICASONE 50 MCG NASAL SPRAY 16 GM BOTTLE BOTH NARES SCH (09:46)
[2018-05-06] MEDS ORDERED: DEXTROSE 50% 25 GM/50 ML VIAL IV PRN (11:42)
[2018-05-06 13:06] VITALS: BP 151/76
== END 2018-05-06 13:57 | disposition home or self-care (01) | DRG 189 ==
LOC: N.ED 22:44 → SUATTDRO 05-05 01:43 → N.EDINP 05-05 01:43 → N.ICU 05-05 02:16 → N.5E 05-05 15:06
PROVIDERS: ADMIT Internal Medicine Nephrology; ATTEND Internal Medicine

== ENCOUNTER 2019-07-08 05:39 | Inpatient (IN) ==
[2019-07-08] MEDS ORDERED: hydrALAZINE 20 MG/1 ML VIAL IV STA (05:55)
[2019-07-08 06:04] LABS: Basophils # 0.1 10*3/uL (0.0-0.2); Basophils % 1.3 % (0.0-0.8); Eosinophils # 0.3 10*3/uL (0.0-0.87); Eosinophils % 7.3 % (0.00-10.9); Hematocrit 29.7 VOL% (35.7-47.0); Hemoglobin 9.1 GM/DL (12.0-16.0); Immature Granulocytes % 0.3 %; Immature Granulocytes Absolute 0.01 #; Lymphocytes # 0.8 10*3/uL (1.4-4.0); Lymphocytes % 20.7 % (21.3-54.2); Mean Corpuscular HGB Conc 30.6 GM/DL (32-36); Monocytes % 12.7 % (1.7-12.7); Neutrophils % 57.7 % (38.7-73.9); Platelet Count 177 T/CUMM (130-400); Red Blood Count 2.97 MC/CUMM (3.8-5.5); Red Cell Distribution Width 15.9 % (9.3-17.3); White Blood Count 3.9 T/CUMM (4-12)
[2019-07-08] MEDS ORDERED: LABETALOL 100 MG/20 ML VIAL IV STA ×2 (06:10→10:32)
[2019-07-08 06:13] LABS: PT Patient Result 10.6 SECS (9.6-12.2); Partial Thromboplastin Time 24.7 SECS (20.8-36.0)
[2019-07-08 06:25] LABS: Alanine Aminotransferase 12 U/L (13-56); Alkaline Phosphatase 88 U/L (45-117); Aspartate Amino Transferase 16 U/L (0-37); Blood Urea Nitrogen 36 MG/DL (7-18); Calcium 8.7 MG/DL (8.5-10.1); Estimated Glom Filtration Rate 8 ML/MIN; Glucose 88 MG/DL (74-106); Osmolality,Calculated 272.4 MOS/KG (273-304); Total Protein 8.9 G/DL (6.4-8.3)
[2019-07-08] MEDS ORDERED: ONDANSETRON 4 MG/2 ML VIAL IV PRN (13:45)
[2019-07-08] MEDS ORDERED: DOCUSATE SODIUM 100 MG CAPSULE PO PRN (13:45)
[2019-07-08] MEDS ORDERED: ACETAMINOPHEN 325 MG TABLET PO PRN (13:45)
[2019-07-08 15:14] LABS: Risk Ratio 2.69; VLDL CHOLESTEROL 15.6 MG/DL
[2019-07-08] MEDS ORDERED: LABETALOL 100 MG/20 ML VIAL IV PRN (16:46)
[2019-07-08] MEDS: ASPIRIN EC 325 MG TABLET PO SCH (20:39)
[2019-07-08] MEDS: cloNIDine 0.1 MG TABLET PO SCH (20:39)
[2019-07-08] MEDS: levETIRAcetam 500 MG TABLET PO SCH (20:39)
[2019-07-08] MEDS: ENOXAPARIN 30 MG/0.3 ML SYRINGE SUBCUT SCH (20:40)
[2019-07-08] MEDS: ATORVASTATIN 40 MG TABLET PO SCH (20:40)
[2019-07-08] MEDS: CLOPIDOGREL 75 MG TABLET PO SCH (20:40)
[2019-07-08] MEDS: NON-FORMULARY MEDICATION (Sucroferric Oxyhydroxide [Velphoro] 500 MG) PO SCH (20:41)
[2019-07-09 05:12] LABS: Basophils % 1.1 % (0.0-0.8); Eosinophils # 0.3 10*3/uL (0.0-0.87); Hematocrit 26.7 VOL% (35.7-47.0); Hemoglobin 8.4 GM/DL (12.0-16.0); Immature Granulocytes % 0.3 %; Immature Granulocytes Absolute 0.01 #; Lymphocytes # 0.7 10*3/uL (1.4-4.0); Lymphocytes % 20.7 % (21.3-54.2); Mean Corpuscular HGB Conc 31.5 GM/DL (32-36); Mean Corpuscular Volume 97.8 FL (87-102); Mean Platelet Volume 10.3 FL (9.6-12.0); Monocytes % 15.1 % (1.7-12.7); Neutrophils % 55.8 % (38.7-73.9); Platelet Count 178 T/CUMM (130-400); Red Blood Count 2.73 MC/CUMM (3.8-5.5); Red Cell Distribution Width 15.9 % (9.3-17.3); White Blood Count 3.6 T/CUMM (4-12)
[2019-07-09 05:37] LABS: Calcium 8.1 MG/DL (8.5-10.1); Osmolality,Calculated 281.1 MOS/KG (273-304)
[2019-07-09] MEDS: cloNIDine 0.1 MG TABLET PO SCH ×3 (09:06→21:24)
[2019-07-09] MEDS: LOSARTAN 50 MG TABLET PO SCH (09:06)
[2019-07-09] MEDS: levETIRAcetam 500 MG TABLET PO SCH ×2 (09:06→21:24)
[2019-07-09] MEDS: CLOPIDOGREL 75 MG TABLET PO SCH (09:06)
[2019-07-09] MEDS ORDERED: HEPARIN 10,000 UNIT/10 ML VIAL IV SCH (11:00)
[2019-07-09] MEDS: ASPIRIN EC 325 MG TABLET PO SCH (13:05)
[2019-07-09] MEDS: PANTOPRAZOLE 40 MG TABLET PO SCH (13:05)
[2019-07-09] MEDS: NON-FORMULARY MEDICATION (Sucroferric Oxyhydroxide [Velphoro] 500 MG) PO SCH ×3 (13:15→21:27)
[2019-07-09] MEDS: ENOXAPARIN 30 MG/0.3 ML SYRINGE SUBCUT SCH (21:24)
[2019-07-09] MEDS: ATORVASTATIN 40 MG TABLET PO SCH (21:24)
[2019-07-10] MEDS: ASPIRIN EC 325 MG TABLET PO SCH (08:56)
[2019-07-10] MEDS: levETIRAcetam 500 MG TABLET PO SCH ×2 (08:56→21:09)
[2019-07-10] MEDS: CLOPIDOGREL 75 MG TABLET PO SCH (08:56)
[2019-07-10] MEDS: PANTOPRAZOLE 40 MG TABLET PO SCH (08:56)
[2019-07-10] MEDS: cloNIDine 0.1 MG TABLET PO SCH ×3 (08:56→21:09)
[2019-07-10] MEDS: LOSARTAN 50 MG TABLET PO SCH (08:56)
[2019-07-10] MEDS: NON-FORMULARY MEDICATION (Sucroferric Oxyhydroxide [Velphoro] 500 MG) PO SCH ×3 (08:57→22:54)
[2019-07-10] MEDS: ATORVASTATIN 40 MG TABLET PO SCH (21:09)
[2019-07-10] MEDS: ENOXAPARIN 30 MG/0.3 ML SYRINGE SUBCUT SCH (21:09)
[2019-07-11] MEDS: cloNIDine 0.1 MG TABLET PO SCH ×4 (09:06→21:00)
[2019-07-11] MEDS: levETIRAcetam 500 MG TABLET PO SCH ×2 (09:06→21:00)
[2019-07-11] MEDS: ASPIRIN EC 325 MG TABLET PO SCH (09:07)
[2019-07-11] MEDS: LOSARTAN 50 MG TABLET PO SCH (09:07)
[2019-07-11] MEDS: CLOPIDOGREL 75 MG TABLET PO SCH (09:07)
[2019-07-11] MEDS: PANTOPRAZOLE 40 MG TABLET PO SCH (09:07)
[2019-07-11] MEDS: NON-FORMULARY MEDICATION (Sucroferric Oxyhydroxide [Velphoro] 500 MG) PO SCH ×3 (10:51→21:00)
[2019-07-11 11:54] LABS: Basophils % 1.2 % (0.0-0.8); Eosinophils # 0.2 10*3/uL (0.0-0.87); Eosinophils % 6.8 % (0.00-10.9); Hematocrit 26.3 VOL% (35.7-47.0); Immature Granulocytes % 0.3 %; Immature Granulocytes Absolute 0.01 #; Lymphocytes # 0.5 10*3/uL (1.4-4.0); Lymphocytes % 15.7 % (21.3-54.2); Mean Corpuscular HGB Conc 30.4 GM/DL (32-36); Mean Corpuscular Volume 99.2 FL (87-102); Mean Platelet Volume 9.6 FL (9.6-12.0); Monocytes % 12.7 % (1.7-12.7); Neutrophils % 63.3 % (38.7-73.9); Platelet Count 181 T/CUMM (130-400); Red Blood Count 2.65 MC/CUMM (3.8-5.5); Red Cell Distribution Width 15.6 % (9.3-17.3); White Blood Count 3.2 T/CUMM (4-12)
[2019-07-11 12:17] LABS: Osmolality,Calculated 279.4 MOS/KG (273-304)
[2019-07-11] MEDS ORDERED: NITROGLYCERIN SL 0.4 MG TABLET SL ONE (17:59)
[2019-07-11 18:44] LABS: Basophils # 0.1 10*3/uL (0.0-0.2); Basophils % 1.5 % (0.0-0.8); Eosinophils # 0.2 10*3/uL (0.0-0.87); Hematocrit 32.9 VOL% (35.7-47.0); Hemoglobin 10.3 GM/DL (12.0-16.0); Immature Granulocytes % 0.6 %; Immature Granulocytes Absolute 0.02 #; Lymphocytes # 0.6 10*3/uL (1.4-4.0); Lymphocytes % 18.6 % (21.3-54.2); Mean Corpuscular HGB Conc 31.3 GM/DL (32-36); Mean Corpuscular Volume 96.8 FL (87-102); Monocytes % 10.5 % (1.7-12.7); Neutrophils % 62.8 % (38.7-73.9); Platelet Count 232 T/CUMM (130-400); Red Cell Distribution Width 15.3 % (9.3-17.3); White Blood Count 3.3 T/CUMM (4-12)
[2019-07-11 19:01] LABS: Albumin 3.4 G/DL (3.4-5.0); Bilirubin,Total 0.4 MG/DL (0.2-1.0); Calcium 8.7 MG/DL (8.5-10.1); Osmolality,Calculated 271.2 MOS/KG (273-304)
[2019-07-11] MEDS: ENOXAPARIN 30 MG/0.3 ML SYRINGE SUBCUT SCH (20:59)
[2019-07-11] MEDS: ATORVASTATIN 40 MG TABLET PO SCH (21:00)
[2019-07-12] MEDS: levETIRAcetam 500 MG TABLET PO SCH ×2 (09:04→20:30)
[2019-07-12] MEDS: cloNIDine 0.1 MG TABLET PO SCH ×3 (09:04→20:30)
[2019-07-12] MEDS: PANTOPRAZOLE 40 MG TABLET PO SCH (09:04)
[2019-07-12] MEDS: CLOPIDOGREL 75 MG TABLET PO SCH (09:04)
[2019-07-12] MEDS: LOSARTAN 50 MG TABLET PO SCH (09:04)
[2019-07-12] MEDS: ASPIRIN EC 325 MG TABLET PO SCH (09:04)
[2019-07-12] MEDS: NON-FORMULARY MEDICATION (Sucroferric Oxyhydroxide [Velphoro] 500 MG) PO SCH ×3 (09:05→21:54)
[2019-07-12] MEDS: HEPARIN 5,000 UNIT/1 ML VIAL SUBCUT SCH (20:30)
[2019-07-12] MEDS: ATORVASTATIN 40 MG TABLET PO SCH (20:30)
[2019-07-13] MEDS ORDERED: LIDOCAINE/PRILOCAINE CREAM 5 GM TUBE TOP PRN (08:11)
[2019-07-13] MEDS: HEPARIN 5,000 UNIT/1 ML VIAL SUBCUT SCH (08:44)
[2019-07-13 11:16] VITALS: BP 124/69
[2019-07-13] MEDS: PANTOPRAZOLE 40 MG TABLET PO SCH (17:13)
[2019-07-13] MEDS: cloNIDine 0.1 MG TABLET PO SCH ×2 (17:13)
[2019-07-13] MEDS: LOSARTAN 50 MG TABLET PO SCH (17:13)
[2019-07-13] MEDS: CLOPIDOGREL 75 MG TABLET PO SCH (17:13)
[2019-07-13] MEDS: ASPIRIN EC 325 MG TABLET PO SCH (17:13)
[2019-07-13] MEDS: levETIRAcetam 500 MG TABLET PO SCH (17:13)
[2019-07-13] MEDS: NON-FORMULARY MEDICATION (Sucroferric Oxyhydroxide [Velphoro] 500 MG) PO SCH ×2 (17:14→17:17)
== END 2019-07-13 18:11 | disposition home or self-care (01) | DRG 56 ==
LOC: N.EDINP 05:39 → N.ED 05:39 → SUATTDRO 13:00 → N.2W 13:30 → N.5E 07-09 17:42
PROVIDERS: ADMIT Family Medicine; ATTEND Emergency Medicine